=== PATIENT | female | born 1975 | race Caucasian/White ===

== ENCOUNTER → 2016-12-28 | Outpatient (CLI) | payer BC ==
--- NOTE | 2016-12-28 08:55 | US ---
EXAMINATION TYPE: US duplex aorta DATE OF EXAM: 12/28/2016 COMPARISON: NONE CLINICAL HISTORY: 42-year-old female Z82.49 family history AORTIC ANEURYSM. TECHNIQUE: Multiple sonographic images of the abdominal aorta were obtained. FINDINGS: PRINCIPAL STRATEGIST NOTES: Gross morbid obesity, technically difficult study. Abdominal Aorta: Proximal: 2.2cm Mid: 1.9cm Distal: 1.9cm Bifurcation (right and left common iliac arteries): 1.1cm 1.1cm IMPRESSION: 1. Technically difficult exam due to large patient body habitus. 2. Within this limitation, no evidence for significant ectasia or abdominal aortic aneurysm.
== END | disposition home or self-care (01) ==
LOC: RADUSWWP 08:14
PROVIDERS: ATTEND Family Medicine
DX: Z13.6 Encounter for screening for cardiovascular disorders (principal); Z82.49 Family history of ischemic heart disease and other diseases of the circulatory system; R93.9 Diagnostic imaging inconclusive due to excess body fat of patient
CPT/HCPCS: 93979

== ENCOUNTER → 2017-03-28 | Outpatient (CLI) | payer BC ==
--- NOTE | 2017-03-28 12:39 | MM ---
Reason for exam: screening (asymptomatic). Last mammogram was performed 1 year ago. History: Patient is nulliparous. Family history of breast cancer in 2 grandmothers. Took hormonal contraceptives for 2 years beginning at age 19. Physical Findings: A clinical breast exam by your physician is recommended on an annual basis and results should be correlated with mammographic findings. MG Screening Mammo w CAD Bilateral CC and MLO view(s) were taken. Prior study comparison: March 19, 2016, bilateral MG screening mammo w CAD. March 18, 2015, bilateral MG screening mammo w CAD. The breast tissue is heterogeneously dense. This may lower the sensitivity of mammography. No suspicious abnormality. No significant changes when compared with prior studies. ASSESSMENT: Negative, BI-RAD 1 RECOMMENDATION: Routine screening mammogram of both breasts in 1 year.
== END | disposition home or self-care (01) ==
LOC: RADMAMWWP 06:47
PROVIDERS: ATTEND Family Medicine
DX: Z12.31 Encounter for screening mammogram for malignant neoplasm of breast (principal)

== ENCOUNTER → 2017-07-02 | Outpatient (CLI) | payer BC ==
[2017-07-02 09:03] LABS: Basophils # (A) 0.1 k/uL (0-0.2); Basophils % (A) 1 %; Eosinophils # (A) 0.2 k/uL (0-0.7); Eosinophils % (A) 3 %; HCT 42.4 % (34.0-46.0); HGB 14.3 gm/dL (11.4-16.0); Lymphocytes # (A) 2.4 k/uL (1.0-4.8); Lymphocytes % (A) 28 %; MCHC 33.7 g/dL (31.0-37.0); MCV 88.9 fL (80.0-100.0); Monocytes # (A) 0.6 k/uL (0-1.0); Monocytes % (A) 7 %; Neutrophils % (A) 59 %; Platelet Count 381 k/uL (150-450); RBC 4.77 m/uL (3.80-5.40); RDW 12.8 % (11.5-15.5); WBC 8.4 k/uL (3.8-10.6)
[2017-07-02 09:22] LABS: ALT 30 U/L (9-52); AST 16 U/L (14-36); Albumin 4.2 g/dL (3.5-5.0); Alkaline Phosphatase 48 U/L (38-126); Anion Gap 12 mmol/L; Blood Urea Nitrogen 12 mg/dL (7-17); Calcium 9.5 mg/dL (8.4-10.2); Carbon Dioxide 27 mmol/L (22-30); Chloride 102 mmol/L (98-107); Cholesterol 128 mg/dL (<200); Glucose 139 mg/dL (74-99); HDL Cholesterol 54 mg/dL (40-60); LDL Cholesterol,Calculated 43 mg/dL (0-99); Potassium 4.1 mmol/L (3.5-5.1); Sodium 141 mmol/L (137-145); Total Bilirubin 0.4 mg/dL (0.2-1.3); Total Protein 6.7 g/dL (6.3-8.2); Triglycerides 153 mg/dL (<150)
[2017-07-02 18:52] LABS: Hemoglobin A1C 6.8 % (4.0-6.0)
== END | disposition home or self-care (01) ==
LOC: LABWHC1 07:43
PROVIDERS: ATTEND Family Medicine
DX: E11.65 Type 2 diabetes mellitus with hyperglycemia (principal)
CPT/HCPCS: 36415; 80053; 80061; 82043; 82306; 82570; 83036; 83520; 84439; 84443; 85025

== ENCOUNTER 2017-09-13 07:16 | Day surgery (SDC) | payer BC ==
[2017-09-11 15:07] VITALS: BMI 49.7
[~2017-09-13 07:16] MED LIST: LACTATED RINGERS 1,000 ML IV SCH
[2017-09-13 07:48] VITALS: RESP 16; TEMP 98.3
[2017-09-13 07:53] LABS: Glucose,Whole Blood 130 mg/dL (75-99)
[2017-09-13] MEDS ORDERED: LACTATED RINGERS 1,000 ML IV ONE (09:20)
--- NOTE | 2017-09-13 09:20 | P.PCN ---
Date of Procedure: 09/13/17 Procedure(s) Performed: Brief history: Patient is a pleasant 42-year-old white female, scheduled for an elective upper endoscopy as well as colonoscopy as a part of evaluation of epigastric pain, abdominal bloating and heartburn for the last several months duration. She is also scheduled for a colonoscopy as a part of screening for colorectal neoplasia. Her father was diagnosed with colon cancer at age 60. Procedure performed: Esophagogastroduodenoscopy with biopsy Colonoscopy Preoperative diagnosis: Epigastric pain, abdominal bloating and heartburn Screening for colon cancer/family history of colon cancer Anesthesia: MAC Procedure: After informed consent was obtained from the patient was brought into the endoscopy unit and IV sedation was administered by anesthesia under continuous monitoring. Initially upper endoscopy was done. The Olympus GF 160 video endoscope was inserted inserted into the mouth and esophagus intubated without any difficulty and was gradually advanced into the stomach and duodenum and carefully examined. The bulb and second part of the duodenum appeared normal. The scope was then withdrawn into the stomach adequately insufflated with air and upon careful examination the antrum had patchy areas of erythema consistent with gastritis and biopsies were done from this area. The body, cardia and fundus appeared normal. The scope was then withdrawn into the esophagus. The GE junction was located at 40 cm to the incisors. It appeared regular with no erythema erosions or ulcerations. Rest of the esophagus appeared normal. Patient tolerated the procedure well. At this time the patient continued to remain sedation. Initial digital rectal examination was normal. Olympus CF 160 video colonoscope was then inserted into the rectum and gradually advanced to the cecum without any difficulty. Careful examination was performed as the scope was gradually being withdrawn. The prep wafair. The cecum, ascending colon, transverse colon, descending colon , sigmoid colon and rectum appeared normal. Retroflexion was performed in the rectum and no lesions were noted. Patient tolerated the procedure well. Impression: 1. Upper endoscopy revealed mild antral gastritis but no evidence of esophagitis or peptic ulcer disease 2. Colonoscopy was within normal limits with no evidence of colitis or colorectal neoplasia. Recommendations: Findings of this examination were discussed with the patient as well as her family. She was advised to follow with the biopsy results. she can have a repeat screening colonoscopy in 5 years.
[2017-09-13 09:38] VITALS: BP 123/70; PULSE 78
== END 2017-09-13 10:11 | disposition home or self-care (01) ==
LOC: ORWHC2ENDO 07:16
PROVIDERS: ATTEND Internal Medicine Gastroenterology
DX: Z12.11 Encounter for screening for malignant neoplasm of colon (principal); K29.50 Unspecified chronic gastritis without bleeding; K21.0 Gastro-esophageal reflux disease with esophagitis; Z80.0 Family history of malignant neoplasm of digestive organs; E78.5 Hyperlipidemia, unspecified; J45.909 Unspecified asthma, uncomplicated; Z79.1 Long term (current) use of non-steroidal anti-inflammatories (NSAID); Z79.51 Long term (current) use of inhaled steroids; Z79.899 Other long term (current) drug therapy; Z79.84 Long term (current) use of oral hypoglycemic drugs; Z88.8 Allergy status to other drugs, medicaments and biological substances
CPT/HCPCS: 81025; 88305; 43239; G0105

== ENCOUNTER → 2018-03-31 | Outpatient (CLI) | payer BC ==
--- NOTE | 2018-04-01 11:29 | MM ---
Reason for exam: screening (asymptomatic). Last mammogram was performed 1 year ago. History: Patient is nulliparous. Family history of breast cancer in 2 grandmothers. Took hormonal contraceptives for 2 years beginning at age 19. Physical Findings: A clinical breast exam by your physician is recommended on an annual basis and results should be correlated with mammographic findings. MG Screening Mammo w CAD Bilateral CC and MLO view(s) were taken. Prior study comparison: March 28, 2017, bilateral MG screening mammo w CAD. March 19, 2016, bilateral MG screening mammo w CAD. There are scattered fibroglandular densities. There are benign appearing round calcifications bilaterally. No suspicious abnormality. No significant changes when compared with prior studies. ASSESSMENT: Benign, BI-RAD 2 RECOMMENDATION: Routine screening mammogram of both breasts in 1 year.
== END ==
LOC: RADMAMWWP 07:04
PROVIDERS: ATTEND Family Medicine
DX: Z12.31 Encounter for screening mammogram for malignant neoplasm of breast (principal)
CPT/HCPCS: 77067

== ENCOUNTER → 2018-04-02 | Outpatient (CLI) | payer BC ==
--- NOTE | 2018-04-02 13:39 | CT ---
EXAMINATION TYPE: CT sinus wo con DATE OF EXAM: 04/02/2018 COMPARISON: CT brain May 21, 2011. CT facial bones September 07, 2009. HISTORY: Chronic sinusitis per order. Patient complains of sinus pressure, headaches, and blurry visi on. CT DLP: 641.6 mGycm. Automated Exposure Control for Dose Reduction was Utilized. TECHNIQUE: CT scan of the sinuses is performed without contrast, axial images are obtained, coronal r eformatted images are also reviewed. FINDINGS: There is 2.0 x 1.3 cm mucous retention cyst or polyp in inferior right maxillary sinus. The re is no significant opacification or air-fluid levels in the remainder of paranasal sinuses. The os tiomeatal complex is patent bilaterally on the coronal images seen best coronal image 20. Visualized portion of mastoid air cells show no abnormal opacification. The globes are intact bilate rally. IMPRESSION: Marked improvement in acute sinus disease from 2010 study. No acute paranasal sinus dise ase currently.
== END ==
LOC: RADCTMAIN 13:07
PROVIDERS: ATTEND Family Medicine
DX: J32.9 Chronic sinusitis, unspecified (principal)
CPT/HCPCS: 70486

== ENCOUNTER → 2018-08-08 | Outpatient (CLI) | payer BC ==
[2018-08-08 07:37] LABS: Albumin 4.2 g/dL (3.5-5.0); Anion Gap 10 mmol/L; Blood Urea Nitrogen 13 mg/dL (7-17); Calcium 9.8 mg/dL (8.4-10.2); Carbon Dioxide 25 mmol/L (22-30); Chloride 102 mmol/L (98-107); Glucose 283 mg/dL (74-99); Sodium 137 mmol/L (137-145); Total Bilirubin 0.6 mg/dL (0.2-1.3); Total Protein 7.1 g/dL (6.3-8.2)
[2018-08-08 07:41] LABS: Potassium 5.1 mmol/L (3.5-5.1)
[2018-08-08 07:42] LABS: ALT 51 U/L (9-52); AST 39 U/L (14-36); Alkaline Phosphatase 72 U/L (38-126)
[2018-08-08 08:25] LABS: Cholesterol 237 mg/dL (<200); HDL Cholesterol 52 mg/dL (40-60); LDL Cholesterol,Calculated 126 mg/dL (0-99); Triglycerides 293 mg/dL (<150)
[2018-08-08 08:37] LABS: Basophils # (A) 0.1 k/uL (0-0.2); Basophils % (A) 1 %; Eosinophils # (A) 0.2 k/uL (0-0.7); Eosinophils % (A) 2 %; HCT 42.5 % (34.0-46.0); HGB 14.3 gm/dL (11.4-16.0); Lymphocytes # (A) 1.9 k/uL (1.0-4.8); Lymphocytes % (A) 26 %; MCH 30.6 pg (25.0-35.0); MCHC 33.7 g/dL (31.0-37.0); MCV 90.6 fL (80.0-100.0); Mean Platelet Volume 6.9; Monocytes # (A) 0.5 k/uL (0-1.0); Monocytes % (A) 7 %; Neutrophils # (A) 4.4 k/uL (1.3-7.7); Neutrophils % (A) 62 %; Platelet Count 369 k/uL (150-450); RBC 4.69 m/uL (3.80-5.40); WBC 7.1 k/uL (3.8-10.6)
--- NOTE | 2018-08-08 08:47 | CT ---
EXAMINATION TYPE: CT chest w con DATE OF EXAM: 08/08/2018 COMPARISON: Chest x-ray dated 07/18/2018 HISTORY: Solitary pulmonary nodule CT DLP: 835.1 mGycm. Automated Exposure Control for Dose Reduction was Utilized. TECHNIQUE: CT scan of the thorax is performed following with IV Contrast, patient injected with 100 mL of Isovue 300. FINDINGS: LUNGS: As seen on the prior chest radiograph of 07/18/2018 there is a rounded smoothly marginated right upper lobe pulmonary nodule measuring 1.3 cm marked on series 5 image 20 and series 6 image 20. On s oft tissue algorithm this appears to have punctate foci of macroscopic fat suggesting a benign etiolo gy of a hamartoma. No other pulmonary nodules or masses are seen. There is minimal right basilar atel ectasis and subpleural deposition of fat on the right. No focal consolidation or pleural effusion. Th e tracheobronchial tree is patent. MEDIASTINUM: There are no greater than 1 cm hilar or mediastinal lymph nodes. Ascending thoracic aor ta is within normal limits of size measuring 3.5 cm. No pericardial effusion is seen. OTHER: There is decreased attenuation of the hepatic parenchyma diffusely compatible with hepatic jamar atosis. Gallbladder surgically absent. No seen near the [facility] [facility] splenic hilum. Liver is elongated exte nding into the left upper quadrant. Mild multilevel degenerative disc disease is seen throughout the thoracic spine. IMPRESSION: The solitary 1.3 cm right upper lobe pulmonary nodule appears to have punctate foci of ma croscopic fat. Therefore this most likely relates to a benign hamartoma. Short-term follow-up in 6 mo nths is recommended to ensure no interval growth.
[2018-08-08 17:20] LABS: Vitamin D 25 Hydroxy 34.1 ng/mL (30.0-100.0)
[2018-08-08 17:54] LABS: Immunoglobulin E 3.57 IU/mL (0.00-114.00)
[2018-08-08 18:04] LABS: Hemoglobin A1C 9.3 % (4.0-6.0)
== END ==
LOC: RADCTMAIN 06:29
PROVIDERS: ATTEND Internal Medicine Critical Care Medicine
DX: R91.1 Solitary pulmonary nodule (principal)
CPT/HCPCS: 80061; 80053; 84443; 85025; 82785; 82306; 83036; 71260; 36415; Q9967

== ENCOUNTER → 2019-04-02 | Outpatient (CLI) | payer BC ==
--- NOTE | 2019-04-03 13:12 | MM ---
Reason for exam: screening (asymptomatic). Last mammogram was performed 1 year ago. History: Patient is nulliparous. Family history of breast cancer in 2 grandmothers. Took hormonal contraceptives for 2 years beginning at age 19. Physical Findings: A clinical breast exam by your physician is recommended on an annual basis and results should be correlated with mammographic findings. MG Screening Mammo w CAD Bilateral CC and MLO view(s) were taken. Prior study comparison: March 31, 2018, bilateral MG screening mammo w CAD. March 28, 2017, bilateral MG screening mammo w CAD. There are scattered fibroglandular densities. Benign appearing bilateral calcifications. No suspicious abnormality. No significant changes when compared with prior studies. ASSESSMENT: Benign, BI-RAD 2 RECOMMENDATION: Routine screening mammogram of both breasts in 1 year.
== END | disposition home or self-care (01) ==
LOC: RADMAMWWP 07:03
PROVIDERS: ATTEND Family Medicine
DX: Z12.31 Encounter for screening mammogram for malignant neoplasm of breast (principal)
CPT/HCPCS: 77067

== ENCOUNTER 2020-02-18 10:05 | Inpatient (IN) | payer BC ==
[2020-02-18] MEDS ORDERED: ASPIRIN 81 MG PO STA (10:23)
--- NOTE | 2020-02-18 10:47 | ED ---
Chest Pain HPI - General Chief Complaint: Chest Pain Stated Complaint: Abn EKG, Chest pain Time Seen by Provider: 02/18/20 10:22 Source: patient, RN notes reviewed Mode of arrival: ambulatory Limitations: no limitations - History of Present Illness Initial Comments: This a 44-year-old female presents emergency Department chief complaint of chest discomfort. Patient states she has been sick since Saturday was placed on Biaxin steroids by PCP. Patient states that she's been having worsening chest pain in which she's never exhibited in the past. Patient states that she does have hyperlipidemia and diabetes. Patient has been placed on blood pressure medication in the past but had side effects so was discontinued. Patient states that she still has cough and congestion. Patient's pain is in her chest and occasionally her back when she coughs. She also been having headache. - Related Data Home Medications Medication Instructions Recorded Confirmed Furosemide [Lasix] 10 mg PO DAILY PRN 10/05/15 02/18/20 metFORMIN HCL 1,000 mg PO BID 10/05/15 02/18/20 Atorvastatin [Lipitor] 10 mg PO HS 09/11/17 02/18/20 Ergocalciferol (Vitamin D2) 50,000 unit PO WESA 09/11/17 02/18/20 [Vitamin D2] Levothyroxine Sodium [Synthroid] 100 mcg PO DAILY 09/11/17 02/18/20 ALPRAZolam [Xanax] 0.25 mg PO TID PRN 02/18/20 02/18/20 Albuterol Nebulized [Ventolin 2.5 mg INHALATION RT-Q4H PRN 02/18/20 02/18/20 Nebulized] Amoxic-Pot Clav 875-125Mg 1 tab PO Q12HR 02/18/20 02/18/20 [Augmentin 875-125] Budesonide-Formot 160-4.5 Mcg 2 puff INHALATION RT-BID 02/18/20 02/18/20 [Symbicort 160-4.5 Mcg Inhaler] Colchicine [Colcrys] 0.6 mg PO DAILY PRN 02/18/20 02/18/20 Dulaglutide [Trulicity] 1.5 mg SQ WE 02/18/20 02/18/20 predniSONE See Taper PO DAILY 02/18/20 02/18/20 Allergies Allergy/AdvReac Type Severity Reaction Status Date / Time wheat Allergy Unknown Nausea & Verified 02/18/20 10:56 Vomiting drospirenone Allergy Rash/Hives Verified 02/18/20 10:56 [From Danita (28)] ethinyl estradiol Allergy Rash/Hives Verified 02/18/20 10:56 [From Danita (28)] Milk Containing Products Allergy Nausea & Verified 02/18/20 10:56 [Dairy] Vomiting Review of Systems ROS Statement: Those systems with pertinent positive or pertinent negative responses have been documented in the HPI. ROS Other: All systems not noted in ROS Statement are negative. EKG Findings - EKG Comments: EKG Findings:: EKG performed at 10:30 normal sinus rhythm rate of 82 IA 126 QRS 88 QT/QTC 370/432 Past Medical History Past Medical History: Asthma, Diabetes Mellitus, GERD/Reflux, Hyperlipidemia Additional Past Medical History / Comment(s): migraines, gastritis, gout, ,enlarged liver. , States frequent diarrhea, vomits daily & stomach pain. History of Any Multi-Drug Resistant Organisms: None Reported Past Surgical History: Cholecystectomy Additional Past Surgical History / Comment(s): deviated septum/sinus surgery Additional Past Anesthesia/Blood Transfusion Reaction / Comment(s): hard to wake up after anesthesia. felt sore for days after general anesthesia. Pts sister has difficulty waking up also. Past Psychological History: Anxiety Smoking Status: Never smoker Past Alcohol Use History: Occasional Past Drug Use History: Marijuana - Past Family History Father Family Medical History: Cancer Additional Family Medical History / Comment(s): colon General Exam Limitations: no limitations General appearance: alert, in no apparent distress Head exam: Present: atraumatic, normocephalic, normal inspection Eye exam: Present: normal appearance, PERRL, EOMI. Absent: scleral icterus, conjunctival injection, periorbital swelling ENT exam: Present: normal exam, normal oropharynx, mucous membranes moist Neck exam: Present: normal inspection. Absent: tenderness, meningismus, lymphadenopathy Respiratory exam: Present: normal lung sounds bilaterally, chest wall tenderness. Absent: respiratory distress, wheezes, rales, rhonchi, stridor Cardiovascular Exam: Present: regular rate, normal rhythm, normal heart sounds. Absent: systolic murmur, diastolic murmur, rubs, gallop, clicks GI/Abdominal exam: Present: soft, normal bowel sounds. Absent: distended, tenderness, guarding, rebound, rigid Neurological exam: Present: alert, oriented X3, CN II-XII intact, reflexes normal. Absent: motor sensory deficit Course Vital Signs 02/18/20 10:13 Temperature 98.1 F Pulse Rate 100 Respiratory 18 Rate Blood Pressure 181/98 O2 Sat by Pulse 97 Oximetry Chest Pain MDM - MDM Patient CT was reviewed there is no evidence of PE was notable denies getting aneurysm. Patient 20 is elevated at 0.3. Patient was started on heparin with admission to cardiology for NSTEMI Critical Care Time Critical Care Time: Yes Total Critical Care Time: 30 Critical Care Time: A total 35 minutes of critical using evaluate the patient, reviewed the history, ordering labs, EKG and chest x-ray and CTA. Patient found to have elevated troponin patient was started on heparin CT was obtained to rule out PE thoracic aneurysm PE. Patient's case discussed with Dr. Hall. Patient be admitted for cardiology evaluation. Disposition Clinical Impression: NSTEMI (non-ST elevated myocardial infarction) Disposition: ADMITTED IP TO THIS HOSP Condition: Fair Referrals: Eleno Aiken MD [Primary Care Provider] - 1-2 days
[2020-02-18 11:29] LABS: ALT 54 U/L (4-34); AST 61 U/L (14-36); African American GFR (CKD) >90 (>60 ml/min/1.73 sqM); Albumin 4.5 g/dL (3.5-5.0); Alkaline Phosphatase 65 U/L (38-126); Anion Gap 14 mmol/L; Blood Urea Nitrogen 14 mg/dL (7-17); Calcium 9.7 mg/dL (8.4-10.2); Carbon Dioxide 22 mmol/L (22-30); Chloride 99 mmol/L (98-107); Glucose 227 mg/dL (74-99); Magnesium 1.5 mg/dL (1.6-2.3); Non-African American GFR(CKD) >90 (>60 ml/min/1.73 sqM); Sodium 135 mmol/L (137-145); Total Bilirubin 0.7 mg/dL (0.2-1.3); Total Protein 7.2 g/dL (6.3-8.2)
[2020-02-18 11:33] LABS: Basophils # (A) 0.1 k/uL (0-0.2); Basophils % (A) 1 %; Eosinophils # (A) 0.2 k/uL (0-0.7); Eosinophils % (A) 1 %; HCT 45.6 % (34.0-46.0); HGB 15.5 gm/dL (11.4-16.0); Lymphocytes # (A) 2.2 k/uL (1.0-4.8); Lymphocytes % (A) 17 %; MCH 30.1 pg (25.0-35.0); MCHC 34.1 g/dL (31.0-37.0); MCV 88.1 fL (80.0-100.0); Mean Platelet Volume 7.1; Monocytes # (A) 0.9 k/uL (0-1.0); Monocytes % (A) 7 %; Neutrophils # (A) 9.4 k/uL (1.3-7.7); Neutrophils % (A) 73 %; Platelet Count 369 k/uL (150-450); RBC 5.17 m/uL (3.80-5.40); RDW 12.4 % (11.5-15.5); WBC 12.8 k/uL (3.8-10.6)
--- NOTE | 2020-02-18 11:54 | XR ---
EXAMINATION TYPE: XR chest 2V DATE OF EXAM: 02/18/2020 COMPARISON: 07/17/2018 HISTORY: 44-year-old female with chest pain TECHNIQUE: PA and lateral views FINDINGS: The cardiomediastinal silhouette, aorta, and pulmonary vasculature are within normal limits. Redemons trated 1.4 cm right and right midlung nodule. Otherwise, lungs and pleural spaces are clear. IMPRESSION: A right midlung nodule measuring 1.4 cm was present on the patient's 07/17/2018 radiograph. Stability for over a year and a half suggests a benign etiology. Consider ongoing 6-12 month radiographic follo w up. No acute cardiopulmonary process.
[2020-02-18 12:01] LABS: Partial Thromboplastin Time 22.2 sec (22.0-30.0); Prothrombin Time 9.9 sec (9.0-12.0)
--- NOTE | 2020-02-18 13:14 | CT ---
EXAMINATION TYPE: CT angio chest DATE OF EXAM: 02/18/2020 COMPARISON: 08/08/2018 HISTORY: chest pain CONTRAST: CT chest with contrast and 3D reconstruction with MIP imaging is performed with IV Contrast, patient injected with 100 mL of Isovue 300. Contrast-enhanced CT of the chest was performed through the course of the pulmonary arteries with niall g and mediastinal window settings submitted. 3D reconstruction with MIP imaging was also performed. PULMONARY ARTERIES: The pulmonary arteries and their major tributaries are patent. I do not see ruth ann dence for sizable filling defect to suggest pulmonary embolic process. LUNGS: The lungs are clear and free of infiltrate. No evidence for atelectasis. Stable nodule right u pper lobe smoothly marginated felt to reflect benign process previously and possibly hamartoma. No pl eural effusion. MEDIASTINUM: Thoracic aorta is of normal caliber,however, evaluation is limited given timing of the contrast bolus. If there is concern for thoracic aortic pathology consider VERÓNICA. Correlate clinicall y . The heart is not enlarged. No evidence for mediastinal mass. No mediastinal lymph nodes greater than 1cm. HILAR STRUCTURES: No evidence for mass. No hilar lymph nodes greater than 1 cm. UPPER ABDOMEN: No significant abnormality is seen. IMPRESSION: 1. No evidence for Pulmonary embolism at this time.
[2020-02-18] MEDS ORDERED: HEPARIN SODIUM,PORCINE 5,000 UNIT/ML 1 ML VIAL IV ONE (13:21)
[2020-02-18] MEDS ORDERED: NITROGLYCERIN SL TABS 0.4 MG TAB SUBLINGUAL PRN ×2 (13:21→14:58)
[2020-02-18] MEDS ORDERED: HEPARIN SODIUM,PORCINE 5,000 UNIT/ML 1 ML VIAL IV PRN (13:21)
[2020-02-18] MEDS ORDERED: ACETAMINOPHEN TAB 325 MG TAB PO STA (13:26)
[2020-02-18] MEDS ORDERED: COLCHICINE 0.6 MG EACH PO PRN (13:52)
[2020-02-18] MEDS ORDERED: ALPRAZolam 0.25 MG TAB PO PRN ×2 (13:52→14:58)
[2020-02-18] MEDS ORDERED: ALBUTEROL NEBULIZED 2.5 MG/3 ML INHALATION PRN (13:52)
[2020-02-18] MEDS: HEPARIN SOD,PORK IN 0.45% NACL 25,000 UNIT in 0.45% NACL 1 250ML.BAG IV SCH (14:18)
[2020-02-18] MEDS ORDERED: ALPRAZolam 0.5 MG TAB PO PRN (14:58)
[2020-02-18] MEDS: metFORMIN 500 MG TAB PO SCH (15:48)
[2020-02-18] MEDS ORDERED: HYDROmorphone 0.5 MG/0.5 ML SYRINGE IVP PRN (15:49)
--- NOTE | 2020-02-18 15:54 | P.CRDCN ---
History of Present Illness Consult date: 02/18/20 History of present illness: CHIEF COMPLAINT: Chest pain HISTORY OF PRESENT ILLNESS: 44-year-old female presented to emergency room with chief complaint of chest pain. Patient does not follow up outpatient with a performance test architect. She has a history of diabetes mellitus, hyperlipidemia, and hypertension. Patient reports she began having chest pain yesterday. The pain was located in the middle of her chest and radiated down her left arm. She also reports feeling diaphoretic. She denied any shortness of breath. 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 Patient reports she has been noncompliant with her cholesterol medications but has recently began taking them again. She states her chest pain has improved and is currently rating it a 3 out of 10. She denies shortness of breath at this time. DIAGNOSTICS: EKG reveals sinus rhythm with Q waves present Chest xray reveals stable right lung nodule but negative for an acute process CTA negative for pulmonary embolism Laboratory data: WBC 12.8. Hemoglobin 15.5. Platelet count 369. Sodium 135. Potassium 4.0. BUN 14. Creatinine 0.63. Magnesium 1.5. Troponin 0.359. Lipase 388. Current home cardiac medications include lipitor 10mg daily and lasix 10mg daily PRN REVIEW OF SYSTEMS: CONSTITUTIONAL: Denies fever or chills. HEENT: Denies blurred vision, vision changes, or eye pain. Denies hemoptysis CARDIOVASCULAR: Reports chest pain. Denies orthopnea, PND or palpitations RESPIRATORY: No shortness of breath. GASTROINTESTINAL: Denies abdominal pain. Denies nausea or vomiting. HEMATOLOGIC: Denies bleeding disorders. GENITOURINARY: Denies any blood in urine. SKIN: Denies pruitis. Denies rash. PHYSICAL EXAM: VITAL SIGNS: Reviewed. GENERAL: Well-developed in no acute distress. HEENT: Head is normocephalic. Pupils are equal, round. Sclerae anicteric. Mucous membranes of the mouth are moist. Neck supple. No JVD or thyromegaly LUNGS: Respirations even and unlabored. Lungs essentially clear to auscultation bilaterally. HEART: Regular rate and rhythm. S1 and S2 heard. ABDOMEN: Soft. Nondistended. Nontender. EXTREMITIES: Normal range of motion. No clubbing or cyanosis. Peripheral pulses intact. No lower extremity edema NEUROLOGIC: Awake and alert. Oriented x 3. ASSESSMENT: Non ST elevated myocardial infarction Hypertension Hyperlipidemia Diabetes mellitus, type II Morbid obesity, BMI 49.7 PLAN: Continue IV heparin infusion Continue aspirin, lipitor, and metoprolol Obtain 2-D echo to assess cardiac structure and function Patient to undergo cardiac cath tomorrow with Dr. Mcpherson Nurse practitioner note has been reviewed by physician. Signing provider agrees with the documented findings, assessment, and plan of care. Past Medical History Past Medical History: Asthma, Diabetes Mellitus, GERD/Reflux, Hyperlipidemia, Liver Disease, Osteoarthritis (OA), Pneumonia, Thyroid Disorder Additional Past Medical History / Comment(s): NIDDM type II, neuropathy bilateral feet-mild, bilateral diabetic retinopathy, htn-occasionall found high but when placed on antihypertensives she goes too low, bronchitis, enlarged liver, migraines, gout R foot, UTIs, hypothyroid, R knee pain/OA, history of frequent vomiting-was daily but states since starting allergy injections vomiting has decreased to about once a week. History of Any Multi-Drug Resistant Organisms: None Reported Past Surgical History: Cholecystectomy Additional Past Surgical History / Comment(s): EGD. colonoscopy, deviated septum/sinus surgery Additional Past Anesthesia/Blood Transfusion Reaction / Comment(s): hard to wake up after anesthesia. felt sore for days after general anesthesia. Pts sister has difficulty waking up also. Past Psychological History: Anxiety Additional Psychological History / Comment(s): Pt resides with her spouse. She has a nebulizer. Pt is independent. Smoking Status: Never smoker Past Alcohol Use History: Occasional Past Drug Use History: Marijuana Additional Drug Use History / Comment(s): Occasional marijuana. - Past Family History Father Family Medical History: Cancer Additional Family Medical History / Comment(s): colon Mother Family Medical History: Congestive Heart Failure (CHF), Fibromyalgia Additional Family Medical History / Comment(s): Mental illnesses Medications and Allergies Home Medications Medication Instructions Recorded Confirmed Type Furosemide [Lasix] 10 mg PO DAILY PRN 10/05/15 02/18/20 History metFORMIN HCL 1,000 mg PO BID 10/05/15 02/18/20 History Atorvastatin [Lipitor] 10 mg PO HS 09/11/17 02/18/20 History Ergocalciferol (Vitamin D2) 50,000 unit PO WESA 09/11/17 02/18/20 History [Vitamin D2] Levothyroxine Sodium [Synthroid] 100 mcg PO DAILY 09/11/17 02/18/20 History ALPRAZolam [Xanax] 0.25 mg PO TID PRN 02/18/20 02/18/20 History Albuterol Nebulized [Ventolin 2.5 mg INHALATION RT-Q4H PRN 02/18/20 02/18/20 History Nebulized] Amoxic-Pot Clav 875-125Mg 1 tab PO Q12HR 02/18/20 02/18/20 History [Augmentin 875-125] Budesonide-Formot 160-4.5 Mcg 2 puff INHALATION RT-BID 02/18/20 02/18/20 History [Symbicort 160-4.5 Mcg Inhaler] Colchicine [Colcrys] 0.6 mg PO DAILY PRN 02/18/20 02/18/20 History Dulaglutide [Trulicity] 1.5 mg SQ WE 02/18/20 02/18/20 History predniSONE See Taper PO DAILY 02/18/20 02/18/20 History Allergies Allergy/AdvReac Type Severity Reaction Status Date / Time wheat Allergy Unknown Nausea & Verified 02/18/20 10:56 Vomiting drospirenone Allergy Rash/Hives Verified 02/18/20 10:56 [From Danita (28)] ethinyl estradiol Allergy Rash/Hives Verified 02/18/20 10:56 [From Danita (28)] Milk Containing Products Allergy Nausea & Verified 02/18/20 10:56 [Dairy] Vomiting Physical Exam Vitals: Vital Signs Temp Pulse Resp BP Pulse Ox 02/18/20 14:22 98.5 F 91 16 139/75 97 02/18/20 12:00 88 18 144/89 99 02/18/20 11:00 98.0 F 84 18 152/84 99 02/18/20 10:13 98.1 F 100 18 181/98 97 Intake and Output 02/17/20 02/18/20 02/18/20 22:59 06:59 14:59 Other: Weight 135.533 kg Results 02/18/20 10:39 02/18/20 10:39 Cardiac Enzymes 02/18/20 02/18/20 Range/Units 10:39 10:39 AST 61 H (14-36) U/L Troponin I 0.359 H* (0.000-0.034) ng/mL Coagulation 02/18/20 Range/Units 10:39 PT 9.9 (9.0-12.0) sec APTT 22.2 (22.0-30.0) sec CBC 02/18/20 Range/Units 10:39 WBC 12.8 H (3.8-10.6) k/uL RBC 5.17 (3.80-5.40) m/uL Hgb 15.5 (11.4-16.0) gm/dL Hct 45.6 (34.0-46.0) % Plt Count 369 (150-450) k/uL Comprehensive Metabolic Panel 02/18/20 Range/Units 10:39 Sodium 135 L (137-145) mmol/L Potassium 4.0 (3.5-5.1) mmol/L Chloride 99 (98-107) mmol/L Carbon Dioxide 22 (22-30) mmol/L BUN 14 (7-17) mg/dL Creatinine 0.63 (0.52-1.04) mg/dL Glucose 227 H (74-99) mg/dL Calcium 9.7 (8.4-10.2) mg/dL AST 61 H (14-36) U/L ALT 54 H (4-34) U/L Alkaline Phosphatase 65 (38-126) U/L Total Protein 7.2 (6.3-8.2) g/dL Albumin 4.5 (3.5-5.0) g/dL Current Medications Generic Name Dose Route Start Last Admin Trade Name Freq PRN Reason Stop Dose Admin Albuterol Sulfate 2.5 mg 02/18/20 13:52 Ventolin Nebulized INHALATION RT-Q4H PRN Shortness Of Breath Alprazolam 0.25 mg 02/18/20 13:52 Xanax PO TID PRN Anxiety Amoxicillin/Clavulanate Potassium 1 each 02/18/20 21:00 Augmentin 875-125 PO Q12HR MIGUEL ÁNGEL Aspirin 325 mg 02/19/20 09:00 Aspirin PO DAILY [facility] Atorvastatin Calcium 80 mg 02/18/20 21:00 Lipitor PO HS MIGUEL ÁNGEL Budesonide/Formoterol Fumarate 2 puff 02/18/20 20:00 Symbicort 160-4.5 Mcg Inhaler INHALATION RT-BID MIGUEL ÁNGEL Colchicine 0.6 mg 02/18/20 13:52 Colcrys PO DAILY PRN GOUT Heparin Sodium (Porcine) 0 unit 02/18/20 13:21 Heparin IV Q6HR PRN Low PTT Protocol Heparin Sodium/Sodium Chloride 250 mls @ 10.029 mls/hr 02/18/20 13:30 02/18/20 14:18 25,000 unit/ Sodium Chloride IV 7.38 units/kg/hr .Q24H MIGUEL ÁNGEL 10 mls/hr Administration Protocol 7.4 UNITS/KG/HR Insulin Aspart 0 unit 02/18/20 17:30 Novolog SQ ACHS [facility] Protocol Levothyroxine Sodium 100 mcg 02/19/20 06:30 Synthroid PO DAILY@0630 [facility] Metformin HCl 1,000 mg 02/18/20 17:30 Glucophage PO AC-BID [facility] Metoprolol Tartrate 12.5 mg 02/18/20 14:06 Lopressor PO BID [facility] Nitroglycerin 0.4 mg 02/18/20 13:21 Nitrostat SUBLINGUAL Q5M PRN Chest Pain Intake and Output 02/17/20 02/18/20 02/18/20 22:59 06:59 14:59 Other: Weight 135.533 kg Patient Weight 02/19/20 06:59 Weight 135.533 kg 02/18/20 10:39 02/18/20 10:39
--- NOTE | 2020-02-18 16:00 | ECHOF ---
Referral Reason:NSTEMI MEASUREMENTS -------- HEIGHT: 165.1 cm WEIGHT: 135.2 kg BP: 181/88 RVIDd: 3.2 cm (< 3.3) IVSd: 1.3 cm (0.6 - 1.1) LVIDd: 4.3 cm (3.9 - 5.3) LVPWd: 1.3 cm (0.6 - 1.1) IVSs: 1.9 cm LVIDs: 2.8 cm LVPWs: 1.8 cm LA Diam: 3.4 cm (2.7 - 3.8) LAESV Index (A-L): 15.80 ml/m Ao Diam: 3.5 cm (2.0 - 3.7) AV Cusp: 2.2 cm (1.5 - 2.6) MV EXCURSION: 15.618 mm (> 18.000) MV EF SLOPE: 80 mm/s (70 - 150) EPSS: 0.5 cm MV E Evan: 0.70 m/s MV DecT: 233 ms MV A Evan: 0.65 m/s MV E/A Ratio: 1.09 FINDINGS -------- Sinus rhythm. This was a technically good study. The left ventricular size is normal. There is mild concentric left ventricular hypertrophy. Overa ll left ventricular systolic function is normal with, an EF between 60 - 65 %. The right ventricle is normal in size. Normal LA size by volume 22+/-6 ml/m2. The right atrium is normal in size. Interatrial and interventricular septum intact. The aortic valve is trileaflet and appears structurally normal. The mitral valve is normal. The tricuspid valve appears structurally normal. Trace/mild (physiologic) pulmonic regurgitation. The aortic root size is normal. The descending aorta is not well visualized. There is a echodensity most consistent with a mirror artifact in the descending aorta without evidence of aortic dissection or aneurysm. Normal inferior vena cava with normal inspiratory collapse consistent with estimated right atrial pre ssure of 5 mmHg. There is no pericardial effusion. CONCLUSIONS -------- 1. The left ventricular size is normal. 2. There is mild concentric left ventricular hypertrophy. 3. Overall left ventricular systolic function is normal with, an EF between 60 - 65 %. 4. Trace/mild (physiologic) pulmonic regurgitation. 5. There is no pericardial effusion. SIGNAL OPERATOR TECHNICAL: Indira Gresham RDCS
--- NOTE | 2020-02-18 16:12 | P.HPIM ---
History of Present Illness H&P Date: 02/18/20 Chief Complaint: chest pressure History of presenting complaint: This is a pleasant 44-year-old patient who follows with Dr. Aiken. Chronic stable medical conditions include asthma, diabetes, GERD, hyperlipidemia, enlarged liver being worked up, peripheral neuropathy, mild diabetic retinopathy, migraines, hypothyroid anxiety. Patient is being treated for bronchitis. One week antibiotics and steroid. Finished the last pill this morning. Yesterday she was working from home starting having pressure across the check going to her neck. Appetite and rundown. Slight perspiration. Came into work today. 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 EKG was don e. He found some changes and was sent to the ER. Initial troponin was 0.359. IV heparin was started. Review of systems: GEN.: Tired EYES: None HEENT: None NECK: None RESPIRATORY: [Mild residual respiratory symptoms CARDIOVASCULAR: As above GASTROINTESTINAL: None GENITOURINARY: None MUSCULOSKELETAL: Aches and pains LYMPHATICS: None HEMATOLOGICAL: None PSYCHIATRY: Slight anxiety NEUROLOGICAL: None Past medical history to include: Asthma, diabetes, GERD, hyperlipidemia, enlarged liver, osteoarthritis, hypothyroid, diabetic peripheral neuropathy, diabetic retinopathy, history of frequent vomiting, anxiety Social history: Does not smoke. Alcohol occasionally. . Medical debility. Occasionally uses marijuana for headaches. Physical examination: VITAL SIGNS: 98.1, 100, 18, and 52 bradycardia 4, 97% on room air GENERAL: BMI 49.7, sitting on bed, awake. EYES: Pupils equal. Conjunctiva normal. HEENT: External appearance of nose and ears normal, oral cavity grossly normal. NECK: JVD not raised; masses not palpable. HEART: First and second heart sounds are normal; no edema. LUNGS: Respiratory rate normal; clear to auscultation. ABDOMEN: Soft, nontender, liver spleen not palpable, no masses palpable. PSYCH: Alert and oriented x3; mood and affect normal. NEUROLOGICAL: Cranial nerves grossly intact; no facial asymmetry, power and sensation grossly intact. LYMPHATICS: No lymph nodes palpable in the axilla and neck INVESTIGATIONS, reviewed in the clinical context: White count 12.8 hemoglobin 15.5 pressure 4 creatinine 0.63 Troponin I 0.359, 0.451 EKG tracing personally reviewed by va-shows Q waves in inferior leads and septal ST depression and inferolateral leads Chest x-ray film personally reviewed by me-to the right midlung nodule which has been stable since June 2018. Previous testing: LDL 112 triglycerides 272 TSH 4.3 Assessment: -Acute non-Q wave AR, was patient's symptoms started yesterday. Patient's had some intermittent chest pain today. He started and aspirin and beta jelly and IV heparin -Patient recovering from acute bronchitis -Diabetes mellitus type 2 uncontrolled with hyperglycemia secondary to steroids -GERD -Hyperlipidemia -enlargedLiver, suspect NAFLD -Hypothyroid -Diabetic peripheral neuropathy and diabetic retinopathy -Chronic gout -Essential hypertension -Morbid obesity BMI 49.7 Plan: Home medications resumed. Patient put on IV heparin. Aspirin. Beta jelly. Spoke to Tanisha AZAR from cardiology-patient we will need a cardiac cath. Care was discussed with the patient question were answered. Accu-Cheks will be followed. We will do a liver ultrasound likely NAFLD. Past Medical History Past Medical History: Asthma, Diabetes Mellitus, GERD/Reflux, Hyperlipidemia, Liver Disease, Osteoarthritis (OA), Pneumonia, Thyroid Disorder Additional Past Medical History / Comment(s): NIDDM type II, neuropathy bilateral feet-mild, bilateral diabetic retinopathy, htn-occasionall found high but when placed on antihypertensives she goes too low, bronchitis, enlarged liver, migraines, gout R foot, UTIs, hypothyroid, R knee pain/OA, history of fr equent vomiting-was daily but states since starting allergy injections vomiting has decreased to about once a week. History of Any Multi-Drug Resistant Organisms: None Reported Past Surgical History: Cholecystectomy Additional Past Surgical History / Comment(s): EGD. colonoscopy, deviated septum/sinus surgery Additional Past Anesthesia/Blood Transfusion Reaction / Comment(s): hard to wake up after anesthesia. felt sore for days after general anesthesia. Pts sister has difficulty waking up also. Past Psychological History: Anxiety Additional Psychological History / Comment(s): Pt resides with her spouse. She has a nebulizer. Pt is independent. Smoking Status: Never smoker Past Alcohol Use History: Occasional Past Drug Use History: Marijuana Additional Drug Use History / Comment(s): Occasional marijuana. - Past Family History Father Family Medical History: Cancer Additional Family Medical History / Comment(s): colon Mother Family Medical History: Congestive Heart Failure (CHF), Fibromyalgia Additional Family Medical History / Comment(s): Mental illnesses Medications and Allergies Home Medications Medication Instructions Recorded Confirmed Type Furosemide [Lasix] 10 mg PO DAILY PRN 10/05/15 02/18/20 History metFORMIN HCL 1,000 mg PO BID 10/05/15 02/18/20 History Atorvastatin [Lipitor] 10 mg PO HS 09/11/17 02/18/20 History Ergocalciferol (Vitamin D2) 50,000 unit PO WESA 09/11/17 02/18/20 History [Vitamin D2] Levothyroxine Sodium [Synthroid] 100 mcg PO DAILY 09/11/17 02/18/20 History ALPRAZolam [Xanax] 0.25 mg PO TID PRN 02/18/20 02/18/20 History Albuterol Nebulized [Ventolin 2.5 mg INHALATION RT-Q4H PRN 02/18/20 02/18/20 History Nebulized] Amoxic-Pot Clav 875-125Mg 1 tab PO Q12HR 02/18/20 02/18/20 History [Augmentin 875-125] Budesonide-Formot 160-4.5 Mcg 2 puff INHALATION RT-BID 02/18/20 02/18/20 History [Symbicort 160-4.5 Mcg Inhaler] Colchicine [Colcrys] 0.6 mg PO DAILY PRN 02/18/20 02/18/20 History Dulaglutide [Trulicity] 1.5 mg SQ WE 02/18/20 02/18/20 History predniSONE See Taper PO DAILY 02/18/20 02/18/20 History Allergies Allergy/AdvReac Type Severity Reaction Status Date / Time wheat Allergy Unknown Nausea & Verified 02/18/20 10:56 Vomiting drospirenone Allergy Rash/Hives Verified 02/18/20 10:56 [From Danita (28)] ethinyl estradiol Allergy Rash/Hives Verified 02/18/20 10:56 [From Danita (28)] Milk Containing Products Allergy Nausea & Verified 02/18/20 10:56 [Dairy] Vomiting Physical Exam Vitals: Vital Signs Temp Pulse Resp BP Pulse Ox 02/18/20 14:22 98.5 F 91 16 139/75 97 02/18/20 12:00 88 18 144/89 99 02/18/20 11:00 98.0 F 84 18 152/84 99 02/18/20 10:13 98.1 F 100 18 181/98 97 Intake and Output 02/18/20 02/18/20 02/18/20 06:59 14:59 22:59 Other: # Voids 0 Weight 135.533 kg Results CBC & Chem 7: 02/18/20 10:39 02/18/20 10:39 Labs: Abnormal Lab Results - Last 24 Hours (Table) 02/18/20 02/18/20 02/18/20 Range/Units 10:39 10:39 10:39 WBC 12.8 H (3.8-10.6) k/uL Neutrophils # 9.4 H (1.3-7.7) k/uL Sodium 135 L (137-145) mmol/L Glucose 227 H (74-99) mg/dL Magnesium 1.5 L (1.6-2.3) mg/dL AST 61 H (14-36) U/L ALT 54 H (4-34) U/L Troponin I 0.359 H* (0.000-0.034) ng/mL Lipase 388 H (23-300) U/L 02/18/20 Range/Units 14:09 WBC (3.8-10.6) k/uL Neutrophils # (1.3-7.7) k/uL Sodium (137-145) mmol/L Glucose (74-99) mg/dL Magnesium (1.6-2.3) mg/dL AST (14-36) U/L ALT (4-34) U/L Troponin I 0.451 H* (0.000-0.034) ng/mL Lipase (23-300) U/L Thrombosis Risk Factor Assmnt - Choose All That Apply Any of the Below Risk Factors Present?: Yes Each Factor Represents 1 point: Acute AR, Age 41-60 years, Obesity (BMI >25) Other Risk Factors: No Other congenital or acquired thrombophilia - If yes, enter type in comment: No Thrombosis Risk Factor Assessment Total Risk Factor Score: 3 Thrombosis Risk Factor Assessment Level: Moderate Risk
[2020-02-18 16:44] LABS: Glucose,Whole Blood 173 mg/dL (75-99)
[2020-02-18] MEDS: MAGNESIUM SULFATE-D5W PMX 1 GM in DEXTROSE/WATER 1 100ML.BAG IVPB SCH ×2 (16:47→21:55)
[2020-02-18] MEDS: METOPROLOL TARTRATE 12.5 MG TAB PO SCH ×2 (16:47→21:56)
[2020-02-18] MEDS: SODIUM CHLORIDE 0.9% 1,000 ML in EMPTY BAG 1 BAG IV ONE (16:48)
[2020-02-18] MEDS: INSULIN ASPART (NovoLOG) 100 UNIT/ML VIAL SQ SCH ×2 (18:52→21:56)
[2020-02-18] MEDS: SYMBICORT 160-4.5 MCG INHALER INHALATION SCH (20:41)
[2020-02-18 21:44] LABS: Glucose,Whole Blood 146 mg/dL (75-99)
[2020-02-18] MEDS: ATORVASTATIN 80 MG TAB PO SCH (21:54)
[2020-02-18] MEDS: AMOXIC-POT CLAV 875-125MG 1 EACH TAB PO SCH (21:55)
--- NOTE | 2020-02-18 22:20 | US ---
EXAMINATION TYPE: US abdomen limited DATE OF EXAM: 02/18/2020 COMPARISON: US 2014 CLINICAL HISTORY: enlarged liver. Enlarged liver. Cholecystectomy 2013. EXAM MEASUREMENTS: Liver Length: 17.3 cm Gallbladder Wall: Cholecystectomy. CBD: Not well visualized, measured at 0.51 cm Right Kidney: 12.3 x 7.0 x 5.7 cm Limited due to patient body habitus and overlying bowel gas. Pancreas: Limited visibility. Liver: Appears to have an increased echogenicity and increased attenuation. Measures upper limits of normal. Gallbladder: Cholecystectomy. Evidence for sonographic Gresham's sign: No CBD: Limited. Right Kidney: No hydronephrosis or masses seen. measures upper limits of normal versus slightly enla rged. IMPRESSION: Fatty infiltration of the liver. No dilated ducts. Limited exam. No evidence of right-livan ed renal mass or obstruction.
[2020-02-19] MEDS: AMOXIC-POT CLAV 875-125MG 1 EACH TAB PO SCH ×2 (05:38→20:54)
[2020-02-19] MEDS: LEVOTHYROXINE 100 MCG TAB PO SCH (05:39)
[2020-02-19] MEDS: METOPROLOL TARTRATE 12.5 MG TAB PO SCH (05:39)
[2020-02-19] MEDS ORDERED: ASPIRIN 325 MG TAB PO ONE (06:00)
[2020-02-19] MEDS ORDERED: ATORVASTATIN 80 MG TAB PO ONE (06:00)
[2020-02-19] MEDS: metFORMIN 500 MG TAB PO SCH ×2 (06:20→17:16)
[2020-02-19 07:04] LABS: Glucose,Whole Blood 164 mg/dL (75-99)
[2020-02-19] MEDS: INSULIN ASPART (NovoLOG) 100 UNIT/ML VIAL SQ SCH ×4 (07:05→20:54)
[2020-02-19 07:16] LABS: Mean Platelet Volume 7.4; Platelet Count 381 k/uL (150-450)
[2020-02-19 07:33] LABS: Cholesterol 247 mg/dL (<200); HDL Cholesterol 45 mg/dL (40-60)
[2020-02-19 07:44] LABS: Triglycerides 760 mg/dL (<150)
[2020-02-19] MEDS: SYMBICORT 160-4.5 MCG INHALER INHALATION SCH ×2 (07:59→18:51)
[2020-02-19] MEDS ORDERED: ASPIRIN 325 MG TAB PO SCH (09:00)
[2020-02-19] MEDS: SODIUM CHLORIDE 0.9% 1,000 ML in EMPTY BAG 1 BAG IV ONE (09:24)
[2020-02-19 09:31] VITALS: RESP 16
[2020-02-19] MEDS ORDERED: LIDOCAINE 1% INJ 10MG/ML (20 ML MDV) ONE (10:02)
[2020-02-19] MEDS ORDERED: VERAPAMIL 2.5 MG/ML 2 ML AMP ONE (10:02)
[2020-02-19] MEDS ORDERED: HEPARIN SODIUM 1,000 UN/ML (10ML VL) ONE (10:12)
[2020-02-19] MEDS: MIDAZOLAM 2 MG/2 ML VIAL IVP ONE ×3 (10:21→10:29)
[2020-02-19] MEDS ORDERED: IV FLUID CONTINUATION 1,000 ML IV ONE (10:22)
[2020-02-19] MEDS ORDERED: LIDOCAINE 1% INJ 10MG/ML (20 ML MDV) SQ ONE (10:29)
[2020-02-19] MEDS ORDERED: VERAPAMIL SYRINGE (5 MG/10 ML) INTRAARTER ONE (10:30)
[2020-02-19] MEDS ORDERED: fentaNYL (PF) 50 MCG/ML 2 ML AMP ONE (10:31)
[2020-02-19] MEDS: fentaNYL (PF) 50 MCG/ML 2 ML AMP IVP ONE ×2 (10:33→11:12)
[2020-02-19] MEDS ORDERED: HEPARIN SODIUM 1,000 UN/ML (10ML VL) IV ONE (10:36)
[2020-02-19] MEDS ORDERED: IOPAMIDOL-370 100ML BTL INJ ONE ×2 (10:56→11:29)
[2020-02-19] MEDS ORDERED: BIVALIRUDIN BOLUS 250 MG/50 ML IV ONE (11:00)
[2020-02-19] MEDS ORDERED: BIVALIRUDIN 250 MG in SODIUM CHLORIDE 0.9% 50 ML IV ONE ×2 (11:02→11:19)
[2020-02-19] MEDS: NITROGLYCERIN 1000MCG/10ML SYRINGE INTRACORON ONE ×2 (11:09→11:24)
[2020-02-19] MEDS ORDERED: CLOPIDOGREL 75 MG TAB ONE (11:22)
[2020-02-19] MEDS ORDERED: CLOPIDOGREL 75 MG TAB PO ONE (11:35)
--- NOTE | 2020-02-19 12:16 | CC ---
CARDIAC CATHETERIZATION REPORT DATE OF SERVICE: 02/19/2020 PROCEDURE: 1. Left heart catheterization and coronary angiography. 2. PTCA and stenting of mid LAD with drug-eluting stent. 3. PTCA of distal LAD with a 2.5 caliber NC balloon. PERFORMED BY: Dr. Aamir Mcpherson. Moderate conscious sedation time was 62 minutes. Patient was administered Versed. Oxygen saturation, hemodynamics and EKG were monitored closely. CLINICAL INFORMATION: Mrs. Jeremie Guerrero is a 44-year-old lady with obesity, hypertension, hyperlipidemia, type 2 diabetes mellitus, who came to the hospital with some symptoms of chest discomfort, had a troponin elevation suggestive of non-ST elevation ND. There were precordial T-wave inversion noted. Echo revealed preserved systolic function. She was advised cardiac catheterization given her presentation, EKG changes and troponin elevation. PROCEDURE NOTE: Under strict aseptic precautions and local anesthesia, a 6-Vietnamese introducer was placed in the right radial artery. Using a JL3.5 and a JR4 catheter, I performed coronary angiography and also used the same right Matthew catheter to check LV pressures but did not perform LV gram. Following this, I proceeded to perform intervention of the LAD lesion and following the intervention, the sheath was taken out and TR band applied as per protocol with saturation of the fingers of the right hand of 96%. The patient tolerated the procedure well. CARDIAC CATHETERIZATION FINDINGS: Left ventricular end-diastolic pressure was 8 mmHg without any gradient across the aortic valve. CORONARY ANGIOGRAPHY FINDINGS: RIGHT CORONARY ARTERY: Technically a dominant vessel. No significant disease distally bifurcates into a larger PLV, smaller PDA. PDA has mild diffuse disease but no significant stenosis is noted in the RCA. Distal branches of RCA have mild diffuse disease. The PDA has about a 40% narrowing. LEFT MAIN CORONARY ARTERY: This is a long patent disease-free vessel that bifurcates into LAD and circumflex. No significant disease in the left main. LEFT ANTERIOR DESCENDING CORONARY ARTERY: Good caliber vessel gives off 2 good-sized diagonal branches, a small septal branch and at the origin of the septal branch there is an eccentric 80% narrowing and a tortuosity after which the caliber improves and again in the distal 1/3 of the LAD, there is diffuse disease of anywhere from 60%-90%. The entire distal LAD is diffusely diseased and measures about 2 mm or so. However, the mid lesion at the origin of the septal branch is eccentric 80% and appears to be the culprit lesion with haziness. The 2 diagonal branches are free of significant disease. LEFT POSTERIOR CIRCUMFLEX CORONARY ARTERY: Nondominant vessel, gives off a single large obtuse marginal that divides into 2 branches, minor irregularities, no significant disease. LEFT VENTRICULOGRAM: Left ventriculogram was not performed. FINAL IMPRESSION: This patient has a right dominant system. Normal filling pressures. No gradient across the aortic valve. RCA has no significant disease. PDA has about a 40% diffuse disease. Left main and circumflex are free of significant disease. Mid LAD has 80% eccentric area with haziness. Distal LAD has diffuse disease with multiple areas of narrowing noted. RECOMMENDATIONS: I recommended PCI of LAD and proceeded to perform this in the same setting. PCI PROCEDURE DETAILS: I gave the patient Angiomax bolus and infusion as per protocol and 6 mg of Plavix were given. Initially I tried a JL4. Subsequently a JL3.5 and eventually I used XB LAD 3.5. An XB LAD 3.5 catheter was used with a fairly decent guide support. A run- through wire was used to cross the lesion. A 2.25 caliber NC Trek balloon of 12 mm length was used to pre-dilate the distal lesions as well as the mid LAD lesion. I then used another 2.5 balloon to dilate the distal lesion, which were very hard, heavily calcified and difficult to open. I then advanced a 23 mm long 3.25 caliber Xience stent and deployed this in the mid LAD lesion at the origin of septal branches. Excellent angiographic result was achieved. Patient had chest pain and also precordial T-wave prominence was noted. Excellent angiographic result was achieved. The distal 1/4 of LAD is diffusely diseased and there was only modest improvement, but overall flow had improved a lot. Mid LAD lesion which was 80% which I believe is a culprit lesion as an excellent result. Results were discussed with the patient and family and I expect she will be discharged tomorrow if she remains stable. I explained to the patient that she will have angina because of the distal LAD disease, but right now optimal medical therapy is the best approach because the vessel is diffusely diseased and the probability of a stent remaining open in that area is low and we will therefore pursue medical therapy for the distal LAD lesion, but the mid LAD lesion which was I believe the culprit lesion has now an excellent result. Risk factor modification with weight reduction, diet distribution, exercise and LDL cholesterol of under 70 was explained. Patient hopefully will be discharged tomorrow if she remains stable. MMODL / IJN: [id number] /
[2020-02-19 12:54] LABS: Glucose,Whole Blood 203 mg/dL (75-99)
[2020-02-19] MEDS: LOSARTAN 50 MG TAB PO SCH (13:16)
--- NOTE | 2020-02-19 14:16 | PN ---
PROGRESS NOTE Mrs. Guerrero underwent stenting of mid LAD and also PTCA of distal LAD. She is doing better, postprocedure. Right radial site is clean and dry with a good pulse. Plan is to continue current medication, dual antiplatelet therapy and hopefully discharge her in the next 24-48 hours if she remains stable. MMODL / IJN: [id number] /
[2020-02-19] MEDS ORDERED: ACETAMINOPHEN TAB 325 MG TAB PO PRN (16:04)
[2020-02-19 16:57] LABS: Glucose,Whole Blood 145 mg/dL (75-99)
[2020-02-19 20:26] LABS: Glucose,Whole Blood 176 mg/dL (75-99)
[2020-02-19] MEDS: HEPARIN SOD,PORK IN 0.45% NACL 25,000 UNIT in 0.45% NACL 1 250ML.BAG IV SCH (20:35)
[2020-02-19] MEDS: ATORVASTATIN 80 MG TAB PO SCH (20:54)
[2020-02-19] MEDS: SODIUM CHLORIDE 0.9% 1,000 ML IV SCH (20:54)
[2020-02-19] MEDS ORDERED: METOPROLOL TARTRATE 12.5 MG TAB PO SCH (21:00)
--- NOTE | 2020-02-19 22:07 | P.PN ---
Progress Note - Text Progress Note Date: 02/19/20 Chief Complaint: chest pressure History of presenting complaint: This is a pleasant 44-year-old patient who follows with Dr. Aikne. Chronic stable medical conditions include asthma, diabetes, GERD, hyperlipidemia, enlarged liver being worked up, peripheral neuropathy, mild diabetic retinopathy, migraines, hypothyroid anxiety. Patient is being treated for bronchitis. One week antibiotics and steroid. Finished the last pill this morning. Yesterday she was working from home starting having pressure across the check going to her neck. Appetite and rundown. Slight perspiration. Came into work today. 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 EKG was done. He found some changes and was sent to the ER. Initial troponin was 0.359. IV heparin was started. Admitted with acute non-Q-wave LA. Started IV heparin. Today-underwent cardiac catheterization. Found to have LAD lesion. Stented. is at bedside. Currently no chest pain short of breath. Review of systems: Was done for constitutional, cardiovascular, GI, pulmonary. relevant finding as above Active Medications Acetaminophen (Tylenol Tab) 650 mg PO Q4HR PRN PRN Reason: Fever and/ or Pain Last Admin: 02/19/20 16:07 Dose: 650 mg Documented by: Albuterol Sulfate (Ventolin Nebulized) 2.5 mg INHALATION RT-Q4H PRN PRN Reason: Shortness Of Breath Alprazolam (Xanax) 0.25 mg PO Q6HR PRN PRN Reason: Mild Anxiety Alprazolam (Xanax) 0.5 mg PO Q6HR PRN PRN Reason: Moderate Anxiety Amoxicillin/Clavulanate Potassium (Augmentin 875-125) 1 each PO Q12HR [facility] Last Admin: 02/19/20 20:54 Dose: 1 each Documented by: Aspirin (Aspirin) 81 mg PO DAILY [facility] Atorvastatin Calcium (Lipitor) 80 mg PO HS [facility] Last Admin: 02/19/20 20:54 Dose: 80 mg Documented by: Budesonide/Formoterol Fumarate (Symbicort 160-4.5 Mcg Inhaler) 2 puff INHALATION RT-BID [facility] Last Admin: 02/19/20 18:51 Dose: Not Given Documented by: Clopidogrel Bisulfate (Plavix) 75 mg PO DAILY MIGUEL ÁNGEL Colchicine (Colcrys) 0.6 mg PO DAILY PRN PRN Reason: GOUT Heparin Sodium (Porcine) (Heparin) 0 unit IV Q6HR PRN; Protocol PRN Reason: Low PTT Hydromorphone HCl (Dilaudid) 0.5 mg IVP Q3HR PRN PRN Reason: Pain Heparin Sodium/Sodium Chloride (25,000 unit/ Sodium Chloride) 250 mls @ 10.029 mls/hr IV .Q24H [facility]; Protocol Last Admin: 02/19/20 20:35 Dose: Not Given Documented by: Sodium Chloride (Saline 0.9%) 1,000 mls @ 75 mls/hr IV .[id number] [facility] Stop: 02/20/20 12:00 Last Admin: 02/19/20 20:54 Dose: 75 mls/hr Documented by: Insulin Aspart (Novolog) 0 unit SQ ACHS [facility]; Protocol Last Admin: 02/19/20 20:54 Dose: Not Given Documented by: Levothyroxine Sodium (Synthroid) 100 mcg PO DAILY@0630 [facility] Last Admin: 02/19/20 05:39 Dose: 100 mcg Documented by: Losartan Potassium (Cozaar) 50 mg PO DAILY [facility] Last Admin: 02/19/20 13:16 Dose: 50 mg Documented by: Metformin HCl (Glucophage) 1,000 mg PO AC-BID [facility] Metoprolol Tartrate (Lopressor) 12.5 mg PO HS [facility] Last Admin: 02/19/20 20:54 Dose: 12.5 mg Documented by: Metoprolol Tartrate (Lopressor) 25 mg PO DAILY [facility] Nitroglycerin (Nitrostat) 0.4 mg SUBLINGUAL Q5M PRN PRN Reason: Chest Pain Physical examination: VITAL SIGNS: 98, 76, 16, 125/80, 96% on room air GENERAL: Laying in bed, comfortable. EYES: Pupils equal. Conjunctiva normal. HEENT: External appearance of nose and ears normal, oral cavity grossly normal. NECK: JVD not raised; masses not palpable. HEART: First and second heart sounds are normal; no edema. LUNGS: Respiratory rate normal; clear to auscultation. ABDOMEN: Soft, nontender, liver spleen not palpable, no masses palpable. PSYCH: Alert and oriented x3; mood and affect normal. INVESTIGATIONS, reviewed in the clinical context: Accu-Cheks noted Admission testing Liver ultrasound showing fatty infiltration White count 12.8 hemoglobin 15.5 pressure 4 creatinine 0.63 Troponin I 0.359, 0.451 EKG tracing personally reviewed by me-shows Q waves in inferior leads and septal ST depression and inferolateral leads Chest x-ray film personally reviewed by me-to the right midlung nodule which has been stable since June 2018. Previous testing: LDL 112 triglycerides 272 TSH 4.3 Assessment: -Acute non-Q wave LA, was patient's symptoms started yesterday. Patient's had some intermittent chest pain today. He started and aspirin and beta jelly and IV heparin -Coronary artery disease with stent to LAD -Patient recovering from acute bronchitis -Diabetes mellitus type 2 uncontrolled with hyperglycemia secondary to steroids -GERD -Hyperlipidemia - NAFLD -Hypothyroid -Diabetic peripheral neuropathy and diabetic retinopathy -Chronic gout -Essential hypertension -Morbid obesity BMI 49.7 -IV heparin monitoring Plan: -IV heparin. Medications also include aspirin, Lipitor, Plavix, colchicine, Lopressor Cozaar normal saline. Discussed with the patient has been.
[2020-02-20] MEDS: SODIUM CHLORIDE 0.9% 1,000 ML IV SCH (03:42)
[2020-02-20 03:51] VITALS: TEMP 97.7
[2020-02-20] MEDS: LEVOTHYROXINE 100 MCG TAB PO SCH (06:35)
[2020-02-20 06:45] LABS: Glucose,Whole Blood 162 mg/dL (75-99)
[2020-02-20] MEDS: INSULIN ASPART (NovoLOG) 100 UNIT/ML VIAL SQ SCH (06:48)
[2020-02-20 06:54] LABS: Mean Platelet Volume 6.8; Platelet Count 288 k/uL (150-450)
[2020-02-20] MEDS: AMOXIC-POT CLAV 875-125MG 1 EACH TAB PO SCH (08:31)
[2020-02-20] MEDS: LOSARTAN 50 MG TAB PO SCH (08:32)
[2020-02-20 08:35] VITALS: BP 120/87; PULSE 85
[2020-02-20] MEDS ORDERED: ASPIRIN 81 MG PO SCH (09:00)
[2020-02-20] MEDS ORDERED: CLOPIDOGREL 75 MG TAB PO SCH (09:00)
[2020-02-20] MEDS ORDERED: METOPROLOL TARTRATE 25 MG TAB PO SCH (09:00)
[2020-02-20] MEDS: SYMBICORT 160-4.5 MCG INHALER INHALATION SCH (09:12)
--- NOTE | 2020-02-20 12:52 | CONS ---
CONSULTATION This is a 44-year-old lady who is admitted to hospital with non ST-segment elevation WA and underwent cardiac catheterization and angioplasty of mid LAD. She is doing well and is free of symptoms and eager to go home. EXAM: Comfortable at rest. Vital signs are stable. Chest is clear to auscultation and percussion. Heart exam reveals first and second heart sounds. No gallop. Exam of extremities did not reveal any edema. Her radial access site appears normal. She is currently on aspirin, Lipitor, Plavix and Cozaar. ASSESSMENT: Non ST-segment elevation myocardial infarction status post catheterization and angioplasty of left anterior descending. PLAN: Patient is doing well. She will continue her current medications. She has normal LV systolic function. Follow up with Dr. Mcpherson in the office. MMODL / IJN: [id number] /
--- NOTE | 2020-02-20 20:34 | P.DS ---
Providers Date of admission: 02/19/20 14:49 Expected date of discharge: 02/20/20 Attending physician: Kwame Hall Consults: 02/18/20 13:21 Consult Physician Urgent Consulting Provider: Adrian Barbosa Consult Reason/Comments: NSTEMI Do you want consulting provider notified?: Yes [facility] Course: Chief Complaint: chest pressure History of presenting complaint: This is a pleasant 44-year-old patient who follows with Dr. Aiken. Chronic stable medical conditions include asthma, diabetes, GERD, hyperlipidemia, enlarged liver being worked up, peripheral neuropathy, mild diabetic retinopathy, migraines, hypothyroid anxiety. Patient is being treated for bronchitis. One week antibiotics and steroid. Finished the last pill this morning. Yesterday she was working from home starting having pressure across the check going to her neck. Appetite and rundown. Slight perspiration. Came into work today. 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 EKG was done. He found some changes and was sent to the ER. Initial troponin was 0.359. IV heparin was started. Admitted with acute non-Q-wave PA. Started IV heparin.cardiac catheterization. - LAD lesion.-Stented. Today-feeling well. Up and about. No chest pain or short of breath. Care was discussed with the patient. Questions answered. Consultation: Cardiology associates Physical examination: VITAL SIGNS: 97.7, 85, 16, 120/87, 97% on room air GENERAL: Sitting up in a chair, comfortable. EYES: Pupils equal. Conjunctiva normal. HEENT: External appearance of nose and ears normal, oral cavity grossly normal. NECK: JVD not raised; masses not palpable. HEART: First and second heart sounds are normal; no edema. LUNGS: Respiratory rate normal; clear to auscultation. ABDOMEN: Soft, nontender, liver spleen not palpable, no masses palpable. PSYCH: Alert and oriented x3; mood and affect normal. INVESTIGATIONS, reviewed in the clinical context: Accu-Cheks noted Admission testing Liver ultrasound showing fatty infiltration White count 12.8 hemoglobin 15.5 pressure 4 creatinine 0.63 Troponin I 0.359, 0.451 EKG tracing personally reviewed by me-shows Q waves in inferior leads and septal ST depression and inferolateral leads Chest x-ray film personally reviewed by me-to the right midlung nodule which has been stable since June 2018. Previous testing: LDL 112 triglycerides 272 TSH 4.3 Assessment: -Acute non-Q wave PA, -Coronary artery disease with stent to LAD -Patient recovering from acute bronchitis -Diabetes mellitus type 2 uncontrolled with hyperglycemia secondary to steroids -GERD -Hyperlipidemia - NAFLD -Hypothyroid -Diabetic peripheral neuropathy and diabetic retinopathy -Chronic gout -Essential hypertension -Morbid obesity BMI 49.7 -IV heparin monitoring Disposition: Home Patient Condition at Discharge: Stable Plan - Discharge Summary Discharge Rx Participant: No New Discharge Prescriptions: New Aspirin 81 mg PO DAILY chew Losartan [Cozaar] 50 mg PO DAILY #30 tab Atorvastatin [Lipitor] 80 mg PO HS #30 tab Nitroglycerin Sl Tabs [Nitrostat] 0.4 mg SUBLINGUAL Q5M PRN #25 tab PRN Reason: Chest Pain Clopidogrel [Plavix] 75 mg PO DAILY #30 tab Metoprolol Tartrate [Lopressor] 25 mg PO BID #60 tab Continue metFORMIN HCL 1,000 mg PO BID Levothyroxine Sodium [Synthroid] 100 mcg PO DAILY Ergocalciferol (Vitamin D2) [Vitamin D2] 50,000 unit PO WESA Budesonide-Formot 160-4.5 Mcg [Symbicort 160-4.5 Mcg Inhaler] 2 puff INHALATION RT-BID Albuterol Nebulized [Ventolin Nebulized] 2.5 mg INHALATION RT-Q4H PRN PRN Reason: Shortness Of Breath ALPRAZolam [Xanax] 0.25 mg PO TID PRN PRN Reason: Anxiety Dulaglutide [Trulicity] 1.5 mg SQ WE Colchicine [Colcrys] 0.6 mg PO DAILY PRN PRN Reason: GOUT Discontinued Furosemide [Lasix] 10 mg PO DAILY PRN PRN Reason: Edema Atorvastatin [Lipitor] 10 mg PO HS predniSONE See Taper PO DAILY Amoxic-Pot Clav 875-125Mg [Augmentin 875-125] 1 tab PO Q12HR Discharge Medication List metFORMIN HCL 1,000 mg PO BID 10/05/15 [History] Ergocalciferol (Vitamin D2) [Vitamin D2] 50,000 unit PO WESA 09/11/17 [History] Levothyroxine Sodium [Synthroid] 100 mcg PO DAILY 09/11/17 [History] ALPRAZolam [Xanax] 0.25 mg PO TID PRN 02/18/20 [History] Albuterol Nebulized [Ventolin Nebulized] 2.5 mg INHALATION RT-Q4H PRN 02/18/20 [History] Budesonide-Formot 160-4.5 Mcg [Symbicort 160-4.5 Mcg Inhaler] 2 puff INHALATION RT-BID 02/18/20 [History] Colchicine [Colcrys] 0.6 mg PO DAILY PRN 02/18/20 [History] Dulaglutide [Trulicity] 1.5 mg SQ WE 02/18/20 [History] Aspirin 81 mg PO DAILY chew 02/20/20 [Rx] Atorvastatin [Lipitor] 80 mg PO HS #30 tab 02/20/20 [Rx] Clopidogrel [Plavix] 75 mg PO DAILY #30 tab 02/20/20 [Rx] Losartan [Cozaar] 50 mg PO DAILY #30 tab 02/20/20 [Rx] Metoprolol Tartrate [Lopressor] 25 mg PO BID #60 tab 02/20/20 [Rx] Nitroglycerin Sl Tabs [Nitrostat] 0.4 mg SUBLINGUAL Q5M PRN #25 tab 02/20/20 [Rx] Follow up Appointment(s)/Referral(s): Mary Mcpherson MD [STAFF PHYSICIAN] - 02/23/20 9:15 am Eleno Aiken MD [Primary Care Provider] - 1-2 days Patient Instructions/Handouts: *[facility] - After Heart Catheterization - French Instructor Instructions Discharge Disposition: HOME SELF-CARE
[2020-02-22] MEDS ORDERED: metFORMIN 500 MG TAB PO SCH (07:30)
== END 2020-02-20 12:44 | disposition home or self-care (01) | DRG 247 ==
LOC: EC 10:05 → 3SCARD 13:24 → OBSVTOIN 02-19 14:49
PROVIDERS: ADMIT Hospitalist; ATTEND Hospitalist
PROC: B2111ZZ Fluoroscopy of Multiple Coronary Arteries using Low Osmolar Contrast (ICD-10-PCS; 2020-02-19)
PROC: 027034Z Dilation of Coronary Artery, One Artery with Drug-eluting Intraluminal Device, Percutaneous Approach (ICD-10-PCS; principal; 2020-02-19 07:30)
PROC: 4A023N7 Measurement of Cardiac Sampling and Pressure, Left Heart, Percutaneous Approach (ICD-10-PCS; 2020-02-19 07:30)
DX: I21.4 Non-ST elevation (NSTEMI) myocardial infarction (principal); Z68.42 Body mass index [BMI] 45.0-49.9, adult; E11.319 Type 2 diabetes mellitus with unspecified diabetic retinopathy without macular edema; E11.42 Type 2 diabetes mellitus with diabetic polyneuropathy; K76.0 Fatty (change of) liver, not elsewhere classified; E66.01 Morbid (severe) obesity due to excess calories; E11.65 Type 2 diabetes mellitus with hyperglycemia; E78.5 Hyperlipidemia, unspecified; K21.9 Gastro-esophageal reflux disease without esophagitis; J45.909 Unspecified asthma, uncomplicated; G43.909 Migraine, unspecified, not intractable, without status migrainosus; F41.9 Anxiety disorder, unspecified; E03.9 Hypothyroidism, unspecified; M19.90 Unspecified osteoarthritis, unspecified site; R00.1 Bradycardia, unspecified; M1A.9XX0 Chronic gout, unspecified, without tophus (tophi); I10 Essential (primary) hypertension; I25.10 Atherosclerotic heart disease of native coronary artery without angina pectoris; J20.9 Acute bronchitis, unspecified; R91.1 Solitary pulmonary nodule; T38.0X5A Adverse effect of glucocorticoids and synthetic analogues, initial encounter; Z79.84 Long term (current) use of oral hypoglycemic drugs; Z79.899 Other long term (current) drug therapy; Z79.890 Hormone replacement therapy; Z79.51 Long term (current) use of inhaled steroids; Z87.19 Personal history of other diseases of the digestive system; Z91.14 Patient's other noncompliance with medication regimen; Z90.49 Acquired absence of other specified parts of digestive tract; Z98.890 Other specified postprocedural states; Z87.01 Personal history of pneumonia (recurrent); Z91.011 Allergy to milk products; Z88.8 Allergy status to other drugs, medicaments and biological substances; Z91.018 Allergy to other foods; Z82.49 Family history of ischemic heart disease and other diseases of the circulatory system; Z82.69 Family history of other diseases of the musculoskeletal system and connective tissue; Z80.9 Family history of malignant neoplasm, unspecified
CPT/HCPCS: 36415; 71046; 71275; 76705; 80053; 80061; 83690; 83735; 84484; 85025; 85049; 85610; 85730; 93005; 93306; 93458; 94640; 94760; 96374; 99291

== ENCOUNTER → 2020-06-21 | Outpatient (CLI) | payer BC ==
--- NOTE | 2020-06-23 10:08 | MM ---
Reason for exam: screening (asymptomatic). Last mammogram was performed 1 year and 3 months ago. History: Patient is nulliparous. Family history of breast cancer in 2 grandmothers. Took hormonal contraceptives for 2 years beginning at age 19. Physical Findings: A clinical breast exam by your physician is recommended on an annual basis and results should be correlated with mammographic findings. MG Screening Mammo w CAD Bilateral CC and MLO view(s) were taken. Prior study comparison: April 02, 2019, bilateral MG screening mammo w CAD. March 31, 2018, bilateral MG screening mammo w CAD. There are scattered fibroglandular densities. No significant changes when compared with prior studies. ASSESSMENT: Benign, BI-RAD 2 RECOMMENDATION: Routine screening mammogram of both breasts in 1 year.
== END | disposition home or self-care (01) ==
LOC: RADMAMWWP 11:20
PROVIDERS: ATTEND Family Medicine
DX: Z12.31 Encounter for screening mammogram for malignant neoplasm of breast (principal)
CPT/HCPCS: 77067

== ENCOUNTER 2020-07-04 11:51 | Inpatient (IN) | payer BC ==
[2020-07-04] MEDS ORDERED: ASPIRIN 81 MG PO STA (12:15)
[2020-07-04] MEDS ORDERED: NITROGLYCERIN SL TABS 0.4 MG TAB SUBLINGUAL STA ×3 (12:15)
--- NOTE | 2020-07-04 12:18 | ED ---
General Adult HPI - General Chief complaint: Chest Pain Stated complaint: Chest Pain Time Seen by Provider: 07/04/20 12:09 Source: patient, RN notes reviewed Mode of arrival: wheelchair Limitations: no limitations - History of Present Illness Initial comments: Patient is a pleasant 45-year-old female presenting to the emergency Department with complaints of chest discomfort. Onset of symptoms was history. Discomfort feels a pressure. There is some radiation towards the neck. There is some associated dyspnea and sweating, mild. Patient does have some nausea however this is chronic and unchanged. Patient does have gastroparesis and does routin jonna vomited. Patient did take 2 nitro at her work prior to arrival with mild improvement of symptoms. Patient states she did have similar symptoms back in February so she with a heart attack. Discomfort is currently rated 6 or 7/10. No leg swelling or pain. - Related Data Home Medications Medication Instructions Recorded Confirmed metFORMIN HCL 1,000 mg PO BID 10/05/15 07/04/20 Ergocalciferol (Vitamin D2) 50,000 unit PO MO 09/11/17 07/04/20 [Vitamin D2] Levothyroxine Sodium [Synthroid] 100 mcg PO DAILY 09/11/17 07/04/20 Albuterol Nebulized [Ventolin 2.5 mg INHALATION RT-Q4H PRN 02/18/20 07/04/20 Nebulized] Budesonide-Formot 160-4.5 Mcg 2 puff INHALATION RT-BID 02/18/20 07/04/20 [Symbicort 160-4.5 Mcg Inhaler] Dulaglutide [Trulicity] 1.5 mg SQ MO 02/18/20 07/04/20 Albuterol Sulfate [Ventolin HFA] 1 - 2 puff INHALATION RT-Q6H PRN 07/04/20 07/04/20 Cyclobenzaprine [Flexeril] 5 mg PO BID PRN 07/04/20 07/04/20 Losartan [Cozaar] 25 mg PO HS 07/04/20 07/04/20 Metoprolol Succinate [Toprol XL] 25 mg PO DAILY 07/04/20 07/04/20 Naproxen Sodium 550 mg PO BID PRN 07/04/20 07/04/20 Pantoprazole [Protonix] 40 mg PO DAILY 07/04/20 07/04/20 Ranolazine [Ranolazine ER] 500 mg PO BID 07/04/20 07/04/20 hydroCHLOROthiazide [Hydrodiuril] 25 mg PO DAILY 07/04/20 07/04/20 Previous Rx's Medication Instructions Recorded Atorvastatin [Lipitor] 80 mg PO HS #30 tab 02/20/20 Clopidogrel [Plavix] 75 mg PO DAILY #30 tab 02/20/20 Nitroglycerin Sl Tabs [Nitrostat] 0.4 mg SUBLINGUAL Q5M PRN #25 tab 02/20/20 Allergies Allergy/AdvReac Type Severity Reaction Status Date / Time wheat Allergy Unknown Nausea & Verified 07/04/20 12:56 Vomiting drospirenone Allergy Rash/Hives Verified 07/04/20 12:56 [From Danita (28)] ethinyl estradiol Allergy Rash/Hives Verified 07/04/20 12:56 [From Danita (28)] Milk Containing Products Allergy Nausea & Verified 07/04/20 12:56 [Dairy] Vomiting Review of Systems ROS Statement: Those systems with pertinent positive or pertinent negative responses have been documented in the HPI. ROS Other: All systems not noted in ROS Statement are negative. Constitutional: Denies: fever Eyes: Denies: eye pain ENT: Denies: ear pain Respiratory: Denies: cough Cardiovascular: Reports: chest pain Endocrine: Denies: fatigue Gastrointestinal: Reports: as per HPI, nausea Genitourinary: Denies: dysuria Musculoskeletal: Denies: back pain Skin: Denies: rash Neurological: Denies: weakness Past Medical History Past Medical History: Asthma, Diabetes Mellitus, GERD/Reflux, Hyperlipidemia, Liver Disease, Myocardial Infarction ([place]), Osteoarthritis (OA), Pneumonia, Thyroid Disorder Additional Past Medical History / Comment(s): NIDDM type II, neuropathy bilateral feet-mild, bilateral diabetic retinopathy, htn-occasionall found high but when placed on antihypertensives she goes too low, bronchitis, enlarged liver, migraines, gout R foot, UTIs, hypothyroid, R knee pain/OA, history of frequent vomiting-was daily but states since starting allergy injections vomiting has decreased to about once a week. History of Any Multi-Drug Resistant Organisms: None Reported Past Surgical History: Cholecystectomy, Heart Catheterization With Stent Additional Past Surgical History / Comment(s): EGD. colonoscopy, deviated septum/sinus surgery Additional Past Anesthesia/Blood Transfusion Reaction / Comment(s): hard to wake up after anesthesia. felt sore for days after general anesthesia. Pts sister has difficulty waking up also. Past Psychological History: Anxiety Smoking Status: Never smoker Past Alcohol Use History: Occasional Past Drug Use History: Marijuana - Past Family History Father Family Medical History: Cancer Additional Family Medical History / Comment(s): colon Mother Family Medical History: Congestive Heart Failure (CHF), Fibromyalgia Additional Family Medical History / Comment(s): Mental illnesses General Exam Limitations: no limitations General appearance: alert, in no apparent distress Head exam: Present: normocephalic Eye exam: Present: normal appearance Neck exam: Present: normal inspection Respiratory exam: Present: normal lung sounds bilaterally. Absent: chest wall tenderness Cardiovascular Exam: Present: regular rate, normal rhythm, normal heart sounds Expanded Peripheral pulses: 2+: Radial (R), Radial (L), Dorsalis Pedis (R), Dorsalis Pedis (L) GI/Abdominal exam: Present: soft. Absent: tenderness Extremities exam: Present: normal inspection. Absent: pedal edema, calf tenderness Neurological exam: Present: alert Psychiatric exam: Present: normal affect, normal mood Skin exam: Present: normal color Course Vital Signs 07/04/20 07/04/20 11:59 12:37 Temperature 98.7 F Pulse Rate 82 86 Respiratory 18 18 Rate Blood Pressure 130/83 125/82 O2 Sat by Pulse 99 99 Oximetry EKG Findings - EKG Comments: EKG Findings:: Normal sinus rhythm at 71. ME 128. QRS 84. QT 384. QTC 417. Normal axis. Normal QRS. No acute ST change. Medical Decision Making - Medical Decision Making Patient reevaluated and improved with nitroglycerin. Patient updated on results and plan. Covering physician for Dr. Hall, who admits for Dr. Aiken has been paged - Lab Data Result diagrams: 07/04/20 12:17 07/04/20 12:17 Lab Results 07/04/20 07/04/20 07/04/20 Range/Units 12:17 12:17 12:17 WBC 8.7 (3.8-10.6) k/uL RBC 4.65 (3.80-5.40) m/uL Hgb 14.2 (11.4-16.0) gm/dL Hct 40.5 (34.0-46.0) % MCV 87.1 (80.0-100.0) fL MCH 30.6 (25.0-35.0) pg MCHC 35.2 (31.0-37.0) g/dL RDW 12.0 (11.5-15.5) % Plt Count 322 (150-450) k/uL MPV 6.5 Neutrophils % 64 % Lymphocytes % 25 % Monocytes % 6 % Eosinophils % 3 % Basophils % 1 % Neutrophils # 5.5 (1.3-7.7) k/uL Lymphocytes # 2.1 (1.0-4.8) k/uL Monocytes # 0.6 (0-1.0) k/uL Eosinophils # 0.3 (0-0.7) k/uL Basophils # 0.1 (0-0.2) k/uL PT 10.2 (9.0-12.0) sec INR 0.9 (<1.2) APTT 22.8 (22.0-30.0) sec D-Dimer 0.18 (<0.60) mg/L FEU Sodium 138 (137-145) mmol/L Potassium 4.1 (3.5-5.1) mmol/L Chloride 103 (98-107) mmol/L Carbon Dioxide 25 (22-30) mmol/L Anion Gap 10 mmol/L BUN 13 (7-17) mg/dL Creatinine 0.62 (0.52-1.04) mg/dL Est GFR (CKD-EPI)AfAm >90 (>60 ml/min/1.73 sqM) Est GFR (CKD-EPI)NonAf >90 (>60 ml/min/1.73 sqM) Glucose 156 H (74-99) mg/dL Calcium 9.5 (8.4-10.2) mg/dL Magnesium 1.2 L (1.6-2.3) mg/dL Total Bilirubin 0.7 (0.2-1.3) mg/dL AST 20 (14-36) U/L ALT 17 (4-34) U/L Alkaline Phosphatase 64 (38-126) U/L Troponin I (0.000-0.034) ng/mL NT-Pro-B Natriuret Pep pg/mL Total Protein 7.4 (6.3-8.2) g/dL Albumin 4.5 (3.5-5.0) g/dL 07/04/20 07/04/20 Range/Units 12:17 12:17 WBC (3.8-10.6) k/uL RBC (3.80-5.40) m/uL Hgb (11.4-16.0) gm/dL Hct (34.0-46.0) % MCV (80.0-100.0) fL MCH (25.0-35.0) pg MCHC (31.0-37.0) g/dL RDW (11.5-15.5) % Plt Count (150-450) k/uL MPV Neutrophils % % Lymphocytes % % Monocytes % % Eosinophils % % Basophils % % Neutrophils # (1.3-7.7) k/uL Lymphocytes # (1.0-4.8) k/uL Monocytes # (0-1.0) k/uL Eosinophils # (0-0.7) k/uL Basophils # (0-0.2) k/uL PT (9.0-12.0) sec INR (<1.2) APTT (22.0-30.0) sec D-Dimer (<0.60) mg/L FEU Sodium (137-145) mmol/L Potassium (3.5-5.1) mmol/L Chloride (98-107) mmol/L Carbon Dioxide (22-30) mmol/L Anion Gap mmol/L BUN (7-17) mg/dL Creatinine (0.52-1.04) mg/dL Est GFR (CKD-EPI)AfAm (>60 ml/min/1.73 sqM) Est GFR (CKD-EPI)NonAf (>60 ml/min/1.73 sqM) Glucose (74-99) mg/dL Calcium (8.4-10.2) mg/dL Magnesium (1.6-2.3) mg/dL Total Bilirubin (0.2-1.3) mg/dL AST (14-36) U/L ALT (4-34) U/L Alkaline Phosphatase (38-126) U/L Troponin I <0.012 (0.000-0.034) ng/mL NT-Pro-B Natriuret Pep 105 pg/mL Total Protein (6.3-8.2) g/dL Albumin (3.5-5.0) g/dL - Radiology Data Radiology results: image reviewed (Chest x-ray shows no acute process. Lung nodule redemonstrated.) Disposition Clinical Impression: Chest pain Disposition: ADMITTED IP TO THIS HOSP Is patient prescribed a controlled substance at d/c from ED?: No Referrals: Eleno Aiken MD [Primary Care Provider] - 1-2 days Decision Time: 13:37
[2020-07-04 12:27] LABS: Basophils # (A) 0.1 k/uL (0-0.2); Basophils % (A) 1 %; Eosinophils # (A) 0.3 k/uL (0-0.7); Eosinophils % (A) 3 %; HCT 40.5 % (34.0-46.0); HGB 14.2 gm/dL (11.4-16.0); Lymphocytes # (A) 2.1 k/uL (1.0-4.8); Lymphocytes % (A) 25 %; MCH 30.6 pg (25.0-35.0); MCHC 35.2 g/dL (31.0-37.0); MCV 87.1 fL (80.0-100.0); Mean Platelet Volume 6.5; Monocytes # (A) 0.6 k/uL (0-1.0); Monocytes % (A) 6 %; Neutrophils # (A) 5.5 k/uL (1.3-7.7); Neutrophils % (A) 64 %; Platelet Count 322 k/uL (150-450); RBC 4.65 m/uL (3.80-5.40); WBC 8.7 k/uL (3.8-10.6)
[2020-07-04 12:37] LABS: ALT 17 U/L (4-34); AST 20 U/L (14-36); African American GFR (CKD) >90 (>60 ml/min/1.73 sqM); Albumin 4.5 g/dL (3.5-5.0); Alkaline Phosphatase 64 U/L (38-126); Anion Gap 10 mmol/L; Blood Urea Nitrogen 13 mg/dL (7-17); Calcium 9.5 mg/dL (8.4-10.2); Carbon Dioxide 25 mmol/L (22-30); Chloride 103 mmol/L (98-107); Glucose 156 mg/dL (74-99); Magnesium 1.2 mg/dL (1.6-2.3); Non-African American GFR(CKD) >90 (>60 ml/min/1.73 sqM); Potassium 4.1 mmol/L (3.5-5.1); Sodium 138 mmol/L (137-145); Total Bilirubin 0.7 mg/dL (0.2-1.3); Total Protein 7.4 g/dL (6.3-8.2)
--- NOTE | 2020-07-04 12:37 | XR ---
EXAMINATION TYPE: XR chest 2V DATE OF EXAM: 07/04/2020 COMPARISON: Chest x-ray and CTA chest February 18, 2020 HISTORY: Chest pain. TECHNIQUE: Frontal and lateral views of the chest are obtained. FINDINGS: Low lung volumes redemonstrated. There is no suspicious new focal air space opacity, pleura l effusion, or pneumothorax seen. The cardiac silhouette size is stable and upper limits of normal. Overlying Cholecystectomy clips. The osseous structures are intact. Redemonstration of right mid niall g nodule centrally. IMPRESSION: No acute cardiopulmonary process. No significant change from prior studies.
[2020-07-04 12:46] LABS: D-Dimer 0.18 mg/L FEU (<0.60); INR 0.9 (<1.2); Partial Thromboplastin Time 22.8 sec (22.0-30.0); Prothrombin Time 10.2 sec (9.0-12.0)
[2020-07-04] MEDS ORDERED: MAGNESIUM SULFATE-D5W PMX 1 GM in DEXTROSE/WATER 1 100ML.BAG IVPB ONE (13:25)
[2020-07-04] MEDS ORDERED: MAGNESIUM OXIDE 400 MG TAB PO STA (13:25)
[2020-07-04] MEDS ORDERED: NITROGLYCERIN SL TABS 0.4 MG TAB SUBLINGUAL PRN (13:29)
[2020-07-04 16:47] LABS: Glucose,Whole Blood 120 mg/dL (75-99)
[2020-07-04] MEDS: NITROGLYCERIN OINT 1 INCH/GM PACKET TOPICAL SCH ×2 (18:10→23:25)
--- NOTE | 2020-07-04 18:13 | P.HPIM ---
History of Present Illness This is a pleasant 45 years old female with multiple medical problems as below, Including asthma, diabetes mellitus, GERD, hyperlipidemia, osteoarthritis, hypothyroidism, diabetic neuropathy, diabetic retinopathy, enlarged liver, m igraines. She is patient of Dr. Aiken. She follows up with ALETHA Hinton for her gastroparesis. And Dr. Mcpherson her plastic extrusion operator who placed a stent for her on 02/2020. Presents with chest pain that started last night after she cleaned her house. She rates the pain at 7/10 and currently 4/10, located in the middle of the chest radiating to the back of her head felt like heaviness and sharp associated with shortness of breath but no coughing or phlegm. Also associated with vomiting for several months several times per day and she was diagnosed with gastroparesis. Her bowel movement is normal She denies smoking, occasional alcohol and sometimes uses marijuana. I offered test but she declined. Risks and benefits are explained Vitas looks stable. Labs including CBC, BMP, liver enzymes were unremarkable, first troponin is negative less than 0.0 to d-dimer is negative at 0.018 Chest x-ray: No acute process EKG: Showed normal sinus rhythm at [address]-T changes An emergency room she was started on aspirin Review of Systems CONSTITUTIONAL: No fever, no malaise, no fatigue. HEENT: No recent visual problems or hearing problems. Denied any sore throat. CARDIOVASCULAR: No orthopnea, PND, no palpitations, no syncope. PULMONARY: No shortness of breath, no cough, no hemoptysis. GASTROINTESTINAL: No diarrhea, no nausea, no vomiting, no abdominal pain. Normoactive bowel sounds. NEUROLOGICAL: No headaches, no weakness, no numbness. HEMATOLOGICAL: Denies any bleeding or petechiae. GENITOURINARY: Denies any burning micturition, frequency, or urgency. MUSCULOSKELETAL/RHEUMATOLOGICAL: Denies any joint pain, swelling, or any muscle pain. ENDOCRINE: Denies any polyuria or polydipsia. Past Medical History Past Medical History: Asthma, Diabetes Mellitus, GERD/Reflux, Hyperlipidemia, Li jose guadalupe Disease, Myocardial Infarction ([place]), Osteoarthritis (OA), Pneumonia, Thyroid Disorder Additional Past Medical History / Comment(s): NIDDM type II, neuropathy bilateral feet-mild, bilateral diabetic retinopathy, htn-occasionall found high but when placed on antihypertensives she goes too low, bronchitis, enlarged liver, migraines, gout R foot, UTIs, hypothyroid, R knee pain/OA, history of frequent vomiting-was daily but states since starting allergy injections vomitin g has decreased to about once a week. History of Any Multi-Drug Resistant Organisms: None Reported Past Surgical History: Cholecystectomy, Heart Catheterization With Stent Additional Past Surgical History / Comment(s): EGD. colonoscopy, deviated septum/sinus surgery Additional Past Anesthesia/Blood Transfusion Reaction / Comment(s): hard to wake up after anesthesia. felt sore for days after general anesthesia. Pts sister has difficulty waking up also. Past Psychological History: Anxiety Smoking Status: Never smoker Past Alcohol Use History: Occasional Past Drug Use History: Marijuana - Past Family History Father Family Medical History: Cancer Additional Family Medical History / Comment(s): colon Mother Family Medical History: Congestive Heart Failure (CHF), Fibromyalgia Additional Family Medical History / Comment(s): Mental illnesses Medications and Allergies Home Medications Medication Instructions Recorded Confirmed Type metFORMIN HCL 1,000 mg PO BID 10/05/15 07/04/20 History Ergocalciferol (Vitamin D2) 50,000 unit PO MO 09/11/17 07/04/20 History [Vitamin D2] Levothyroxine Sodium [Synthroid] 100 mcg PO DAILY 09/11/17 07/04/20 History Albuterol Nebulized [Ventolin 2.5 mg INHALATION RT-Q4H PRN 02/18/20 07/04/20 History Nebulized] Budesonide-Formot 160-4.5 Mcg 2 puff INHALATION RT-BID 02/18/20 07/04/20 History [Symbicort 160-4.5 Mcg Inhaler] Dulaglutide [Trulicity] 1.5 mg SQ MO 02/18/20 07/04/20 History Atorvastatin [Lipitor] 80 mg PO HS #30 tab 02/20/20 07/04/20 Rx Clopidogrel [Plavix] 75 mg PO DAILY #30 tab 02/20/20 07/04/20 Rx Nitroglycerin Sl Tabs [Nitrostat] 0.4 mg SUBLINGUAL Q5M PRN #25 tab 02/20/20 07/04/20 Rx Albuterol Sulfate [Ventolin HFA] 1 - 2 puff INHALATION RT-Q6H PRN 07/04/20 07/04/20 History Cyclobenzaprine [Flexeril] 5 mg PO BID PRN 07/04/20 07/04/20 History Losartan [Cozaar] 25 mg PO HS 07/04/20 07/04/20 History Metoprolol Succinate [Toprol XL] 25 mg PO DAILY 07/04/20 07/04/20 History Naproxen Sodium 550 mg PO BID PRN 07/04/20 07/04/20 History Pantoprazole [Protonix] 40 mg PO DAILY 07/04/20 07/04/20 History Ranolazine [Ranolazine ER] 500 mg PO BID 07/04/20 07/04/20 History hydroCHLOROthiazide [Hydrodiuril] 25 mg PO DAILY 07/04/20 07/04/20 History Allergies Allergy/AdvReac Type Severity Reaction Status Date / Time wheat Allergy Unknown Nausea & Verified 07/04/20 12:56 Vomiting drospirenone Allergy Rash/Hives Verified 07/04/20 12:56 [From Danita (28)] ethinyl estradiol Allergy Rash/Hives Verified 07/04/20 12:56 [From Danita (28)] Milk Containing Products Allergy Nausea & Verified 07/04/20 12:56 [Dairy] Vomiting Physical Exam Vitals: Vital Signs Temp Pulse Resp BP Pulse Ox 07/04/20 13:56 66 18 111/82 100 07/04/20 12:37 86 18 125/82 99 07/04/20 11:59 98.7 F 82 18 130/83 99 Intake and Output 07/03/20 07/04/20 07/04/20 22:59 06:59 14:59 Other: Weight 132.449 kg GENERAL: The patient is alert and oriented x3, not in any acute distress. Well developed, well nourished. HEENT: Pupils are round and equally reacting to light. EOMI. No scleral icterus. No conjunctival pallor. Normocephalic, atraumatic. No pharyngeal erythema. No thyromegaly. CARDIOVASCULAR: S1 and S2 present. No murmurs, rubs, or gallops. PULMONARY: Chest is clear to auscultation, no wheezing or crackles. ABDOMEN: Soft, nontender, nondistended, normoactive bowel sounds. No palpable organomegaly. MUSCULOSKELETAL: No joint swelling or deformity. EXTREMITIES: No cyanosis, clubbing, or pedal edema. NEUROLOGICAL: Gross neurological examination did not reveal any focal deficits. SKIN: No rashes. No petechiae Results CBC & Chem 7: 07/04/20 12:17 07/04/20 12:17 Labs: Abnormal Lab Results - Last 24 Hours (Table) 07/04/20 Range/Units 12:17 Glucose 156 H (74-99) mg/dL Magnesium 1.2 L (1.6-2.3) mg/dL Assessment and Plan Assessment: Chest pain, rule out cardiac causes, d-dimer is negative at 0.018 Type 2 diabetes mellitus Hypertension Hyperlipidemia Hypothyroidism Diabetic retinopathy Osteoarthritis History of GERD History of migraines History of coronary artery disease status post stent placement anxiety Plan: This is a pleasant 45 years old female who presents with chest pain. We'll instruct troponins, cardiology consult. Continue with aspirin Labs and medication were reviewed.. Continue same treatment. Continue with symptomatic treatment. Resume home medication. Monitor lytes and vitals. DVT and GI prophylaxis. Further recommendations depends on the clinical course of the patient DVT prophylaxis: Subcutaneous heparin GI Prophylaxis: Pepcid Prognosis is guarded
[2020-07-04 20:35] LABS: Glucose,Whole Blood 168 mg/dL (75-99)
[2020-07-04] MEDS ORDERED: ALPRAZolam 0.25 MG TAB PO PRN (23:12)
[2020-07-04] MEDS ORDERED: LOSARTAN 25 MG TAB PO SCH (23:15)
[2020-07-04] MEDS ORDERED: ATORVASTATIN 80 MG TAB PO SCH (23:15)
[2020-07-04] MEDS: metFORMIN 500 MG TAB PO SCH (23:24)
[2020-07-04] MEDS: RANOLAZINE 500 MG TAB.ER.12H PO SCH (23:24)
[2020-07-05 05:57] LABS: Glucose,Whole Blood 165 mg/dL (75-99)
[2020-07-05] MEDS: INSULIN ASPART (NovoLOG) 100 UNIT/ML VIAL SQ SCH ×2 (06:16→12:24)
[2020-07-05] MEDS: NITROGLYCERIN OINT 1 INCH/GM PACKET TOPICAL SCH (06:22)
[2020-07-05 08:04] VITALS: RESP 18; TEMP 97.4
[2020-07-05 08:07] LABS: Magnesium 1.4 mg/dL (1.6-2.3)
[2020-07-05] MEDS ORDERED: LEVOTHYROXINE 100 MCG TAB PO SCH (09:00)
[2020-07-05] MEDS ORDERED: ASPIRIN 325 MG TAB PO SCH (09:00)
[2020-07-05] MEDS ORDERED: DOBUTamine DRIP for NUC MED 500 MG in DEXTROSE/WATER 1 250ML.BAG IV PRN (10:00)
[2020-07-05] MEDS ORDERED: Magnesium Replacement Protocol 1 EACH MISC MISCELLANE PRN (10:35)
--- NOTE | 2020-07-05 10:37 | P.PN ---
Subjective This is a pleasant 45 years old female with multiple medical problems as below, Including asthma, diabetes mellitus, GERD, hyperlipidemia, osteoarthritis, hypothyroidism, diabetic neuropathy, diabetic retinopathy, enlarged liver, migraines. She is patient of Dr. Aiken. She follows up with ALETHA Hinton for her gastroparesis. And Dr. Mcpherson her direct care staffer who placed a stent for her on 02/2020. Presents with chest pain that started last night after she cleaned her house. She rates the pain at 7/10 and currently 4/10, located in the middle of the chest radiating to the back of her head felt like heaviness and sharp associated with shortness of breath but no coughing or phlegm. Also associated with vomiting for several months several times per day and she was diagnosed with gastroparesis. Her bowel movement is normal She denies smoking, occasional alcohol and sometimes uses marijuana. I offered test but she declined. Risks and benefits are explained Vitas looks stable. Labs including CBC, BMP, liver enzymes were unremarkable, first troponin is negative less than 0.0 to d-dimer is negative at 0.018 Chest x-ray: No acute process EKG: Showed normal sinus rhythm at [address]-T changes An emergency room she was started on aspirin 07/05/2020 Patient today with no chest pain, sitting in chair comfortable not in distress, blood pressure low normal at 106/74, rest of Vitas looks stable. Magnesium is low at 1.4 which is been replaced, sugar stable 165-120. Patient is made nothing by mouth this measurement pending cardiology evaluation, her metformin was held. Cartilage team on the case and currently she kept on aspirin 81 mg daily Review of Systems CONSTITUTIONAL: No fever, no malaise, no fatigue. HEENT: No recent visual problems or hearing problems. Denied any sore throat. CARDIOVASCULAR: No orthopnea, PND, no palpitations, no syncope. PULMONARY: No shortness of breath, no cough, no hemoptysis. GASTROINTESTINAL: No diarrhea, no nausea, no vomiting, no abdominal pain. Normoactive bowel sounds. NEUROLOGICAL: No headaches, no weakness, no numbness. Active Medications Generic Name Dose Route Start Last Admin Trade Name Freq PRN Reason Stop Dose Admin Alprazolam 0.25 mg 07/04/20 23:12 Alprazolam 0.25 Mg Tab PO Q8HR PRN Anxiety Aspirin 81 mg 07/06/20 09:00 Aspirin 81 Mg PO DAILY [facility] Atorvastatin Calcium 80 mg 07/04/20 23:15 07/04/20 23:24 Atorvastatin 80 Mg Tab PO 80 mg HS MIGUEL ÁNGEL Administration Insulin Aspart 0 unit 07/05/20 07:30 07/05/20 06:16 Insulin Aspart (Novolog) 100 Unit/Ml Vial SQ Not Given ACHS [facility] Protocol Levothyroxine Sodium 100 mcg 07/05/20 09:00 07/05/20 08:04 Levothyroxine 100 Mcg Tab PO 100 mcg DAILY@0630 MIGUEL ÁNGEL Administration Losartan Potassium 25 mg 07/04/20 23:15 07/04/20 23:24 Losartan 25 Mg Tab PO 25 mg HS MIGUEL ÁNGEL Administration Metformin HCl 1,000 mg 07/04/20 23:15 07/04/20 23:24 Metformin 500 Mg Tab PO 1,000 mg BID MIGUEL ÁNGEL Administration Miscellaneous Information 1 each 07/05/20 10:35 Magnesium Replacement Protocol 1 Each Misc MISCELLANE DAILY PRN Per Protocol Protocol Nitroglycerin 0.4 mg 07/04/20 13:29 Nitroglycerin Sl Tabs 0.4 Mg Tab SUBLINGUAL Q5M PRN Chest Pain Ranolazine 500 mg 07/04/20 23:15 07/04/20 23:24 Ranolazine 500 Mg Tab.Er.12h PO 500 mg BID MIGUEL ÁNGEL Administration Objective - Vital Signs Vital signs: Vital Signs Temp 97.4 F L 07/05/20 08:01 Pulse 74 07/05/20 08:12 Resp 18 07/05/20 08:12 BP 106/74 07/05/20 08:01 Pulse Ox 98 07/05/20 08:01 Intake & Output 07/04/20 07/05/20 07/05/20 18:59 06:59 18:59 Intake Total 720 480 Output Total 1 Balance 719 480 Weight 132.449 kg 129.4 kg Intake: Oral 720 480 Output: Urine 1 Other: Voiding Method Toilet # Voids 4 - Labs CBC & Chem 7: 07/04/20 12:17 07/04/20 12:17 Labs: Abnormal Lab Results - Last 24 Hours (Table) 07/04/20 07/04/20 07/04/20 Range/Units 12:17 16:46 20:32 Glucose 156 H (74-99) mg/dL POC Glucose (mg/dL) 120 H 168 H (75-99) mg/dL Magnesium 1.2 L (1.6-2.3) mg/dL Triglycerides (<150) mg/dL 07/05/20 07/05/20 Range/Units 05:54 06:58 Glucose (74-99) mg/dL POC Glucose (mg/dL) 165 H (75-99) mg/dL Magnesium 1.4 L (1.6-2.3) mg/dL Triglycerides 205 H (<150) mg/dL Assessment and Plan Assessment: Chest pain, rule out cardiac causes, d-dimer is negative at 0.018 Type 2 diabetes mellitus Hypertension Hyperlipidemia Hypothyroidism Diabetic retinopathy Osteoarthritis History of GERD History of migraines History of coronary artery disease status post stent placement anxiety Plan: This is a pleasant 45 years old female who presents with chest pain. Follow-up recommendation by cardiology consult. Continue with aspirin Labs and medication were reviewed.. Continue same treatment. Continue with symptomatic treatment. Resume home medication. Monitor lytes and vitals. DVT and GI prophylaxis. Further recommendations depends on the clinical course of the patient DVT prophylaxis: Subcutaneous heparin GI Prophylaxis: Pepcid Prognosis is guarded
[2020-07-05] MEDS ORDERED: ATROPINE SULFATE 0.1 MG/ML 10ML SYRINGE ONE (11:54)
[2020-07-05] MEDS ORDERED: METOPROLOL TARTRATE 5 MG/5 ML VIAL IVP ONE (11:54)
[2020-07-05 12:22] LABS: Glucose,Whole Blood 163 mg/dL (75-99)
[2020-07-05] MEDS ORDERED: CLOPIDOGREL 75 MG TAB PO SCH (12:30)
[2020-07-05 12:32] VITALS: BP 104/69; PULSE 89
[2020-07-05] MEDS: MAGNESIUM SULFATE-D5W PMX 1 GM in DEXTROSE/WATER 1 100ML.BAG IVPB SCH ×3 (12:40→15:33)
[2020-07-05] MEDS: RANOLAZINE 500 MG TAB.ER.12H PO SCH (12:40)
[2020-07-05] MEDS: metFORMIN 500 MG TAB PO SCH (12:40)
--- NOTE | 2020-07-05 13:19 | P.CRDCN ---
History of Present Illness Consult date: 07/05/20 History of present illness: CHIEF COMPLAINT: Chest pain HISTORY OF PRESENT ILLNESS: This is a 45-year-old female with a past medical history significant for asthma, diabetes mellitus, GERD, hyperlipidemia, and coronary artery disease with previous stent to the LAD. Patient follows in the office with Dr. Mcpherson. We have been asked to see the patient in consultation for chest pain. Patient states on Saturday she was doing housework when she began having some chest pain. She states the pain almost went away so she did not th ink much of it. She reports going to work on Saturday. 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 She reports she took some intercourse and which took away the sharp pain but she continued to have a sharp pressure. She was directed to come to the emergency room for further evaluation. She states the pain is not worse with deep breath. She states the pain is worse with movement and when laying on her side. She also has pain upon palpation. Patient underwent cardiac cath in February 2020 with PTCA of the distal LAD and stent to the mid LAD. Echocardiogram completed at that time revealed ejection fraction 60-65%. Patient states that she recently went for a second opinion by a Dr. Horne out of [place] and underwent a stress test which she will states was negative. She states the cardiology was therefore recommended cardiac rehab. DIAGNOSTICS: EKG reveals sinus mechanism with no signs of acute ischemia when compared to previous EKG Chest xray negative for acute process Laboratory data: WBC 8.7. Hemoglobin 14.2. Platelet count 322. D-dimer 0.18. Sodium 138. Potassium 4.1. BUN 13. Creatinine 0.62. Troponin negative 3 Current home cardiac medications include hydrocortisone is a 25 mg daily, Toprol-XL 25 mg daily, losartan 25 mg daily, Plavix 75 mg daily, and Lipitor 80 mg daily REVIEW OF SYSTEMS: At the time of my exam: CONSTITUTIONAL: Denies fever or chills. HEENT: Denies blurred vision, vision changes, or eye pain. Denies hemoptysis CARDIOVASCULAR: Reports chest pressure. Denies orthopnea, PND or palpitations RESPIRATORY: No shortness of breath. GASTROINTESTINAL: Denies abdominal pain. Denies nausea or vomiting. HEMATOLOGIC: Denies bleeding disorders. GENITOURINARY: Denies any blood in urine. SKIN: Denies pruitis. Denies rash. PHYSICAL EXAM: VITAL SIGNS: Reviewed. GENERAL: Well-developed in no acute distress. HEENT: Head is normocephalic. Pupils are equal, round. Sclerae anicteric. Mucous membranes of the mouth are moist. Neck supple. No JVD or thyromegaly LUNGS: Respirations even and unlabored. Lungs essentially clear to auscultation bilaterally. HEART: Regular rate and rhythm. S1 and S2 heard. Chest tenderness with palpation. ABDOMEN: Soft. Nondistended. Nontender. EXTREMITIES: Normal range of motion. No clubbing or cyanosis. Peripheral pulses intact. No lower extremity edema NEUROLOGIC: Awake and alert. Oriented x 3. ASSESSMENT: Chest pain, troponins negative 3 Coronary artery disease with previous stent to the mid LAD, February 2020 Asthma Hyperlipidemia GERD Diabetes mellitus PLAN: Resume home cardiac medications No need to repeat echocardiogram as this was performed in February 2020 Patient will undergo dobutamine stress echo today. If negative, she may be discharged home today and follow up outpatient with Dr. Mcpherson Nurse practitioner note has been reviewed by physician. Signing provider agrees with the documented findings, assessment, and plan of care. Past Medical History Past Medical History: Asthma, Diabetes Mellitus, GERD/Reflux, Hyperlipidemia, Liver Disease, Myocardial Infarction ([place]), Osteoarthritis (OA), Pneumonia, Thyroid Disorder Additional Past Medical History / Comment(s): NIDDM type II, neuropathy bilateral feet-mild, bilateral diabetic retinopathy, htn-occasionall found high but when placed on antihypertensives she goes too low, bronchitis, enlarged liver, migraines, gout R foot, UTIs, hypothyroid, R knee pain/OA, history of frequent vomiting-was daily but states since starting allergy injections vomiting has decreased to about once a week. Last Myocardial Infarction Date:: 02/19/2020 History of Any Multi-Drug Resistant Organisms: None Reported Past Surgical History: Cholecystectomy, Heart Catheterization With Stent Additional Past Surgical History / Comment(s): EGD. colonoscopy, deviated septum/sinus surgery Additional Past Anesthesia/Blood Transfusion Reaction / Comment(s): hard to wake up after anesthesia. felt sore for days after general anesthesia. Pts sister has difficulty waking up also. Date of Last Stent Placement:: 02/19/2020 Past Psychological History: Anxiety Smoking Status: Never smoker Past Alcohol Use History: Occasional Past Drug Use History: Marijuana - Past Family History Father Family Medical History: Cancer Additional Family Medical History / Comment(s): colon Mother Family Medical History: Congestive Heart Failure (CHF), Fibromyalgia Additional Family Medical History / Comment(s): Mental illnesses Medications and Allergies Home Medications Medication Instructions Recorded Confirmed Type metFORMIN HCL 1,000 mg PO BID 10/05/15 07/04/20 History Ergocalciferol (Vitamin D2) 50,000 unit PO MO 09/11/17 07/04/20 History [Vitamin D2] Levothyroxine Sodium [Synthroid] 100 mcg PO DAILY 09/11/17 07/04/20 History Albuterol Nebulized [Ventolin 2.5 mg INHALATION RT-Q4H PRN 02/18/20 07/04/20 History Nebulized] Budesonide-Formot 160-4.5 Mcg 2 puff INHALATION RT-BID 02/18/20 07/04/20 History [Symbicort 160-4.5 Mcg Inhaler] Dulaglutide [Trulicity] 1.5 mg SQ MO 02/18/20 07/04/20 History Atorvastatin [Lipitor] 80 mg PO HS #30 tab 02/20/20 07/04/20 Rx Clopidogrel [Plavix] 75 mg PO DAILY #30 tab 02/20/20 07/04/20 Rx Nitroglycerin Sl Tabs [Nitrostat] 0.4 mg SUBLINGUAL Q5M PRN #25 tab 02/20/20 07/04/20 Rx ALPRAZolam [Xanax] 0.25 mg PO Q8HR PRN 07/04/20 07/04/20 History Albuterol Sulfate [Ventolin HFA] 1 - 2 puff INHALATION RT-Q6H PRN 07/04/20 07/04/20 History Cyclobenzaprine [Flexeril] 5 mg PO BID PRN 07/04/20 07/04/20 History Losartan [Cozaar] 25 mg PO HS 07/04/20 07/04/20 History Metoprolol Succinate [Toprol XL] 25 mg PO DAILY 07/04/20 07/04/20 History Naproxen Sodium 550 mg PO BID PRN 07/04/20 07/04/20 History Pantoprazole [Protonix] 40 mg PO DAILY 07/04/20 07/04/20 History Ranolazine [Ranolazine ER] 500 mg PO BID 07/04/20 07/04/20 History hydroCHLOROthiazide [Hydrodiuril] 25 mg PO DAILY 07/04/20 07/04/20 History Allergies Allergy/AdvReac Type Severity Reaction Status Date / Time wheat Allergy Unknown Nausea & Verified 07/04/20 12:56 Vomiting drospirenone Allergy Rash/Hives Verified 07/04/20 12:56 [From Danita (28)] ethinyl estradiol Allergy Rash/Hives Verified 07/04/20 12:56 [From Danita (28)] Milk Containing Products Allergy Nausea & Verified 07/04/20 12:56 [Dairy] Vomiting Physical Exam Vitals: Vital Signs Temp Pulse Pulse Resp BP BP Pulse Ox 07/05/20 12:32 89 18 104/69 98 07/05/20 08:12 74 18 07/05/20 08:01 97.4 F L 74 18 106/74 98 07/05/20 03:47 98.0 F 71 16 88/60 98 07/05/20 01:49 73 16 07/04/20 23:09 97.4 F L 73 16 113/71 96 07/04/20 20:25 98.1 F 70 16 110/68 96 07/04/20 20:00 70 16 07/04/20 15:33 68 17 119/80 100 07/04/20 13:56 66 18 111/82 100 Intake and Output 07/04/20 07/05/20 07/05/20 22:59 06:59 14:59 Intake Total 1200 Output Total 1 Balance 1199 Intake: Oral 1200 Output: Urine 1 Other: Voiding Method Toilet Toilet # Voids 4 Weight 129.4 kg 129.4 kg Results 07/04/20 12:17 07/04/20 12:17 Cardiac Enzymes 07/04/20 07/04/20 Range/Units 15:10 18:27 Troponin I <0.012 <0.012 (0.000-0.034) ng/mL Lipids 07/05/20 Range/Units 06:58 Triglycerides 205 H (<150) mg/dL Cholesterol 138 (<200) mg/dL HDL Cholesterol 50 (40-60) mg/dL Current Medications Generic Name Dose Route Start Last Admin Trade Name Freq PRN Reason Stop Dose Admin Alprazolam 0.25 mg 07/04/20 23:12 Alprazolam 0.25 Mg Tab PO Q8HR PRN Anxiety Aspirin 81 mg 07/06/20 09:00 Aspirin 81 Mg PO DAILY [facility] Atorvastatin Calcium 80 mg 07/04/20 23:15 07/04/20 23:24 Atorvastatin 80 Mg Tab PO 80 mg HS MIGUEL ÁNGEL Administration Clopidogrel Bisulfate 75 mg 07/05/20 12:30 07/05/20 12:45 Clopidogrel 75 Mg Tab PO 75 mg DAILY MIGUEL ÁNGEL Administration Magnesium Sulfate/Dextrose 1 100 mls @ 100 mls/hr 07/05/20 13:00 07/05/20 12:40 gm/ IV Solution IVPB 07/05/20 15:59 100 mls/hr Q1H MIGUEL ÁNGEL Administration Insulin Aspart 0 unit 07/05/20 07:30 07/05/20 12:24 Insulin Aspart (Novolog) 100 Unit/Ml Vial SQ Not Given ACHS [facility] Protocol Levothyroxine Sodium 100 mcg 07/05/20 09:00 07/05/20 08:04 Levothyroxine 100 Mcg Tab PO 100 mcg DAILY@0630 MIGUEL ÁNGEL Administration Losartan Potassium 25 mg 07/04/20 23:15 07/04/20 23:24 Losartan 25 Mg Tab PO 25 mg HS MIGUEL ÁNGEL Administration Metformin HCl 1,000 mg 07/04/20 23:15 07/05/20 12:40 Metformin 500 Mg Tab PO 1,000 mg BID MIGUEL ÁNGEL Administration Miscellaneous Information 1 each 07/05/20 10:35 Magnesium Replacement Protocol 1 Each Misc MISCELLANE DAILY PRN Per Protocol Protocol Nitroglycerin 0.4 mg 07/04/20 13:29 Nitroglycerin Sl Tabs 0.4 Mg Tab SUBLINGUAL Q5M PRN Chest Pain Ranolazine 500 mg 07/04/20 23:15 07/05/20 12:40 Ranolazine 500 Mg Tab.Er.12h PO 500 mg BID MIGUEL ÁNGEL Administration Intake and Output 07/04/20 07/05/20 07/05/20 22:59 06:59 14:59 Intake Total 1200 Output Total 1 Balance 1199 Intake: Oral 1200 Output: Urine 1 Other: Voiding Method Toilet Toilet # Voids 4 Weight 129.4 kg 129.4 kg Patient Weight 07/06/20 06:59 Weight 129.4 kg 07/04/20 12:17 07/04/20 12:17
[2020-07-05 14:20] LABS: Hemoglobin A1C 7.1 % (4.0-6.0)
--- NOTE | 2020-07-05 14:35 | ECHOS ---
STRESS ECHOCARDIOGRAM DOBUTAMINE STRESS ECHO LUMASON: Vial INDICATIONS: Chest pain. MEDICATIONS: BASELINE HEART RATE: 64 BASELINE BLOOD PRESSURE: 104/63 MAXIMUM HEART RATE: 155 MAXIMUM BLOOD PRESSURE: 140/72 85% MPHR: 148 100% MPHR: 174 METS: MAXIMUM STAGE REACHED: TOTAL EXERCISE TIME: CLINICAL INFORMATION: Baseline rhythm is sinus mechanism, rate of 64, normal axis and intervals, normal electrocardiogram. Baseline blood pressure 104/63 mmHg. Patient received infusion of dobutamine per protocol in addition to 0.5 mg of IV atropine reaching peak rate 155 beats per minute which is equal to 91% maximum predicted heart rate. Peak blood pressure 140/72 mmHg. Electrocardiograph monitoring revealed no evidence of diagnostic ischemic ST deviation. Baseline echocardiogram revealed normal wall motion. At peak infusion, there was normal wall motion augmentation with no hypokinesis or dyskinesis. CONCLUSION: 1. Normal electrocardiographic response to dobutamine infusion. 2. Normal stress echocardiogram with no evidence of stress-induced ischemia. MMODL / IJN: [id number] /
[2020-07-06] MEDS ORDERED: ASPIRIN 81 MG PO SCH (09:00)
== END 2020-07-05 16:37 | disposition home or self-care (01) | DRG 313 ==
LOC: EC 11:51 → 3SCARD 13:29
PROVIDERS: ADMIT Hospitalist; ATTEND Hospitalist
DX: R07.9 Chest pain, unspecified (principal); E03.9 Hypothyroidism, unspecified; E11.319 Type 2 diabetes mellitus with unspecified diabetic retinopathy without macular edema; E11.43 Type 2 diabetes mellitus with diabetic autonomic (poly)neuropathy; E78.5 Hyperlipidemia, unspecified; F41.9 Anxiety disorder, unspecified; G43.909 Migraine, unspecified, not intractable, without status migrainosus; I10 Essential (primary) hypertension; I25.2 Old myocardial infarction; I25.10 Atherosclerotic heart disease of native coronary artery without angina pectoris; J45.909 Unspecified asthma, uncomplicated; K21.9 Gastro-esophageal reflux disease without esophagitis; K31.84 Gastroparesis; Z79.899 Other long term (current) drug therapy; M19.90 Unspecified osteoarthritis, unspecified site; Z79.02 Long term (current) use of antithrombotics/antiplatelets; Z79.51 Long term (current) use of inhaled steroids; Z79.82 Long term (current) use of aspirin; Z79.890 Hormone replacement therapy; Z82.49 Family history of ischemic heart disease and other diseases of the circulatory system; Z95.5 Presence of coronary angioplasty implant and graft; Z87.01 Personal history of pneumonia (recurrent); Z87.440 Personal history of urinary (tract) infections; K76.9 Liver disease, unspecified; M10.9 Gout, unspecified; M17.11 Unilateral primary osteoarthritis, right knee; Z90.49 Acquired absence of other specified parts of digestive tract; Z81.8 Family history of other mental and behavioral disorders; Z80.0 Family history of malignant neoplasm of digestive organs; Z82.69 Family history of other diseases of the musculoskeletal system and connective tissue; Z82.3 Family history of stroke; Z88.8 Allergy status to other drugs, medicaments and biological substances; Z91.011 Allergy to milk products
CPT/HCPCS: 36415; 71046; 80053; 80061; 83036; 83735; 83880; 84484; 85025; 85379; 85610; 85730; 93005; 93351; 96365; 99285

== ENCOUNTER → 2021-07-03 | Outpatient (CLI) | payer BC ==
--- NOTE | 2021-07-03 16:49 | CT ---
EXAMINATION TYPE: CT abdomen pelvis wo con DATE OF EXAM: 07/03/2021 COMPARISON: None HISTORY: right flank pain CT DLP: 2492.1 mGycm Automated exposure control for dose reduction was used. Images obtained from the diaphragm to the floor of the pelvis with no contrast. Lung bases are clear of consolidation. There is mild subsegmental atelectasis right lung base. There is no pleural effusion. Heart size is normal. There is no pericardial effusion. Liver spleen and stomach pancreas appear intact. The bile ducts are not dilated. There are clips from cholecystectomy. There is no adrenal mass. Kidneys have normal size. There is no hydronephrosis. Ureters are not dilat ed. There is no retroperitoneal adenopathy. Bladder distends smoothly. There is no inguinal hernia. T here is no free fluid in the pelvis. Uterus is anteverted. There is no evidence of a pelvic mass. Lumbar vertebrae are normal alignment. There is degenerative disc space narrowing at L3-4 and L5-S1 w ith spur formation. I see no bony destructive process. There is no mesenteric edema. There is no ascites or free air. There is no sign of a bowel obstructio n. Appendix is not seen. IMPRESSION: No evidence of renal stone or obstruction. Appendix not seen. No acute abnormality within the abdomen and pelvis.
== END | disposition home or self-care (01) ==
LOC: RADCTMAIN 16:07
PROVIDERS: ATTEND Family Medicine
DX: N23 Unspecified renal colic (principal)
CPT/HCPCS: 74176

== ENCOUNTER → 2022-04-12 | Outpatient (CLI) | payer OTHER ==
--- NOTE | 2022-04-13 07:43 | MM ---
Reason for Exam: Screening (asymptomatic). Last mammogram was performed 1 year(s) and 9 month(s) ago. Patient History: Menarche at age 10. Patient has no children. Hormonal Contraceptives, starting at age 19 for 2 years. Maternal grandmother had breast cancer under age 50. Maternal grandmother had breast cancer at or over age 50. Risk Values: Faviola 5 year model risk: 1.1%. NCI Lifetime model risk: 11.1%. Prior Study Comparison: 03/31/2018 Bilateral Screening Mammogram, [facility]. 04/02/2019 Bilateral Screening Mammogram, [facility]. 06/21/2020 Bilateral Screening Mammogram, [facility]. Tissue Density: There are scattered fibroglandular densities. Findings: Analyzed By CAD. There is no suspicious group of microcalcifications or new suspicious mass in either breast. Overall Assessment: Benign, BI-RAD 2 Management: Screening Mammogram of both breasts in 1 year. A clinical breast exam by your physician is recommended on an annual basis and results should be correlated with mammographic findings. Electronically signed and approved by: Fredy Oliver M.D. Radiologis
== END | disposition home or self-care (01) ==
LOC: RADMAMWWP 07:44
PROVIDERS: ATTEND Family Medicine
DX: Z12.31 Encounter for screening mammogram for malignant neoplasm of breast (principal)
CPT/HCPCS: 77063; 77067

== ENCOUNTER 2022-06-03 03:09 | Observation (INO) | payer OTHER ==
[2022-06-03 03:35] LABS: Glucose,Whole Blood 88 mg/dL (70-110)
--- NOTE | 2022-06-03 03:38 | ED ---
Chest Pain HPI - General Chief Complaint: Chest Pain Stated Complaint: Chest pain, SOB, low BS Time Seen by Provider: 06/03/22 03:14 Source: family Mode of arrival: wheelchair Limitations: no limitations - Related Data Home Medications Medication Instructions Recorded Confirmed metFORMIN HCL [Glucophage] 1,000 mg PO BID 10/05/15 06/03/22 Ergocalciferol (Vitamin D2) 50,000 unit PO [place] 09/11/17 06/03/22 [Vitamin D2] Budesonide-Formot 160-4.5 Mcg 2 puff INHALATION RT-BID PRN 02/18/20 06/03/22 [Symbicort 160-4.5 Mcg Inhaler] ALPRAZolam [Xanax] 0.25 mg PO Q6H PRN 07/04/20 06/03/22 Albuterol Sulfate [Ventolin HFA] 1 - 2 puff INHALATION RT-Q6H PRN 07/04/20 06/03/22 Cyclobenzaprine [Flexeril] 5 mg PO BID PRN 07/04/20 06/03/22 hydroCHLOROthiazide [Hydrodiuril] 25 mg PO DAILY 07/04/20 06/03/22 DULoxetine HCL [Cymbalta] 30 mg PO HS 06/03/22 06/03/22 Dicyclomine [Bentyl] 10 - 20 mg PO TID PRN 06/03/22 06/03/22 Insulin Glargine,Hum.rec.anlog 10 units SQ HS 06/03/22 06/03/22 [Lantus Solostar Pen] Levothyroxine Sodium [Unithroid] 125 mcg PO DAILY 06/03/22 06/03/22 Metoprolol Succinate [Metoprolol 25 mg PO DAILY 06/03/22 06/03/22 Succinate ER] Ondansetron Odt [Zofran ODT] 4 mg PO Q6H PRN 06/03/22 06/03/22 Pioglitazone [Actos] 15 mg PO DAILY 06/03/22 06/03/22 sitaGLIPtin [Januvia] 100 mg PO DAILY 06/03/22 06/03/22 Previous Rx's Medication Instructions Recorded Atorvastatin [Lipitor] 80 mg PO HS #30 tab 02/20/20 Nitroglycerin Sl Tabs [Nitrostat] 0.4 mg SUBLINGUAL Q5M PRN #25 tab 02/20/20 Magnesium Oxide [Mag-Ox] 400 mg PO DAILY 5 Days #5 tablet 07/05/20 Allergies Allergy/AdvReac Type Severity Reaction Status Date / Time wheat Allergy Unknown Nausea & Verified 06/03/22 12:33 Vomiting drospirenone Allergy Rash/Hives Verified 06/03/22 12:33 [From Danita (28)] ethinyl estradiol Allergy Rash/Hives Verified 06/03/22 12:33 [From Danita (28)] Milk Containing Products Allergy Nausea & Verified 06/03/22 12:33 [Dairy] Vomiting Review of Systems ROS Statement: Those systems with pertinent positive or pertinent negative responses have been documented in the HPI. ROS Other: All systems not noted in ROS Statement are negative. EKG Findings - EKG Comments: EKG Findings:: EKG is sinus 75 NH 142 QRS 93 QTC is 425 Past Medical History Past Medical History: Asthma, Diabetes Mellitus, GERD/Reflux, Hyperlipidemia, Liver Disease, Myocardial Infarction ([place]), Osteoarthritis ([place]), Pneumonia, Thyroid Disorder Additional Past Medical History / Comment(s): NIDDM type II, neuropathy bilateral feet-mild, bilateral diabetic retinopathy, htn-occasionall found high but when placed on antihypertensives she goes too low, bronchitis, enlarged liver, migraines, gout R foot, UTIs, hypothyroid, R knee pain/OA, history of frequent vomiting-was daily but states since starting allergy injections vomiting has decreased to about once a week. Last Myocardial Infarction Date:: 02/19/2020 History of Any Multi-Drug Resistant Organisms: None Reported Past Surgical History: Cholecystectomy, Heart Catheterization With Stent Additional Past Surgical History / Comment(s): EGD. colonoscopy, deviated septum/sinus surgery Additional Past Anesthesia/Blood Transfusion Reaction / Comment(s): hard to wake up after anesthesia. felt sore for days after general anesthesia. Pts sister has difficulty waking up also. Date of Last Stent Placement:: 02/19/2020 Past Psychological History: Anxiety Smoking Status: Never smoker Past Alcohol Use History: Occasional Past Drug Use History: Marijuana - Past Family History Father Family Medical History: Cancer Additional Family Medical History / Comment(s): colon Mother Family Medical History: Congestive Heart Failure (CHF), Fibromyalgia Additional Family Medical History / Comment(s): Mental illnesses General Exam Limitations: no limitations Course Vital Signs 06/03/22 06/03/22 06/03/22 03:16 03:38 04:42 Temperature 98.7 F Pulse Rate 86 72 75 Respiratory 20 24 20 Rate Blood Pressure 150/87 97/66 100/54 O2 Sat by Pulse 100 98 96 Oximetry 06/03/22 06/03/22 06/03/22 05:23 06:32 08:00 Temperature Pulse Rate 76 66 76 Respiratory 18 18 20 Rate Blood Pressure 108/61 121/75 123/73 O2 Sat by Pulse 96 97 98 Oximetry 06/03/22 06/03/22 09:47 10:46 Temperature Pulse Rate 64 75 Respiratory 20 16 Rate Blood Pressure 109/59 145/65 O2 Sat by Pulse 98 98 Oximetry - Reevaluation(s) Reevaluation #1: 06/03/22 medical record is reviewed Patient symptoms are improved here in the ER Patient informed of results and questions answered Disposition Clinical Impression: Atypical chest pain, NSTEMI (non-ST elevated myocardial infarction), Chest pain Disposition: ADMITTED IP TO THIS [facility] Condition: Stable Is patient prescribed a controlled substance at d/c from ED?: No Time of Disposition: 05:30
[2022-06-03 03:48] LABS: Basophils # (A) 0.2 k/uL (0-0.2); Basophils % (A) 1 %; Eosinophils # (A) 0.3 k/uL (0-0.7); Eosinophils % (A) 2 %; HCT 41.9 % (34.0-46.0); HGB 14.5 gm/dL (11.4-16.0); Lymphocytes # (A) 6.4 k/uL (1.0-4.8); Lymphocytes % (A) 43 %; MCHC 34.5 g/dL (31.0-37.0); MCV 86.9 fL (80.0-100.0); Mean Platelet Volume 7.6; Monocytes % (A) 7 %; Neutrophils # (A) 6.5 k/uL (1.3-7.7); Neutrophils % (A) 44 %; Platelet Count 474 k/uL (150-450); RBC 4.82 m/uL (3.80-5.40); RDW 12.8 % (11.5-15.5); WBC 14.7 k/uL (3.8-10.6)
[2022-06-03 03:58] LABS: INR 0.9 (<1.2)
[2022-06-03 03:59] LABS: Partial Thromboplastin Time 22.3 sec (22.0-30.0); Prothrombin Time 9.6 sec (9.0-12.0)
[2022-06-03 04:01] LABS: ALT 17 U/L (4-34); AST 18 U/L (14-36); African American GFR (CKD) >90 (>60 ml/min/1.73 sqM); Albumin 4.4 g/dL (3.5-5.0); Alkaline Phosphatase 106 U/L (38-126); Anion Gap 13 mmol/L; Blood Urea Nitrogen 17 mg/dL (7-17); Calcium 9.8 mg/dL (8.4-10.2); Carbon Dioxide 25 mmol/L (22-30); Chloride 102 mmol/L (98-107); Glucose 95 mg/dL (74-99); Magnesium 1.6 mg/dL (1.6-2.3); Non-African American GFR(CKD) >90 (>60 ml/min/1.73 sqM); Potassium 3.6 mmol/L (3.5-5.1); Sodium 140 mmol/L (137-145); Total Bilirubin 0.4 mg/dL (0.2-1.3)
--- NOTE | 2022-06-03 04:05 | XR ---
EXAMINATION TYPE: XR chest 2V DATE OF EXAM: 06/03/2022 COMPARISON: 07/04/2020 HISTORY: Chest pain TECHNIQUE: 2 views FINDINGS: Heart is normal. There is 1.5 cm nodular density in the right upper lobe. Diaphragm is norm al. Bony thorax is intact. IMPRESSION: Right upper lobe nodule is also present on the CT scan of 02/18/2020 and not changed in siz e. This could be a granuloma. Normal heart.
[2022-06-03] MEDS ORDERED: ASPIRIN 81 MG PO STA (05:24)
[2022-06-03] MEDS ORDERED: HEPARIN SODIUM 1,000 UN/ML (10ML VL) IV ONE (05:24)
[2022-06-03] MEDS ORDERED: MORPHINE SULFATE 4 MG/ML SYRINGE IV PRN (05:24)
[2022-06-03] MEDS ORDERED: NITROGLYCERIN SL TABS 0.4 MG TAB SUBLINGUAL PRN ×2 (05:24→17:44)
[2022-06-03] MEDS: HEPARIN SOD,PORK IN 0.45% NACL 25,000 UNIT in 0.45% NACL 1 250ML.BAG IV SCH (05:43)
[2022-06-03] MEDS ORDERED: ACETAMINOPHEN TAB 325 MG TAB PO STA (05:47)
[2022-06-03] MEDS: ATORVASTATIN 80 MG TAB PO SCH (07:57)
[2022-06-03 08:57] LABS: Mean Platelet Volume 7.8; Platelet Count 272 k/uL (150-450)
[2022-06-03 10:58] LABS: Appearance,Urine Clear (Clear); Bilirubin,Urine Negative (Negative); Blood,Urine Negative (Negative); Color,Urine Yellow; Glucose,Urine (UA) Negative (Negative); Ketones,Urine Negative (Negative); Leukocyte Esterase,Urine Negative (Negative); Nitrite,Urine Negative (Negative); Protein,Urine Trace (Negative); Specific Gravity,Urine 1.028 (1.001-1.035); Urobilinogen,Urine <2.0 mg/dL (<2.0)
--- NOTE | 2022-06-03 11:52 | P.CRDCN ---
History of Present Illness Consult date: 06/03/22 Requesting physician: Garcia Motta Jr Reason for Consult (text): "known" Chief complaint: blurred vision, lightheadedness, chest pressure History of present illness: This a pleasant 47-year-old female patient who follows with Dr. Moreno in the office. She has a history of hypertension, hyperlipidemia, obesity, type 2 diabetes mellitus, non-ST elevation NV in February 2020 at which time she underwent cardiac catheterization which revealed no significant disease in the RCA, PDA with about 40% diffuse disease, left main and circumflex free of significant disease and an 80% lesion in the mid LAD with distal LAD have diffuse disease with multiple areas of narrowing. At that time she underwent PCI of the LAD. Most recent stress test was done in June 2020 which showed no evidence of ischemia. Echocardiogram with Doppler study in February 2020 showed normal LV systolic function. She presented to the emergency department with complaints of chest pressure. Apparently yesterday she been having some issues with lightheadedness and nausea and her blood pressure was running around in the 90s systolic. She woke up about 3 AM as she was alerted that her blood sugar was low but was feeling quite lightheaded, diaphoretic, nauseous with blurred vision and also developed some chest pressure. Her symptoms reminded her what she experienced in February 2020 she decided to come to the emergency room. EKG on admission showed sinus mechanism with nonspecific ST-T wave abnormalities. Troponins have been negative 2. On examination she is resting comfortably in the emergency department. She has no current complaints of chest discomfort. Activity has been somewhat limited since she had an arthroscopic knee surgery in December but she denies any exertional symptoms. She's had no syncope. Other than yesterday and last night she's had no complaints of dizziness or lightheadedness. She's had no orthopnea or PND. She denies any lower extremity edema. Past Medical History Past Medical History: Asthma, Diabetes Mellitus, GERD/Reflux, Hyperlipidemia, Liver Disease, Myocardial Infarction (NV), Osteoarthritis (OA), Pneumonia, Thyroid Disorder Additional Past Medical History / Comment(s): NIDDM type II, neuropathy bilateral feet-mild, bilateral diabetic retinopathy, htn-occasionall found high but when placed on antihypertensives she goes too low, bronchitis, enlarged liver, migraines, gout R foot, UTIs, hypothyroid, R knee pain/OA, history of frequent vomiting-was daily but states since starting allergy injections vomiting has decreased to about once a week. Last Myocardial Infarction Date:: 02/19/2020 History of Any Multi-Drug Resistant Organisms: None Reported Past Surgical History: Cholecystectomy, Heart Catheterization With Stent Additional Past Surgical History / Comment(s): EGD. colonoscopy, deviated septum/sinus surgery Additional Past Anesthesia/Blood Transfusion Reaction / Comment(s): hard to wake up after anesthesia. felt sore for days after general anesthesia. Pts sister has difficulty waking up also. Date of Last Stent Placement:: 02/19/2020 Past Psychological History: Anxiety Smoking Status: Never smoker Past Alcohol Use History: Occasional Past Drug Use History: Marijuana - Past Family History Father Family Medical History: Cancer Additional Family Medical History / Comment(s): colon Mother Family Medical History: Congestive Heart Failure (CHF), Fibromyalgia Additional Family Medical History / Comment(s): Mental illnesses Medications and Allergies Home Medications Medication Instructions Recorded Confirmed Type metFORMIN HCL [Glucophage] 1,000 mg PO BID 10/05/15 07/04/20 History Ergocalciferol (Vitamin D2) 50,000 unit PO MO 09/11/17 07/04/20 History [Vitamin D2] Levothyroxine Sodium [Synthroid] 100 mcg PO DAILY 09/11/17 07/04/20 History Albuterol Nebulized [Ventolin 2.5 mg INHALATION RT-Q4H PRN 02/18/20 07/04/20 History Nebulized] Budesonide-Formot 160-4.5 Mcg 2 puff INHALATION RT-BID 02/18/20 07/04/20 History [Symbicort 160-4.5 Mcg Inhaler] Dulaglutide [Trulicity] 1.5 mg SQ MO 02/18/20 07/04/20 History Atorvastatin [Lipitor] 80 mg PO HS #30 tab 02/20/20 07/04/20 Rx Clopidogrel [Plavix] 75 mg PO DAILY #30 tab 02/20/20 07/04/20 Rx Nitroglycerin Sl Tabs [Nitrostat] 0.4 mg SUBLINGUAL Q5M PRN #25 tab 02/20/20 07/04/20 Rx ALPRAZolam [Xanax] 0.25 mg PO Q8HR PRN 07/04/20 07/04/20 History Albuterol Sulfate [Ventolin HFA] 1 - 2 puff INHALATION RT-Q6H PRN 07/04/20 07/04/20 History Cyclobenzaprine [Flexeril] 5 mg PO BID PRN 07/04/20 07/04/20 History Losartan [Cozaar] 25 mg PO HS 07/04/20 07/04/20 History Naproxen Sodium 550 mg PO BID PRN 07/04/20 07/04/20 History Pantoprazole [Protonix] 40 mg PO DAILY 07/04/20 07/04/20 History Ranolazine [Ranolazine ER] 500 mg PO BID 07/04/20 07/04/20 History hydroCHLOROthiazide [Hydrodiuril] 25 mg PO DAILY 07/04/20 07/04/20 History Magnesium Oxide [Mag-Ox] 400 mg PO DAILY 5 Days #5 tablet 07/05/20 Rx Allergies Allergy/AdvReac Type Severity Reaction Status Date / Time wheat Allergy Unknown Nausea & Verified 06/03/22 03:18 Vomiting drospirenone Allergy Rash/Hives Verified 06/03/22 03:18 [From Danita (28)] ethinyl estradiol Allergy Rash/Hives Verified 06/03/22 03:18 [From Danita (28)] Milk Containing Products Allergy Nausea & Verified 06/03/22 03:18 [Dairy] Vomiting Physical Exam Vitals: Vital Signs Temp Pulse Resp BP Pulse Ox 06/03/22 09:47 64 20 109/59 98 06/03/22 08:00 76 20 123/73 98 06/03/22 06:32 66 18 121/75 97 06/03/22 05:23 76 18 108/61 96 06/03/22 04:42 75 20 100/54 96 06/03/22 03:38 72 24 97/66 98 06/03/22 03:16 98.7 F 86 20 150/87 100 Intake and Output 06/02/22 06/03/22 06/03/22 22:59 06:59 14:59 Other: Weight 141.521 kg PHYSICAL EXAMINATION: This is a 47-year-old female in no apparent distress at the time of my examination. HEENT: Head is atraumatic, normocephalic. Pupils are equal, round. Sclerae anicteric. Conjunctivae are clear. Mucous membranes of the mouth are moist. Neck is supple. There is no elevated jugular venous pressure. No carotid bruit is heard. CHEST EXAMINATION: Clear to auscultation bilaterally. No wheezes rales or rhonchi. Respirations even and nonlabored. HEART EXAMINATION: Heart regular, positive S1 and S2. No S3. No S4. No clicks, rubs or murmurs. ABDOMEN: Soft, nontender. Bowel sounds are heard. No organomegaly noted. EXTREMITIES: 2+ peripheral pulses with no evidence of peripheral edema and no calf tenderness noted. NEUROLOGIC EXAMINATION: Patient is awake, alert and oriented x3. Results 06/03/22 08:45 06/03/22 03:39 Cardiac Enzymes 06/03/22 06/03/22 06/03/22 Range/Units 03:39 03:39 08:45 AST 18 (14-36) U/L Troponin I <0.012 <0.012 (0.000-0.034) ng/mL Coagulation 06/03/22 Range/Units 03:39 PT 9.6 (9.0-12.0) sec APTT 22.3 (22.0-30.0) sec CBC 06/03/22 06/03/22 Range/Units 03:39 08:45 WBC 14.7 H (3.8-10.6) k/uL RBC 4.82 (3.80-5.40) m/uL Hgb 14.5 (11.4-16.0) gm/dL Hct 41.9 (34.0-46.0) % Plt Count 474 H 272 (150-450) k/uL Comprehensive Metabolic Panel 06/03/22 Range/Units 03:39 Sodium 140 (137-145) mmol/L Potassium 3.6 (3.5-5.1) mmol/L Chloride 102 (98-107) mmol/L Carbon Dioxide 25 (22-30) mmol/L BUN 17 (7-17) mg/dL Creatinine 0.71 (0.52-1.04) mg/dL Glucose 95 (74-99) mg/dL Calcium 9.8 (8.4-10.2) mg/dL AST 18 (14-36) U/L ALT 17 (4-34) U/L Alkaline Phosphatase 106 (38-126) U/L Total Protein 7.0 (6.3-8.2) g/dL Albumin 4.4 (3.5-5.0) g/dL Current Medications Generic Name Dose Route Start Last Admin Trade Name Brian PRN Reason Stop Dose Admin Aspirin 325 mg 06/04/22 09:00 Aspirin 325 Mg Tab PO DAILY [facility] Atorvastatin Calcium 80 mg 06/03/22 09:00 06/03/22 07:57 Atorvastatin 80 Mg Tab PO 80 mg DAILY MIGUEL ÁNGEL Administration Heparin Sodium/Sodium Chloride 250 mls @ 10 mls/hr 06/03/22 05:30 06/03/22 05:43 25,000 unit/ Sodium Chloride IV 7.0661 units/kg/hr .Q24H MIGUEL ÁNGEL 10 mls/hr Administration Protocol 7.0661 UNITS/KG/HR Morphine Sulfate 4 mg 06/03/22 05:24 Morphine Sulfate 4 Mg/Ml Syringe IV Q4HR PRN Chest Pain Nitroglycerin 0.4 mg 06/03/22 05:24 Nitroglycerin Sl Tabs 0.4 Mg Tab SUBLINGUAL Q5M PRN Chest Pain Intake and Output 06/02/22 06/03/22 06/03/22 22:59 06:59 14:59 Other: Weight 141.521 kg 06/03/22 08:45 06/03/22 03:39 Assessment and Plan Assessment: #1 symptoms of chest pressure, troponins negative 2 #2 CAD with prior PCI of LAD in February 2020 #3 hypertension #4 hyperlipidemia #5 type 2 diabetes Plan: From cardiology perspective will obtain a 2-D echo with Doppler study to assess cardiac structure and function. We will obtain a Lexiscan MPI to be done tomorrow. Depending on the patient's clinical course and diagnostic findings further recommendations will be made. AIR PUMPER note has been reviewed, I agree with a documented findings and plan of care. Patient was seen and examined.
[2022-06-03] MEDS: HEPARIN SODIUM 1,000 UN/ML (10ML VL) IV PRN ×2 (14:43→22:24)
--- NOTE | 2022-06-03 15:47 | P.HPIM ---
History of Present Illness H&P Date: 06/03/22 Chief Complaint: Chest pain Jeremie is a pleasant 47-year-old female with a long-standing history hypertension hyperlipidemia obesity type 2 diabetes non-ST elevated ID February 2020, at which time she underwent cardiac catheterization which revealed no significant disease in the RCA he was about 40% diffuse disease left main and circumflex free of significant disease. 80% lesion mid LAD with distal LAD having diffuse disease. Most recent stress test done in June showed no evidence of ischemia last echo performed in feb, 2020 showed normal LV function Review of Systems Constitutional: Reports as per HPI Cardiovascular: Reports chest pain, Reports high blood pressure, Reports lightheadedness Respiratory: Reports as per HPI Gastrointestinal: Reports as per HPI Genitourinary: Reports as per HPI Menstruation: Reports as per HPI Musculoskeletal: Reports as per HPI Integumentary: Reports as per HPI Neurological: Reports as per HPI Psychiatric: Reports as per HPI Past Medical History Past Medical History: Asthma, Diabetes Mellitus, GERD/Reflux, Hyperlipidemia, Liver Disease, Myocardial Infarction (ID), Osteoarthritis (OA), Pneumonia, Thyroid Disorder Additional Past Medical History / Comment(s): NIDDM type II, neuropathy bilate ral feet-mild, bilateral diabetic retinopathy, htn-occasionall found high but when placed on antihypertensives she goes too low, bronchitis, enlarged liver, migraines, gout R foot, UTIs, hypothyroid, R knee pain/OA, history of frequent vomiting-was daily but states since starting allergy injections vomiting has decreased to about once a week. Last Myocardial Infarction Date:: 02/19/2020 History of Any Multi-Drug Resistant Organisms: None Reported Past Surgical History: Cholecystectomy, Heart Catheterization With Stent Additional Past Surgical History / Comment(s): EGD. colonoscopy, deviated se ptum/sinus surgery Additional Past Anesthesia/Blood Transfusion Reaction / Comment(s): hard to wake up after anesthesia. felt sore for days after general anesthesia. Pts sister has difficulty waking up also. Date of Last Stent Placement:: 02/19/2020 Past Psychological History: Anxiety Smoking Status: Never smoker Past Alcohol Use History: Occasional Past Drug Use History: Marijuana - Past Family History Father Family Medical History: Cancer Additional Family Medical History / Comment(s): colon Mother Family Medical History: Congestive Heart Failure (CHF), Fibromyalgia Additional Family Medical History / Comment(s): Mental illnesses Medications and Allergies Home Medications Medication Instructions Recorded Confirmed Type metFORMIN HCL [Glucophage] 1,000 mg PO BID 10/05/15 06/03/22 History Ergocalciferol (Vitamin D2) 50,000 unit PO MOWESA 09/11/17 06/03/22 History [Vitamin D2] Budesonide-Formot 160-4.5 Mcg 2 puff INHALATION RT-BID PRN 02/18/20 06/03/22 History [Symbicort 160-4.5 Mcg Inhaler] Atorvastatin [Lipitor] 80 mg PO HS #30 tab 02/20/20 06/03/22 Rx Nitroglycerin Sl Tabs [Nitrostat] 0.4 mg SUBLINGUAL Q5M PRN #25 tab 02/20/20 06/03/22 Rx ALPRAZolam [Xanax] 0.25 mg PO Q6H PRN 07/04/20 06/03/22 History Albuterol Sulfate [Ventolin HFA] 1 - 2 puff INHALATION RT-Q6H PRN 07/04/20 06/03/22 History Cyclobenzaprine [Flexeril] 5 mg PO BID PRN 07/04/20 06/03/22 History hydroCHLOROthiazide [Hydrodiuril] 25 mg PO DAILY 07/04/20 06/03/22 History Magnesium Oxide [Mag-Ox] 400 mg PO DAILY 5 Days #5 tablet 07/05/20 06/03/22 Rx DULoxetine HCL [Cymbalta] 30 mg PO HS 06/03/22 06/03/22 History Dicyclomine [Bentyl] 10 - 20 mg PO TID PRN 06/03/22 06/03/22 History Insulin Glargine,Hum.rec.anlog 10 units SQ HS 06/03/22 06/03/22 History [Lantus Solostar Pen] Levothyroxine Sodium [Unithroid] 125 mcg PO DAILY 06/03/22 06/03/22 History Metoprolol Succinate [Metoprolol 25 mg PO DAILY 06/03/22 06/03/22 History Succinate ER] Ondansetron Odt [Zofran Odt] 4 mg PO Q6H PRN 06/03/22 06/03/22 History Pioglitazone [Actos] 15 mg PO DAILY 06/03/22 06/03/22 History sitaGLIPtin [Januvia] 100 mg PO DAILY 06/03/22 06/03/22 History Allergies Allergy/AdvReac Type Severity Reaction Status Date / Time wheat Allergy Unknown Nausea & Verified 06/03/22 12:33 Vomiting drospirenone Allergy Rash/Hives Verified 06/03/22 12:33 [From Danita (28)] ethinyl estradiol Allergy Rash/Hives Verified 06/03/22 12:33 [From Danita (28)] Milk Containing Products Allergy Nausea & Verified 06/03/22 12:33 [Dairy] Vomiting Physical Exam Osteopathic Statement: *. No significant issues noted on an osteopathic structural exam other than those noted in the History and Physical/Consult. Vitals: Vital Signs Temp Pulse Pulse Resp BP BP Pulse Ox 06/03/22 14:08 97.9 F 67 16 102/71 98 06/03/22 11:10 97.6 F 74 16 114/74 96 06/03/22 10:46 75 16 145/65 98 06/03/22 09:47 64 20 109/59 98 06/03/22 08:00 76 20 123/73 98 06/03/22 06:32 66 18 121/75 97 06/03/22 05:23 76 18 108/61 96 06/03/22 04:42 75 20 100/54 96 06/03/22 03:38 72 24 97/66 98 06/03/22 03:16 98.7 F 86 20 150/87 100 Intake and Output 06/03/22 06/03/22 06/03/22 06:59 14:59 22:59 Intake Total 244.667 Balance 244.667 Intake: Intake, IV Titration 124.667 Amount Heparin Sod,Pork in 0.45% 124.667 NaCl 25,000 unit In 0.45 % NaCl 1 250ml.bag @ 7. 0661 UNITS/KG/HR 10 mls/ hr IV .Q24H [facility] Rx#: [id number] Oral 120 Other: Weight 141.521 kg General: Patient awake, alert and oriented times 3. Patient in no acute d istress. HEENT: PERRL. EOMI. No pharyngeal erythema or exudate. Neck: No adenopathy. Cardiac: Heart regular in rate and rhythm. No S3. No S4. No clicks, rubs. No murmur. Lungs: Clear to auscultation bilaterally. Abdomen: No mass. No organomegaly. Bowel sounds presnt and normoactive in all 4 quadrants. Morbidly obese Extremes: No edema no cyanosis no claudication normal pulses : Normal female genitalia Musculoskeletal: No joint erythema, edema or tenderness. Skin: No rash. Neurologic: No lateralizing deficits. CN II - XII grossly intact. Lymphatic: No adenopathy. Results CBC & Chem 7: 06/03/22 08:45 06/03/22 03:39 Labs: Abnormal Lab Results - Last 24 Hours (Table) 06/03/22 06/03/22 Range/Units 03:39 10:46 WBC 14.7 H (3.8-10.6) k/uL Plt Count 474 H (150-450) k/uL Lymphocytes # 6.4 H (1.0-4.8) k/uL Urine Protein Trace H (Negative) Thrombosis Risk Factor Assmnt - Choose All That Apply Each Factor Represents 1 point: Acute ID, Age 41-60 years, Obesity (BMI >25) Other Risk Factors: Yes Each Risk Factor Represents 3 Points: Family history of DVT/PE Thrombosis Risk Factor Assessment Total Risk Factor Score: 6 Thrombosis Risk Factor Assessment Level: High Risk Assessment and Plan (1) Atypical chest pain Current Visit: Yes Status: Acute Code(s): R07.89 - OTHER CHEST PAIN SNOMED Code(s): 977344993 (2) Chest pain Current Visit: Yes Status: Acute Code(s): R07.9 - CHEST PAIN, UNSPECIFIED SNOMED Code(s): 01351739 (3) NSTEMI (non-ST elevated myocardial infarction) Current Visit: Yes Status: Acute Code(s): I21.4 - NON-ST ELEVATION (NSTEMI) MYOCARDIAL INFARCTION SNOMED Code(s): 99596031 (4) Hypomagnesemia Current Visit: No Status: Acute Code(s): E83.42 - HYPOMAGNESEMIA SNOMED Code(s): 830695710 Plan: Patient admitted to the hospital Cardiology consult obtained 2-D echo Lexiscan MPI to be done tomorrow Time with Patient: Greater than 30
[2022-06-03] MEDS ORDERED: ALBUTEROL NEBULIZED 2.5 MG/3 ML INHALATION PRN (17:44)
[2022-06-03] MEDS ORDERED: CYCLOBENZAPRINE 5 MG TAB PO PRN (17:44)
[2022-06-03] MEDS ORDERED: DICYCLOMINE 10 MG CAP PO PRN (17:44)
[2022-06-03] MEDS ORDERED: ONDANSETRON ODT 4 MG TAB PO PRN (17:44)
[2022-06-03] MEDS ORDERED: ALPRAZolam 0.25 MG TAB PO PRN (17:44)
[2022-06-03] MEDS: SYMBICORT 160-4.5 MCG INHALER INHALATION PRN (19:12)
[2022-06-03] MEDS: metFORMIN 500 MG TAB PO SCH (20:41)
[2022-06-03] MEDS: ACETAMINOPHEN TAB 325 MG TAB PO PRN (20:41)
[2022-06-03] MEDS ORDERED: INSULIN DETEMIR (LEVEMIR) 100 UNIT/ML SYR SQ SCH (21:00)
[2022-06-03] MEDS ORDERED: DULoxetine HCL 30 MG CAPSULE.DR PO SCH (21:00)
[2022-06-03] MEDS ORDERED: ATORVASTATIN 80 MG TAB PO SCH (21:00)
[2022-06-04] MEDS: HEPARIN SOD,PORK IN 0.45% NACL 25,000 UNIT in 0.45% NACL 1 250ML.BAG IV SCH (00:14)
[2022-06-04] MEDS ORDERED: LEVOTHYROXINE 125 MCG TAB PO SCH (06:30)
[2022-06-04] MEDS ORDERED: AMINOPHYLLINE 500 MG/20 ML VIAL IV PRN (07:00)
[2022-06-04] MEDS ORDERED: CAFFEINE CITRATE 60 MG/3 ML VIAL IV PRN (07:00)
[2022-06-04] MEDS ORDERED: REGADENOSON 0.4 MG/5 ML SYRINGE IV PRN (07:00)
[2022-06-04] MEDS: SYMBICORT 160-4.5 MCG INHALER INHALATION PRN (07:18)
[2022-06-04] MEDS: metFORMIN 500 MG TAB PO SCH (07:54)
[2022-06-04] MEDS ORDERED: REGADENOSON 0.4 MG/5 ML SYRINGE IV ONE (08:00)
[2022-06-04] MEDS: ATORVASTATIN 80 MG TAB PO SCH (08:12)
[2022-06-04] MEDS: ACETAMINOPHEN TAB 325 MG TAB PO PRN (08:20)
[2022-06-04 08:33] VITALS: BP 111/74; PULSE 64; RESP 18; TEMP 97.7
[2022-06-04] MEDS ORDERED: MAGNESIUM OXIDE 400 MG TAB PO SCH (09:00)
[2022-06-04] MEDS ORDERED: LINAGLIPTIN 5 MG TABLET PO SCH (09:00)
[2022-06-04] MEDS ORDERED: PIOGLITAZONE 15 MG TAB PO SCH (09:00)
[2022-06-04] MEDS ORDERED: hydroCHLOROthiazide 25 MG TAB PO SCH (09:00)
[2022-06-04] MEDS ORDERED: METOPROLOL SUCCINATE (ER) 25 MG TAB.ER.24H PO SCH (09:00)
[2022-06-04] MEDS ORDERED: ERGOCALCIFEROL 1,250 MCG (50,000 IU) CAPSULE PO SCH (09:00)
[2022-06-04] MEDS ORDERED: ASPIRIN 325 MG TAB PO SCH (09:00)
[2022-06-04 09:04] LABS: Platelet Count 244 X 10*3/uL (140-440)
[2022-06-04 09:23] LABS: LDL Cholesterol,Calculated 44.6 mg/dL (0.0-131.0)
--- NOTE | 2022-06-04 11:53 | P.DS ---
Providers Date of admission: 06/03/22 05:24 Expected date of discharge: 06/04/22 Attending physician: Garcia Motta Consults: 06/03/22 05:24 Consult Physician Urgent Consulting Provider: Adrian Barbosa Consult Reason/Comments: known Do you want consulting provider notified?: Yes Primary care physician: [facility] Course: (1) Atypical chest pain Current Visit: Yes Status: Acute Code(s): R07.89 - OTHER CHEST PAIN SNOMED Code(s): 953485826 (2) Chest pain Current Visit: Yes Status: Acute Code(s): R07.9 - CHEST PAIN, UNSPECIFIED SNOMED Code(s): 40777194 (3) NSTEMI (non-ST elevated myocardial infarction) Current Visit: Yes Status: Acute Code(s): I21.4 - NON-ST ELEVATION (NSTEMI) MYOCARDIAL INFARCTION SNOMED Code(s): 55606305 (4) Hypomagnesemia Current Visit: No Status: Acute Code(s): E83.42 - HYPOMAGNESEMIA SNOMED Code(s): 188080274 Hospital course: Jeremie is a pleasant 47-year-old female with a long-standing history hypertension hyperlipidemia obesity type 2 diabetes non-ST elevated [place] February 2020, at which time she underwent cardiac catheterization which revealed no significant disease in the RCA he was about 40% diffuse disease left main and circumflex free of significant disease. 80% lesion mid LAD with distal LAD having diffuse disease. Most recent stress test done in June showed no evidence of ischemia last echo performed in feb, 2020 showed normal LV function Significant clinical improvement. Evaluated by cardiology, scheduled for Lexiscan stress test. Patient will be discharged home today, in a stable condition with guarded prognosis, pending Lexiscan stress test, final DC recommendations and clearance per cardiology. The impression and plan of care has been dictated as directed. : I performed a history and examination of this patient, discussed the same with the dictator. I agree with the dictator's note ,documented as a scribe. Any additional findings or plans will be noted. Patient Condition at Discharge: Stable Plan - Discharge Summary Discharge Rx Participant: No New Discharge Prescriptions: Continue metFORMIN HCL [Glucophage] 1,000 mg PO BID Ergocalciferol (Vitamin D2) [Vitamin D2] 50,000 unit PO MOWESA Budesonide-Formot 160-4.5 Mcg [Symbicort 160-4.5 Mcg Inhaler] 2 puff INHALATION RT-BID PRN PRN Reason: Shortness Of Breath Atorvastatin [Lipitor] 80 mg PO HS #30 tab Nitroglycerin Sl Tabs [Nitrostat] 0.4 mg SUBLINGUAL Q5M PRN #25 tab PRN Reason: Chest Pain Albuterol Sulfate [Ventolin HFA] 1 - 2 puff INHALATION RT-Q6H PRN PRN Reason: Shortness Of Breath Cyclobenzaprine [Flexeril] 5 mg PO BID PRN PRN Reason: Migraine Headache hydroCHLOROthiazide [Hydrodiuril] 25 mg PO DAILY ALPRAZolam [Xanax] 0.25 mg PO Q6H PRN PRN Reason: Anxiety Magnesium Oxide [Mag-Ox] 400 mg PO DAILY 5 Days #5 tablet Levothyroxine Sodium [Unithroid] 125 mcg PO DAILY DULoxetine HCL [Cymbalta] 30 mg PO HS Dicyclomine [Bentyl] 10 - 20 mg PO TID PRN PRN Reason: Gi Upset Pioglitazone [Actos] 15 mg PO DAILY Ondansetron Odt [Zofran ODT] 4 mg PO Q6H PRN PRN Reason: Nausea Metoprolol Succinate [Metoprolol Succinate ER] 25 mg PO DAILY sitaGLIPtin [Januvia] 100 mg PO DAILY Insulin Glargine,Hum.rec.anlog [Lantus Solostar Pen] 10 units SQ HS Discharge Medication List metFORMIN HCL [Glucophage] 1,000 mg PO BID 10/05/15 [History] Ergocalciferol (Vitamin D2) [Vitamin D2] 50,000 unit PO MOWESA 09/11/17 [History] Budesonide-Formot 160-4.5 Mcg [Symbicort 160-4.5 Mcg Inhaler] 2 puff INHALATION RT-BID PRN 02/18/20 [History] Atorvastatin [Lipitor] 80 mg PO HS #30 tab 02/20/20 [Rx] Nitroglycerin Sl Tabs [Nitrostat] 0.4 mg SUBLINGUAL Q5M PRN #25 tab 02/20/20 [Rx] ALPRAZolam [Xanax] 0.25 mg PO Q6H PRN 07/04/20 [History] Albuterol Sulfate [Ventolin HFA] 1 - 2 puff INHALATION RT-Q6H PRN 07/04/20 [History] Cyclobenzaprine [Flexeril] 5 mg PO BID PRN 07/04/20 [History] hydroCHLOROthiazide [Hydrodiuril] 25 mg PO DAILY 07/04/20 [History] Magnesium Oxide [Mag-Ox] 400 mg PO DAILY 5 Days #5 tablet 07/05/20 [Rx] DULoxetine HCL [Cymbalta] 30 mg PO HS 06/03/22 [History] Dicyclomine [Bentyl] 10 - 20 mg PO TID PRN 06/03/22 [History] Insulin Glargine,Hum.rec.anlog [Lantus Solostar Pen] 10 units SQ HS 06/03/22 [History] Levothyroxine Sodium [Unithroid] 125 mcg PO DAILY 06/03/22 [History] Metoprolol Succinate [Metoprolol Succinate ER] 25 mg PO DAILY 06/03/22 [History] Ondansetron Odt [Zofran ODT] 4 mg PO Q6H PRN 06/03/22 [History] Pioglitazone [Actos] 15 mg PO DAILY 06/03/22 [History] sitaGLIPtin [Januvia] 100 mg PO DAILY 06/03/22 [History] Follow up Appointment(s)/Referral(s): Adrian Barbosa MD [STAFF PHYSICIAN] - 2 Weeks Garcia Motta Jr, DO [Primary Care Provider] - 3 Days
--- NOTE | 2022-06-04 12:09 | CA ---
Lexiscan Nuclear Stress Test Report Name: Jeremei Guerrero Exam Date: 06/04/2022 10:03 Exam Location: [facility] Ht (in): 65 Wt (lb): 312 BSA: 2.39 Ordering Phys: Linda Barth NPC Referring Phys: PAOLA, Technologist: Jaime Jiménez Age: 47 Gender: F : 1975 Procedure CPT: Indications: Chest Pain ICD-10 Codes: Patient History: Chest pain and shortness of breath Medications: Meds past 24 hrs: Pretest Chest Pain: STRESS TEST Lexiscan Protocol Exercise Duration (min:sec): 01:[address] Depressions (mm): Angina Score: Benitez Score: Resting HR (bpm): 73 Peak HR (bpm): 112 Resting BP (mmHg): 138 / 93 Peak BP (mmHg): 156 / 107 MPHR: 172 Target HR: 146 % MPHR: 65 METS: 1.0 Total Dose: Peak Dose: Atropine: Double Product: 44662 BP Response: Stress Termination: INFUSION COMPLETE Stress Symptoms: STOMACH ACHE Stress Summary: ECG ANALYSIS Resting ECG: Stress ECG: CONCLUSIONS Non-diagnostic electrocardiogram stress testing Dr. Adrian Barbosa MD (Electronically Signed) Final Date: 04 June 2022 12:08
--- NOTE | 2022-06-04 12:11 | NM ---
EXAMINATION TYPE: NM stress lexiscan cardiolite DATE OF EXAM: 06/04/2022 COMPARISON: NONE HISTORY: History of asthma, hypertension, diabetes, hypercholesteremia, and prior heart attack with a ngioplasty treatment presents with chest pain and difficulty breathing. TECHNIQUE: After the intravenous administration of 10.2 mCi Tc 99m Sestamibi - Cardiolite resting SP ECT images acquired 90 minutes post injection. The patient received 0.4mg Lexiscan, 25.9 mCi Tc 99m Sestamibi - Stress images obtained [address] injection FINDINGS: Review of stress and rest SPECT images demonstrates no distinct perfusion abnormality. Gated analysi s shows normal wall motion with an estimated left ventricular ejection fraction of 65 %. IMPRESSION: No scintigraphic evidence for reversible ischemia.
== END 2022-06-04 14:30 | disposition home or self-care (01) ==
LOC: EC 03:09 → 6NMEDSUR 05:24
PROVIDERS: ADMIT Family Medicine; ATTEND Family Medicine
DX: R07.89 Other chest pain (principal); E83.42 Hypomagnesemia; I25.10 Atherosclerotic heart disease of native coronary artery without angina pectoris; I10 Essential (primary) hypertension; J45.909 Unspecified asthma, uncomplicated; E78.5 Hyperlipidemia, unspecified; E11.42 Type 2 diabetes mellitus with diabetic polyneuropathy; E11.319 Type 2 diabetes mellitus with unspecified diabetic retinopathy without macular edema; I25.2 Old myocardial infarction; R42 Dizziness and giddiness; H53.8 Other visual disturbances; K76.9 Liver disease, unspecified; K21.9 Gastro-esophageal reflux disease without esophagitis; M19.90 Unspecified osteoarthritis, unspecified site; E03.9 Hypothyroidism, unspecified; G43.909 Migraine, unspecified, not intractable, without status migrainosus; M17.11 Unilateral primary osteoarthritis, right knee; M10.9 Gout, unspecified; E66.9 Obesity, unspecified; Z68.43 Body mass index [BMI] 50.0-59.9, adult; F41.9 Anxiety disorder, unspecified; R91.1 Solitary pulmonary nodule; Z79.84 Long term (current) use of oral hypoglycemic drugs; Z79.890 Hormone replacement therapy; Z79.02 Long term (current) use of antithrombotics/antiplatelets; Z79.51 Long term (current) use of inhaled steroids; Z79.4 Long term (current) use of insulin; Z79.85 Long-term (current) use of injectable non-insulin antidiabetic drugs; Z79.899 Other long term (current) drug therapy; Z91.011 Allergy to milk products; Z88.8 Allergy status to other drugs, medicaments and biological substances; Z91.018 Allergy to other foods; Z87.440 Personal history of urinary (tract) infections; Z87.01 Personal history of pneumonia (recurrent); Z90.49 Acquired absence of other specified parts of digestive tract; Z95.5 Presence of coronary angioplasty implant and graft; Z80.0 Family history of malignant neoplasm of digestive organs; Z82.49 Family history of ischemic heart disease and other diseases of the circulatory system; Z81.8 Family history of other mental and behavioral disorders; Z82.69 Family history of other diseases of the musculoskeletal system and connective tissue
CPT/HCPCS: 96376 ×2; 96366 ×3; 96365; 99285; 36415; 94640 ×2; 93005; 93017; 93306; 80061; 80053; 83735; 84484; 85025; 85049 ×2; 85610; 85730 ×2; 81003; 87636; 71046; 78452; G0378 ×2; A9500; J1644 ×3; J2785

== ENCOUNTER → 2022-11-24 | Outpatient (CLI) | payer OTHER ==
--- NOTE | 2022-11-25 18:54 | MR ---
EXAMINATION TYPE: MR brain/orbits wo/w con DATE OF EXAM: 11/24/2022 10:18 AM COMPARISON: None. CLINICAL INDICATION:Female, 47 years old with history of H54.7 unspecified visual loss; Unspecified v isual loss, R/O MS\ TECHNIQUE: Multi planar, multi sequence imaging was performed through the orbits/face. Post contrast imaging was performed after the administration of 13 cc of Gadavist intravenously. FINDINGS, ORBITS: The globes appear symmetrical. Signal intensity of the globes and optic nerves ar e within normal limits. The intraorbital fat appears preserved. Both lacrimal glands are unremarkab le. The extraocular muscles appear symmetric. After administration of contrast, no abnormal enhanceme nt is seen. FINDINGS, BRAIN: The pena-white junctions, ventricular system, and cisterns do appear unremarkable. Diffusion-weighted imaging shows no evidence of restricted diffusion. Scattered small foci of high T 2/FLAIR signal within the periventricular white matter. Cavernous sinus is within normal limits. Aft er administration of contrast, no abnormal enhancement is seen within the brain. The bone marrow signal is within normal limits. Paranasal sinuses and mastoid air cells: Mild scattered paranasal sinus disease. Trace fluid in the r ight mastoid air cells. Visualized orbits: Orbital contents are intact. IMPRESSION: 1. No evidence of intraorbital mass or significant abnormality. 2. No evidence of intracranial mass nor acute/subacute CVA accident. 3. Minimal nonspecific white matter changes, these are non the typical distribution of multiple scle rosis. No evidence of active demyelination. 4. Trace right mastoid air cell effusion.
== END | disposition home or self-care (01) ==
LOC: RADMRIMAIN 08:48
PROVIDERS: ATTEND Ophthalmology
DX: G35 Multiple sclerosis (principal); H74.8X1 Other specified disorders of right middle ear and mastoid; R90.82 White matter disease, unspecified
CPT/HCPCS: 70543; 70553; A9585

== ENCOUNTER → 2023-01-15 | Outpatient (CLI) | payer OTHER ==
[2023-01-15 18:55] LABS: Total Protein,CSF 48 mg/dL (12-60)
[2023-01-15 19:10] LABS: Appearance,CSF Clear; CSF Tube Number 4; Nucleated Cells, CSF 1 u/L (0-5); Red Blood Cell,CSF 0 u/L (0-10)
[2023-01-16 12:02] LABS: IgG - CSF 1.7 mg/dL (0.0 - 3.4); IgG/Albumin Index (CSF) 0.45 (0.00 - 0.77); Immunoglobulin G 808 mg/dL (700 - 1600)
== END | disposition home or self-care (01) ==
LOC: LABWHC1 08:50
PROVIDERS: ATTEND Psychiatry & Neurology Neurology
DX: H46.9 Unspecified optic neuritis (principal); G35 Multiple sclerosis; R90.82 White matter disease, unspecified
CPT/HCPCS: 36415; 82040; 82042; 82784; 83873; 83916; 84157; 89050

== ENCOUNTER 2023-05-31 09:03 | Day surgery (SDC) | payer BC, OTHER ==
[~2023-05-31 09:03] MED LIST changes: +LIDOCAINE 1% (10MG/ML) FOR IV START INTRADERMA PRN
[2023-05-31 09:30] LABS: Glucose,Whole Blood 148 mg/dL (70-110)
[2023-05-31 09:43] VITALS: RESP 16; TEMP 97
[2023-05-31] MEDS ORDERED: LIDOCAINE 2% (PF) 20 MG/ML 5 ML VIAL ONE (09:43)
[2023-05-31] MEDS ORDERED: PROPOFOL 10 MG/ML 20 ML VIAL IV ONE (09:43)
--- NOTE | 2023-05-31 10:04 | P.PCN ---
Date of Procedure: 05/31/23 Procedure(s) Performed: Brief history: Patient is a pleasant 48-year-old white female scheduled for an elective upper endoscopy as well as colonoscopy as a part of evaluation of GERD/abdominal pain and screening for colon cancer/family history of colon cancer. Her father was diagnosed with colon cancer at age 60. She has been on Mounjaro for several months Procedure performed: Esophagogastroduodenoscopy with biopsy Colonoscopy Preoperative diagnosis: Abdominal pain/nausea vomiting Screening for colon cancer and family history of colon cancer Anesthesia: MAC Procedure: After informed consent was obtained from the patient was brought into the endoscopy unit and IV sedation was administered by anesthesia under continuous monitoring. Initially upper endoscopy was done. The Olympus GF 160 video endoscope was inserted inserted into the mouth and esophagus intubated without any difficulty and was gradually advanced into the stomach and duodenum and carefully examined. The bulb and second part of the duodenum appeared normal. The scope was then withdrawn into the stomach adequately insufflated with air and upon careful examination the antrum and body, cardia and fundus appeared normal. There was moderate amount of solid stool in the stomach consistent with gastroparesis. The scope was then withdrawn into the esophagus. The GE junction was located at 40 cm to the incisors. It appeared regular with no erythema erosions or ulcerations. Rest of the esophagus appeared normal. P atient tolerated the procedure well. At this time the patient continued to remain sedation. Initial digital rectal examination was normal. Olympus CF 160 video colonoscope was then inserted into the rectum and gradually advanced to the cecum without any difficulty. Careful examination was performed as the scope was gradually being withdrawn. The prep was fair.. The cecum, ascending colon, transverse colon, descending colon, sigmoid colon and rectum appeared normal. Retroflexion was performed in the rectum and no lesions were noted. Patient tolerated the procedure well. Impression: 1. Upper endoscopy revealed retained food in the stomach suggestive of gastroparesis and small hiatal hernia 2. Colonoscopy was within normal limits with no evidence of colitis or colorectal neoplasia Recommendations: Findings of this examination were discussed with the patient as well as her family. She was advised to continue with small frequent meals. Recommended repeat screening colonoscopy in 5 years because of the family history of colon cancer
[2023-05-31 10:34] VITALS: BP 116/78; PULSE 86
== END 2023-05-31 10:47 | disposition home or self-care (01) ==
LOC: ORWHC2ENDO 09:03
PROVIDERS: ATTEND Internal Medicine Gastroenterology
DX: Z12.11 Encounter for screening for malignant neoplasm of colon (principal); I25.10 Atherosclerotic heart disease of native coronary artery without angina pectoris; E78.5 Hyperlipidemia, unspecified; J45.909 Unspecified asthma, uncomplicated; F12.90 Cannabis use, unspecified, uncomplicated; E03.9 Hypothyroidism, unspecified; M10.9 Gout, unspecified; E11.40 Type 2 diabetes mellitus with diabetic neuropathy, unspecified; F41.9 Anxiety disorder, unspecified; G43.909 Migraine, unspecified, not intractable, without status migrainosus; K21.9 Gastro-esophageal reflux disease without esophagitis; K76.9 Liver disease, unspecified; Z79.84 Long term (current) use of oral hypoglycemic drugs; Z79.4 Long term (current) use of insulin; Z79.51 Long term (current) use of inhaled steroids; Z79.890 Hormone replacement therapy; Z79.82 Long term (current) use of aspirin; Z79.01 Long term (current) use of anticoagulants; Z80.0 Family history of malignant neoplasm of digestive organs
CPT/HCPCS: 45378; 43235; J2704; J2001

== ENCOUNTER → 2023-09-17 | Outpatient (CLI) | payer BC ==
--- NOTE | 2023-09-17 09:27 | XR ---
EXAMINATION TYPE: XR cervical spine comp DATE OF EXAM: 09/17/2023 CLINICAL HISTORY: pain COMPARISON: NONE TECHNIQUE: Frontal, lateral, oblique, swimmers, and open mouth view of the cervical spine are obtaine d. FINDINGS: The cervical spine is visualized in its entirety from C1 thru the top of T1 level. It is s atisfactory in alignment without evidence of acute fracture or dislocation. The pre-vertebral soft t issue appears within normal limits. Mild degenerative disc space narrowing at C6-7. Mild ventral spon dylosis. The C1-C2 articulation is unremarkable on the open mouth view. The oblique images are withi n normal limits. IMPRESSION: No acute fracture or dislocation is seen in the cervical spine.ICD 10 NO FRACTURE, INITI AL EVALUATION
== END | disposition home or self-care (01) ==
LOC: RADXRMAIN 09:01
PROVIDERS: ATTEND Family Medicine
DX: M54.12 Radiculopathy, cervical region (principal)
CPT/HCPCS: 72050

== ENCOUNTER → 2023-10-09 | Outpatient (CLI) | payer BC, OTHER ==
[2023-10-09 16:57] VITALS: BP 119/87; PULSE 68; RESP 16; TEMP 98; BMI 38.9
--- NOTE | 2023-10-09 17:00 | P.HPBAR ---
Bariatric H&P - History & Physicial H&P Date: 10/09/23 History & Physicial: Visit/CC: Pursuing [facility] Patient initial contact: Initial weight: 106.141 kg Initial weight in pounds: 234.00 Height: 5 ft 5 in Initial BMI: 38.9 Last weight: Current weight: 106.141 kg Current weight in pounds: 234.00 Current BMI: 38.9 Yoder body weight (based on NIH guidelines): 56.699 kg Excess body weight loss: 0.0% The patient is a 48 year-old F who presents for Bariatric Assessment. Needs skin removal surgery. Highest 410 pounds. Lowest 190 pounds. She is happy with weight loss. She is looking into panniculectomy. BMI is over 38+ She is off 6 to 7 drugs. She had a heart attack in the past. She is smallert than she was in high school. She works closely with her PCP. REcommend full bariatric. She is getting 75 grams daily to 100 grams daily. She has gastroparesis. She had nystatin powder since 1996 with steroid and was not healing. Use baby shampoo. She sees a neurologist. Weight loss of maintained. Past Medical History Past Medical History: Asthma, Diabetes Mellitus, GERD/Reflux, Hyperlipidemia, Liver Disease, Myocardial Infarction ([place]), Osteoarthritis (OA), Pneumonia, Thyroid Disorder Additional Past Medical History / Comment(s): NIDDM type II, neuropathy bilateral feet-mild, bilateral diabetic retinopathy, htn-occasionall found high but when placed on antihypertensives she goes too low, bronchitis, enlarged live r, migraines, gout R foot, UTIs, hypothyroid, , history of frequent vomiting- sinus issues recent dx II. gastroparesis 2019 Last Myocardial Infarction Date:: 02/19/2020 History of Any Multi-Drug Resistant Organisms: None Reported Past Surgical History: Cholecystectomy, Heart Catheterization With Stent Additional Past Surgical History / Comment(s): EGD. colonoscopy, deviated septum/sinus surgery Additional Past Anesthesia/Blood Transfusion Reaction / Comm: hard to wake up after anesthesia. felt sore for days after general anesthesia. Pts sister has difficulty waking up also. Date of Last Stent Placement:: 02/19/2020 Smoking Status: Never smoker - Past Family History Father Family Medical History: Cancer Additional Family Medical History / Comment(s): colon Mother Family Medical History: Congestive Heart Failure (CHF), Fibromyalgia Additional Family Medical History / Comment(s): Mental illnesses Surgical - Exam Vital Signs Temp Pulse Resp BP 98 F 68 16 119/87 10/09/23 16:37 10/09/23 16:37 10/09/23 16:37 10/09/23 16:37 Bariatric Checklist Checklist: Plan: Checklist: EGD: 1. Hiatal hernia: 2. H. Pylori: HgbA1c: Vitamin D: Smoking: Never smoker Primary care physician referral: Psychiatry clearance: Cardiology clearance: Sleep study: Diet journal: VTE risk score: VTE risk level: Rehab needs at discharge:
== END ==
LOC: BARWHC3 15:18
PROVIDERS: ATTEND Surgery Plastic and Reconstructive Surgery
DX: E66.01 Morbid (severe) obesity due to excess calories (principal); K31.84 Gastroparesis; Z86.74 Personal history of sudden cardiac arrest; Z91.018 Allergy to other foods; Z88.8 Allergy status to other drugs, medicaments and biological substances; Z91.011 Allergy to milk products; Z68.38 Body mass index [BMI] 38.0-38.9, adult
CPT/HCPCS: 99202

== ENCOUNTER → 2023-10-22 | Outpatient (CLI) | payer BC, OTHER ==
[2023-10-22 08:53] LABS: INR 0.9 (<1.2); Prothrombin Time 9.8 sec (10.0-12.5)
[2023-10-22 11:41] LABS: HCT 44.2 % (37.2-46.3); HGB 14.4 g/dL (12.0-15.0); MCH 29.3 pg (27.0-32.0); MCHC 32.6 g/dL (32.0-37.0); Mean Platelet Volume 9.9 FL (9.5-12.2); NRBC Per 100 WBC 0 X 10*3/uL (0.00-0.01); Platelet Count 366 X 10*3/uL (140-440); RBC 4.91 X 10*6/uL (4.10-5.20); RDW 12.6 % (11.5-14.5); WBC 4.52 X 10*3/uL (4.50-10.00)
[2023-10-22 15:46] LABS: Prealbumin 23.6 mg/dL (18.0-42.0)
[2023-10-22 16:11] LABS: % Iron Saturation 18.79 (12.00-45.00); ALT 16 U/L (8-44); AST 17 U/L (13-35); Albumin 4.7 g/dL (3.8-4.9); Albumin/Globulin Ratio 2.24 Ratio (1.60-3.17); Alkaline Phosphatase 103 U/L (41-126); BUN/Creat Ratio 15.25 Ratio (12.00-20.00); Blood Urea Nitrogen 12.2 mg/dL (9.0-27.0); Calcium 9.5 mg/dL (8.7-10.3); Carbon Dioxide 22.2 mmol/L (21.6-31.8); Chloride 110 mmol/L (96-109); Chol/HDL Ratio 2.66 Ratio; Globulin 2.1 g/dL (1.6-3.3); Glucose 202 mg/dL (70-110); Iron 65 UG/DL (50-170); LDL Cholesterol,Calculated 83.1 mg/dL (0.0-131.0); Magnesium 1.8 mg/dL (1.5-2.4); Potassium 3.8 mmol/L (3.5-5.5); Sodium 145 mmol/L (135-145); Total Bilirubin <0.2 mg/dL (0.3-1.2); Total Iron Binding Capacity 346 UG/DL (228-460); Total Protein 6.8 g/dL (6.2-8.2); VLDL Calculation 19.76 mg/dL (5.00-40.00)
[2023-10-22 16:12] LABS: Ferritin 71.2 ng/mL (10.0-291.0)
[2023-10-22 18:46] LABS: Urine Alcohol Negative (Negative); Urine Barbiturate Positive (Negative); Urine Cocaine Negative (Negative); Urine Methadone Negative (Negative); Urine Opiates Negative (Negative); Urine Phencyclidine Negative (Negative)
[2023-10-23 10:22] LABS: Zinc, Serum 91 ug/dL (60-130)
[2023-10-24 07:03] LABS: Anabasine Urine <2.0 ng/mL (<2.0)
== END | disposition home or self-care (01) ==
LOC: LABWHC1 07:58
PROVIDERS: ATTEND Surgery Plastic and Reconstructive Surgery
DX: E66.01 Morbid (severe) obesity due to excess calories (principal); E89.1 Postprocedural hypoinsulinemia; D50.8 Other iron deficiency anemias; K91.2 Postsurgical malabsorption, not elsewhere classified; E44.0 Moderate protein-calorie malnutrition; E44.1 Mild protein-calorie malnutrition; E45 Retarded development following protein-calorie malnutrition; E55.9 Vitamin D deficiency, unspecified; K74.1 Hepatic sclerosis; N19 Unspecified kidney failure; T56.894A Toxic effect of other metals, undetermined, initial encounter; K50.90 Crohn's disease, unspecified, without complications
CPT/HCPCS: 36415; 80053; 80061; 80306; 80323; 82306; 82525; 82607; 82728; 82746; 83036; 83540; 83550; 83735; 83970; 84100; 84134; 84255; 84425; 84443; 84590; 84630; 85027; 85610; 85730; 93005

== ENCOUNTER → 2023-11-06 | Outpatient (CLI) | payer BC, OTHER ==
[2023-11-06 16:26] VITALS: BP 105/74; PULSE 77; RESP 16; TEMP 97.5; BMI 38.6
--- NOTE | 2023-11-06 16:49 | P.BASOAP ---
Subjective Progress Note Date: 11/06/23 DATE OF SERVICE: 11/06/23 CHIEF COMPLAINT: Panniculitis HISTORY OF PRESENT ILLNESS: Jeremie Guerrero is a 48-year-old female with long standing history of panniculitis for over 3 years. She has been using multiple prescriptions without improvement of her symptoms. She has troubles with grooming and hygiene as a result of her pannus. Her pannus interferes with her activities of daily living including dressing, bathing, and hygiene. She presents for panniculectomy. At her height of 5 feet 5 inches, her ideal body weight is 149 pounds. She presents to 232 pounds with body mass index 38.6. She is 83 pounds overweight. PAST MEDICAL HISTORY: 1. Morbid obesity due to excess calories, BMI 38.6 2. Diabetes type 2, [id number] 3. Hyperlipidemia 4. Angina 5. Generalized anxiety disorder 6. Asthma 7. Depressive disorder 8. Hypertensive heart disease 9. Idiopathic intracranial hypertension 10. Hypothyroidism 11. Osteoarthritis left knee 12. History of myocardial infarction 13. Pseudotumor cerebri 14. Diabetic gastroparesis 15. Chronic urinary tract infection 16. Gout 17. Fatty liver disease 18. Migraines 19. Bilateral diabetic retinopathy 20. Bronchitis 21. Diabetic neuropathy bilateral feet 22. Gastroesophageal reflux disease PAST SURGICAL HISTORY: 1. Sinus surgery 2. Left knee meniscus repair 3. EGD 4. Colonoscopy 5. Cholecystectomy 6. Cardiac catheterization with stent placement MEDICATIONS: Home Medications Medication Instructions Recorded Confirmed Type metFORMIN HCL [Glucophage] 1,000 mg PO BID 10/05/15 11/19/23 History Ergocalciferol (Vitamin D2) 50,000 unit PO MOWESA 09/11/17 11/19/23 History [Vitamin D2] Atorvastatin [Lipitor] 80 mg PO HS #30 tab 02/20/20 11/19/23 Rx Nitroglycerin Sl Tabs [Nitrostat] 0.4 mg SUBLINGUAL Q5M PRN #25 tab 02/20/20 11/19/23 Rx ALPRAZolam [Xanax] 0.25 mg PO Q6H PRN 07/04/20 11/19/23 History Albuterol Sulfate [Ventolin HFA] 1 - 2 puff INHALATION RT-Q6H PRN 07/04/20 11/19/23 History DULoxetine HCL [Cymbalta] 60 mg PO HS 06/03/22 11/19/23 History Metoprolol Succinate [Metoprolol 25 mg PO QAM 06/03/22 11/19/23 History Succinate ER] Ondansetron Odt [Zofran ODT] 4 mg PO Q6H PRN 06/03/22 11/19/23 History Aspirin 81 mg PO DAILY 05/28/23 11/19/23 History Tirzepatide [Mounjaro] 7.5 mg SQ MO 05/28/23 11/19/23 History Unk Magnesium 1,000 mg PO BID 05/28/23 11/19/23 History acetaZOLAMIDE [Acetazolamide] 750 mg PO BID 05/28/23 11/19/23 History Levothyroxine Sodium [Synthroid] 125 mcg PO QAM 11/19/23 11/19/23 History ALLERGIES: Allergies Allergy/AdvReac Type Severity Reaction Status Date / Time wheat Allergy Unknown Nausea & Verified 11/25/23 11:09 Vomiting drospirenone Allergy Rash/Hives Verified 11/25/23 11:09 [From Danita (28)] ethinyl estradiol Allergy Rash/Hives Verified 11/25/23 11:09 [From Danita (28)] Milk Containing Products Allergy Nausea & Verified 11/25/23 11:09 (Dairy) Vomiting [Dairy] SOCIAL HISTORY: No current tobacco abuse FAMILY HISTORY: Denies any ulcerative colitis or Crohn's disease. REVIEW OF SYSTEMS: CONSTITUTIONAL: No fevers or chills GASTROINTESTINAL: Gastroesophageal reflux disease improved. No dumping syndrome. RESPIRATORY: Resolved obstructive sleep apnea. No pneumonia. MUSCULOSKELETAL: She has intermittent joint pain, including lower back pain from pannus. HEENT: Denies any troubles with vision or hearing. ENDOCRINE: Prediabetic state resolved. No reports of thyroid disorders. CARDIOVASCULAR: Denies any of recent palpitation or heart attack. Hypertension resolved. PSYCH: History of depression resolved. No anxiety. HEMATOLOGIC: Denies any personal history of venothrombotic event. SKIN: Has panniculitis. No recent skin cancer. PHYSICAL EXAM: VITAL SIGNS: 5 feet 5 inches, 232 pounds. Body mass index 38.6 Vital Signs Temp 97.5 F L 11/06/23 16:08 Pulse 77 11/06/23 16:08 Resp 16 11/06/23 16:08 BP 105/74 11/06/23 16:08 Pulse Ox FiO2 ABDOMEN: Soft, nontender. Non-distended. GENERAL: Well-developed, pleasant female in no acute distress. HEENT: No scleral icterus. Extraocular movements grossly intact. Moist buccal mucosa. NECK: Supple. No lymphadenopathy. No JV distention. CHEST: Unlabored respirations, equal bilateral excursions. CARDIOVASCULAR: Regular rate and rhythm. MUSCULOSKELETAL: No clubbing, cyanosis, or edema. NEURO: Moves all extremities. Cranial nerves 2 through 12 grossly intact. PSYCH: Appropriate affect. Alert and oriented to person, place and time. SKIN: Well perfused. Good skin turgor. Pannus over 10 pounds with skin inflammation along the apron over the pubis, 8 cm with redness and panniculitis ASSESSMENT: 1. Morbid obesity due to excess calories, BMI 38.6 2. Diabetes type 2, [id number] 3. Hyperlipidemia 4. Angina 5. Generalized anxiety disorder 6. Asthma 7. Depressive disorder 8. Hypertensive heart disease 9. Idiopathic intracranial hypertension 10. Hypothyroidism 11. Osteoarthritis left knee 12. History of myocardial infarction 13. Pseudotumor cerebri 14. Diabetic gastroparesis 15. Chronic urinary tract infection 16. Gout 17. Fatty liver disease 18. Migraines 19. Bilateral diabetic retinopathy 20. Bronchitis 21. Diabetic neuropathy bilateral feet 22. Gastroesophageal reflux disease 23. Panniculitis PLAN: 1. Recommend panniculectomy for chronic panniculitis. Panniculectomy should correct her functional deficits. Risks including numbness of the skin, cosmetic deformity also reviewed. Need for further surgery also reviewed. 2. Recommend 2 week protein diet for optimal recovery 3. Risks of bleeding, needs for drains, flap failure, infection, need for further surgery were described. She is high risk for petros-operative c omplications with anticipated 10+ pound skin resection. 4. Inpatient hospitalization also described 5. DVT prophylaxis. 6 Extended recovery more than 6-8 weeks described including placement of arin ins more than 2 weeks reviewed. 7. she is elevated risk for complications due to multiple comorbidities including diabetes type 2 with neuropathy and retinopathy. Tight glycemic control described. Objective - Vital Signs Vital signs: Vital Signs Temp 97.5 F L 11/06/23 16:08 Pulse 77 11/06/23 16:08 Resp 16 11/06/23 16:08 BP 105/74 11/06/23 16:08 Pulse Ox FiO2 Intake & Output 11/05/23 11/06/23 11/06/23 18:59 06:59 18:59 Weight 105.233 kg Assessment/Plan Plan: Date: 11/06/23 Initial Weight: 106.141 kg Initial BMI: 38.9 Current Weight: 105.233 kg Current BMI: 38.6 Type of Surgery: Total Volume in Band: Previous Volume: Volume Removed: Volume Added: Band Size:
== END ==
LOC: BARWHC3 15:36
PROVIDERS: ATTEND Surgery Plastic and Reconstructive Surgery
DX: E66.01 Morbid (severe) obesity due to excess calories (principal); E78.5 Hyperlipidemia, unspecified; F41.1 Generalized anxiety disorder; I20.9 Angina pectoris, unspecified; I11.9 Hypertensive heart disease without heart failure; F32.A Depression, unspecified; E03.9 Hypothyroidism, unspecified; G93.2 Benign intracranial hypertension; M17.12 Unilateral primary osteoarthritis, left knee; I25.2 Old myocardial infarction; N39.0 Urinary tract infection, site not specified; E11.43 Type 2 diabetes mellitus with diabetic autonomic (poly)neuropathy; K31.84 Gastroparesis; M10.9 Gout, unspecified; G43.909 Migraine, unspecified, not intractable, without status migrainosus; E11.319 Type 2 diabetes mellitus with unspecified diabetic retinopathy without macular edema; J40 Bronchitis, not specified as acute or chronic; E11.40 Type 2 diabetes mellitus with diabetic neuropathy, unspecified; K21.9 Gastro-esophageal reflux disease without esophagitis; M79.3 Panniculitis, unspecified; Z68.38 Body mass index [BMI] 38.0-38.9, adult; Z79.84 Long term (current) use of oral hypoglycemic drugs; Z79.899 Other long term (current) drug therapy; Z79.890 Hormone replacement therapy; Z91.018 Allergy to other foods; Z91.011 Allergy to milk products; Z88.8 Allergy status to other drugs, medicaments and biological substances
CPT/HCPCS: 99211

== ENCOUNTER 2023-11-25 11:02 | Observation (INO) | payer BC, OTHER ==
[2023-11-19 15:08] VITALS: BMI 38.9
[~2023-11-25 11:02] MED LIST changes: +HYDROmorphone 0.5 MG/0.5 ML SYRINGE IVP PRN; -LACTATED RINGERS 1,000 ML IV SCH; +ONDANSETRON 4 MG/2 ML VIAL IVP PRN
[2023-11-25] MEDS: IV FLUID CONTINUATION 1,000 ML IV ONE ×2 (11:15→15:22)
[2023-11-25 11:25] LABS: Glucose,Whole Blood 105 mg/dL (70-110)
[2023-11-25] MEDS: DEXAMETHASONE SOD PHOSPHATE 4 MG/ML 1 ML VIAL IV ONE (11:36)
[2023-11-25] MEDS: HEPARIN SODIUM,PORCINE 5,000 UNIT/ML 1 ML VIAL SQ PRN (11:36)
[2023-11-25] MEDS: ONDANSETRON 4 MG/2 ML VIAL IVP ONE (11:36)
[2023-11-25] MEDS: ACETAMINOPHEN TAB 500 MG TAB PO PRN (11:37)
[2023-11-25] MEDS: LACTATED RINGERS 1,000 ML IV SCH (11:37)
[2023-11-25] MEDS: MIDAZOLAM 2 MG/2 ML VIAL IVP ONE (11:50)
[2023-11-25] MEDS ORDERED: HEPARIN SODIUM,PORCINE 5,000 UNIT/ML 1 ML VIAL SQ STA (11:54)
--- NOTE | 2023-11-25 11:54 | P.GSHP ---
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 She reports painful skin ulcerations and breakdown along her pannus despite medical treatments and prescriptions. She has been using prescription strength Nystatin powder without improvement. She has tried deoderants including [id number] treatment without improvement. She has pulling sensation along her lower back from her pannus. She has troubles with grooming and hygiene as a result of her pannus. Her pannus interferes with her activities of daily living including dressing, bathing, and hygiene. She presents for panniculectomy. PAST MEDICAL HISTORY: Reviewed PAST SURGICAL HISTORY: Reviewed MEDICATIONS: Reviewed ALLERGIES: Reviewed SOCIAL HISTORY: No current tobacco abuse FAMILY HISTORY: Denies any ulcerative colitis or Crohn's disease. REVIEW OF SYSTEMS: CONSTITUTIONAL: No fevers or chills GASTROINTESTINAL: Gastroesophageal reflux disease improved. No dumping syndrome. RESPIRATORY: Resolved obstructive sleep apnea. No pneumonia. MUSCULOSKELETAL: She has intermittent joint pain, including lower back pain from pannus. HEENT: Denies any troubles with vision or hearing. ENDOCRINE: Prediabetic state resolved. No reports of thyroid disorders. CARDIOVASCULAR: Denies any of recent palpitation or heart attack. Hypertension resolved. PSYCH: History of depression resolved. No anxiety. HEMATOLOGIC: Denies any personal history of venothrombotic event. SKIN: Has panniculitis. No recent skin cancer. PHYSICAL EXAM: VITAL SIGNS: 5 feet 5 inches, 106.141 kg. Body mass index 30.9 ABDOMEN: Soft, nontender. Non-distended. GENERAL: Well-developed, pleasant female in no acute distress. HEENT: No scleral icterus. Extraocular movements grossly intact. Moist buccal mucosa. NECK: Supple. No lymphadenopathy. No JV distention. CHEST: Unlabored respirations, equal bilateral excursions. CARDIOVASCULAR: Regular rate and rhythm. MUSCULOSKELETAL: No clubbing, cyanosis, or edema. NEURO: Moves all extremities. Cranial nerves 2 through 12 grossly intact. PSYCH: Appropriate affect. Alert and oriented to person, place and time. SKIN: Well perfused. Good skin turgor. Pannus over 10 pounds with skin inflammation along the apron over the pubis, 8 cm with redness and panniculitis ASSESSMENT: 1. Morbid obesity due to excess calories. 2. Body mass index 30.9 3. Panniculitis PLAN: 1. Recommend panniculectomy for chronic panniculitis with concomittant severe lower back pain and uncontrolled symptoms despite systemic and local treatment including limitation of activities of daily living. Anticipated resection over 10+ pounds described. Panniculectomy should correct her functional deficits. 2. Recommend 2 week protein diet for optimal recovery 3. Risks of bleeding, needs for drains, flap failure, infection, need for further surgery were described. She is high risk for petros-operative complications with anticipated 10+ pound skin resection. 4. Inpatient hospitalization also described 5. DVT prophylaxis. 6 Extended recovery more than 6-8 weeks described including placement of drains more than 2 weeks reviewed. 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 Last Myocardial Infarction Date:: 02/19/2020 History of Any Multi-Drug Resistant Organisms: None Reported Past Surgical History: Cholecystectomy, Heart Catheterization With Stent, Orthopedic Surgery Additional Past Surgical History / Comment(s): EGD, colonoscopy, deviated septu m/sinus surgery, left knee meniscus repair. Past Anesthesia/Blood Transfusion Reactions: No Reported Reaction Additional Past Anesthesia/Blood Transfusion Reaction / Comment(s): Hard to wake up after anesthesia, felt sore for days after general anesthesia. Sister has difficulty waking up also. Date of Last Stent Placement:: 02/19/2020 Smoking Status: Never smoker - Past Family History Father Family Medical History: Cancer Additional Family Medical History / Comment(s): Colon cancer. Mother Family Medical History: Congestive Heart Failure (CHF), Fibromyalgia Additional Family Medical History / Comment(s): Mental illnesses. Medications and Allergies Home Medications Medication Instructions Recorded Confirmed Type metFORMIN HCL [Glucophage] 1,000 mg PO BID 10/05/15 11/19/23 History Ergocalciferol (Vitamin D2) 50,000 unit PO MOWESA 09/11/17 11/19/23 History [Vitamin D2] Atorvastatin [Lipitor] 80 mg PO HS #30 tab 02/20/20 11/19/23 Rx Nitroglycerin Sl Tabs [Nitrostat] 0.4 mg SUBLINGUAL Q5M PRN #25 tab 02/20/20 11/19/23 Rx ALPRAZolam [Xanax] 0.25 mg PO Q6H PRN 07/04/20 11/19/23 History Albuterol Sulfate [Ventolin HFA] 1 - 2 puff INHALATION RT-Q6H PRN 07/04/20 11/19/23 History DULoxetine HCL [Cymbalta] 60 mg PO HS 06/03/22 11/19/23 History Metoprolol Succinate [Metoprolol 25 mg PO QAM 06/03/22 11/19/23 History Succinate ER] Ondansetron Odt [Zofran ODT] 4 mg PO Q6H PRN 06/03/22 11/19/23 History Aspirin 81 mg PO DAILY 05/28/23 11/19/23 History Tirzepatide [Mounjaro] 7.5 mg SQ MO 05/28/23 11/19/23 History Unk Magnesium 1,000 mg PO BID 05/28/23 11/19/23 History acetaZOLAMIDE [Acetazolamide] 750 mg PO BID 05/28/23 11/19/23 History Levothyroxine Sodium [Synthroid] 125 mcg PO QAM 11/19/23 11/19/23 History Allergies Allergy/AdvReac Type Severity Reaction Status Date / Time wheat Allergy Unknown Nausea & Verified 11/25/23 11:09 Vomiting drospirenone Allergy Rash/Hives Verified 11/25/23 11:09 [From Danita (28)] ethinyl estradiol Allergy Rash/Hives Verified 11/25/23 11:09 [From Danita (28)] Milk Containing Products Allergy Nausea & Verified 11/25/23 11:09 (Dairy) Vomiting [Dairy]
[2023-11-25] MEDS ORDERED: ACETAMINOPHEN TAB 500 MG TAB PO STA (11:55)
--- NOTE | 2023-11-25 12:06 | P.ANPRN ---
Procedure Note - Anesthesia - Nerve Block Performed Bilateral Erector Spinae Single Time Out Performed: Yes Date of Procedure: 11/25/23 Procedure Start Time: 11:50 Procedure Stop Time: 11:55 Location of Patient: PreOp Indication: Acute Post-Operative Pain, Analgesia, Requested by Surgeon Sedation Type: Sedate with meaningful contact maintained Preparation: Sterile Prep Position: Prone Needle Types: Pajunk Needle Gauge: 21 Ultrasound used to visualize needle placement: Yes Ultrasound used to observe medication spread: Yes Injectate: 0.5% Ropivacaine (see comment for volume) (Ropiv 20ml+decadron 4mg---each side. T11 level.) Blood Aspirated: No Pain Paresthesia on Injection Noted: No Resistance on Injection: Normal Image Stored and Saved: Yes Events: Uneventful and Well Tolerated
[2023-11-25] MEDS ORDERED: ePHEDrine 50 MG/ML 1 ML VIAL ONE (12:33)
[2023-11-25] MEDS ORDERED: DEXAMETHASONE SOD PHOSPHATE 4 MG/ML 1 ML VIAL ONE (12:33)
[2023-11-25] MEDS ORDERED: NEOSTIGMINE 1 MG/ML 10 ML VIAL ONE (12:33)
[2023-11-25] MEDS ORDERED: HYDROmorphone (PF) 1 MG/ML ONE (12:33)
[2023-11-25] MEDS ORDERED: GLYCOPYRROLATE 0.2 MG/ML 2 ML VIAL ONE (12:33)
[2023-11-25] MEDS ORDERED: LIDOCAINE 1% INJ 10MG/ML (20 ML MDV) ONE (12:33)
[2023-11-25] MEDS ORDERED: KETOROLAC 30 MG/ML 1 ML VIAL ONE (12:33)
[2023-11-25] MEDS ORDERED: fentaNYL (PF) 50 MCG/ML 2 ML AMP ONE (12:33)
[2023-11-25] MEDS ORDERED: PROPOFOL 10 MG/ML 20 ML VIAL IV ONE (12:33)
[2023-11-25] MEDS ORDERED: ROCURONIUM 10 MG/ML (5 ML VIAL) IV ONE (12:33)
[2023-11-25] MEDS ORDERED: ROPIVACAINE 5 MG/ML 30 ML VIAL ONE (12:33)
[2023-11-25] MEDS ORDERED: MIDAZOLAM 2 MG/2 ML VIAL ONE (12:33)
[2023-11-25] MEDS: LACTATED RINGERS 1,000 ML IV ONE (15:54)
[2023-11-25] MEDS ORDERED: NALOXONE 0.4 MG/ML 1 ML VIAL IV PRN (16:09)
[2023-11-25] MEDS ORDERED: ALPRAZolam 0.25 MG TAB PO PRN (16:09)
[2023-11-25] MEDS ORDERED: ALBUTEROL HFA INHALER INHALATION PRN (16:09)
[2023-11-25] MEDS ORDERED: NITROGLYCERIN SL TABS 0.4 MG TAB SUBLINGUAL PRN (16:09)
[2023-11-25] MEDS ORDERED: HYDROmorphone 1 MG/ML 1 ML SYRINGE IVP PRN (16:11)
[2023-11-25] MEDS ORDERED: DEXTROSE 50% SYRINGE 50 ML IVP PRN ×2 (16:13)
[2023-11-25] MEDS ORDERED: NON FORMULARY DRUG (Tirzepatide [Mounjaro] 7.5 MG/0.5 ML Pen.Injctr) SQ SCH (16:15)
[2023-11-25 16:24] LABS: Glucose,Whole Blood 193 mg/dL (70-110)
[2023-11-25] MEDS: droPERidol 5 MG/2 ML VIAL IVP ONE (16:38)
--- NOTE | 2023-11-25 16:56 | P.OP ---
Date of Procedure: 11/25/23 Description of Procedure: SURGEON: CHAPIN ESCALANTE MD PREOPERATIVE DIAGNOSES: 1. Panniculitis 2. Adiposis pediculosis 3. Morbid obesity due to excess calories, BMI 39.3 4. Diabetes type 2, ziy-dhilujr-yyawgrodf with neuropathy, bilateral feet 5. Diabetic retinopathy 6. Gout 7. Gastroparesis 8. Idiopathic intracranial hypertension 9. History of cardiac catheterization with stent placement 10. Hypercholesterolemia 11. Hypothyroidism 12. Depressive disorder 13. Hypertensive heart disease 14. Generalized anxiety disorder 15. Chronic obstructive pulmonary disease due to asthma 16. History of myocardial infarction 17. Fatty liver disease POSTOPERATIVE DIAGNOSES: 1. Panniculitis 2. Adiposis pediculosis 3. Morbid obesity due to excess calories, BMI 39.3 4. Diabetes type 2, jwy-duapuhb-vufvncdji with neuropathy, bilateral feet 5. Diabetic retinopathy 6. Gout 7. Gastroparesis 8. Idiopathic intracranial hypertension 9. History of cardiac catheterization with stent placement 10. Hypercholesterolemia 11. Hypothyroidism 12. Depressive disorder 13. Hypertensive heart disease 14. Generalized anxiety disorder 15. Chronic obstructive pulmonary disease due to asthma 16. History of myocardial infarction 17. Fatty liver disease OPERATION: 1. Panniculectomy, supra-umbilical, 36.1 pounds. ANESTHESIA: General, regional block ESTIMATED BLOOD LOSS: 500 mL SPECIMENS REMOVED: Pannus 12.3 pounds. COMPLICATIONS: None. CONDITION: Stable. DRAINS: Two #19 Sukhjinder drains below abdominal flap extending through the pubis. OPERATIVE FINDINGS: 1. Panniculectomy, 12.3 pounds. 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 She reports painful skin ulcerations and breakdown along her pannus despite medical treatments and prescriptions. She has been using prescription strength Nystatin powder without improvement. She has tried deoderants including efgi-iit-fckfbtx treatment without improvement. She has pulling sensation along her lower back from her pannus. She has troubles with grooming and hygiene as a result of her pannus. Her pannus interferes with her activities of daily living including dressing, bathing, and hygiene. She presents for panniculectomy. Benefits and risks of the procedure including bleeding, infection, risk of flap failure, chronic pain, cosmetic deformity, need for further surgery were described at length. Informed consent was obtained. DESCRIPTION: In the preanesthesia care unit the patient was marked with an indelible marker. He had also been given Lovenox subcutaneously. The patient was brought into the operating room and laid in supine position. After general induction, a Lam catheter was placed. The abdomen was then prepped and draped in standard sterile fashion using ChloraPrep. The skin was prepped as far laterally to the back, inferiorly to the upper thighs and superiorly to above the bilateral chest. A timeout protocol was confirmed with the surgical team regarding patient's name, procedure to be performed, including preoperative medications. He had received Ancef 3 grams IV antibiotics. Once the time-out protocol was confirmed with the surgical team, the patient was re-marked with indelible marker whereby the midline of the xiphoid to the pubis was marked. The anterior/superior iliac spine along the bilateral hips was also marked. Approximately 8 cm above the base of the pubis, a transverse incision was made for the inferior portion of the flap. Using a #10 blade, the incision was taken from the midline laterally to above the anterior/superior iliac spine, initially on the left side of the patient and then on the right side of the patient. Electro-Bovie cautery was used to control for hemostasis. The dissection was taken down to the level of the fascia. Landmarks used were to the bilateral costal margins for the superior margin. Care was taken to avoid any creation of dog ears during the dissection. Hemostasis was checked with electro-Bovie cautery. Attention was now brought to closure of the flap. Using stainless steel skin cydney, the midline was once again marked of the upper flap as well as the pubis. The patient was placed in a flexed position of approximately 30 degrees at the hips. The pannus was extended inferiorly to the feet. The upper flap was created once the excess skin was excised. Again care was taken to avoid any dog ears along the lateral aspect of the incisions. Once excised, the first pannus was weighed at 12.3 pounds. The upper and lower flaps were reapproximated at the midline and then laterally to the skin with skin cydney. Once reapproximated, the skin was closed in layer s using 0 Vicryl for the superficial fascial system followed by running 3-0 Monocryl for the deep dermis. Prior to skin closure, two round #19 Sukhjinder drains were placed underneath the flap and brought out just inferior to the incision along the pubis. Drain stitch using 2-0 nylon was placed. Once the incision was closed, bulb suction was attached. Hemostasis was checked. At the end of the procedure, the needle, sponge and instrument count was verified correct. Skin was cleansed with normal saline including hydrogen peroxide. Antibiotic Optifoam sponge dressing was placed over the incision following Dermabond tape. Optifoam dressing was placed over the CAROLINA exit sites. The patient was then transferred to a hospital bed in a beach chair position. An abdominal binder was placed. The patient was taken to the postanesthesia care unit in stable condition, awake and extubated.
[2023-11-25] MEDS: GABAPENTIN 300 MG CAP PO STA (17:02)
[2023-11-25] MEDS: GABAPENTIN 300 MG CAP PO SCH (17:03)
[2023-11-25] MEDS: D5-0.45% NACL WITH KCL 20MEQ/L 1,000 ML IV SCH (18:00)
[2023-11-25] MEDS: metFORMIN 500 MG TAB PO SCH (18:10)
[2023-11-25] MEDS: HYDROmorphone PCA 10 MG/50 ML BAG IV SCH (18:25)
[2023-11-25] MEDS: ACETAMINOPHEN TAB 500 MG TAB PO SCH (18:35)
[2023-11-25] MEDS: INSULIN ASPART (NovoLOG) 100 UNIT/ML VIAL SQ SCH (18:50)
[2023-11-25 18:58] LABS: Glucose,Whole Blood 206 mg/dL (70-110)
[2023-11-25] MEDS: acetaZOLAMIDE 250 MG TAB PO SCH (20:28)
[2023-11-25] MEDS: DULoxetine HCL 60 MG CAPSULE.DR PO SCH (20:28)
[2023-11-26 00:03] LABS: Glucose,Whole Blood 204 mg/dL (70-110)
[2023-11-26] MEDS: ONDANSETRON 4 MG/2 ML VIAL IVP PRN (03:42)
[2023-11-26 06:12] LABS: Glucose,Whole Blood 155 mg/dL (70-110)
[2023-11-26] MEDS: LEVOTHYROXINE 125 MCG TAB PO SCH (06:14)
[2023-11-26] MEDS: METOPROLOL SUCCINATE (ER) 25 MG TAB.ER.24H PO SCH (08:02)
[2023-11-26 12:18] LABS: Glucose,Whole Blood 138 mg/dL (70-110)
[2023-11-26 13:52] LABS: Basophils % (A) 0 %; Eosinophils % (A) 0 %; HCT 29.9 % (34.0-46.0); HGB 10.2 gm/dL (11.4-16.0); Lymphocytes # (A) 1.6 k/uL (1.0-4.8); Lymphocytes % (A) 15 %; MCH 30.7 pg (25.0-35.0); MCHC 34.1 g/dL (31.0-37.0); MCV 90.3 fL (80.0-100.0); Monocytes # (A) 0.7 k/uL (0-1.0); Monocytes % (A) 7 %; Neutrophils # (A) 7.7 k/uL (1.3-7.7); Neutrophils % (A) 76 %; Platelet Count 285 k/uL (150-450); RBC 3.32 m/uL (3.80-5.40); RDW 12.8 % (11.5-15.5); WBC 10.1 k/uL (3.8-10.6)
--- NOTE | 2023-11-26 14:13 | P.DS ---
Providers Date of admission: 11/26/23 11:09 Expected date of discharge: 11/26/23 Attending physician: Kristen Muir Primary care physician: [facility] Hospital Course: Discharge diagnosis 1. Panniculitis 2. Adiposis pediculosis 3. Morbid obesity due to excess calories, BMI 39.3 4. Diabetes type 2, eit-xqziyej-fastttwku with neuropathy, bilateral feet 5. Diabetic retinopathy 6. Gout 7. Gastroparesis 8. Idiopathic intracranial hypertension 9. History of cardiac catheterization with stent placement 10. Hypercholesterolemia 11. Hypothyroidism 12. Depressive disorder 13. Hypertensive heart disease 14. Generalized anxiety disorder 15. Chronic obstructive pulmonary disease due to asthma 16. History of myocardial infarction 17. 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 She is status post panniculectomy. Patient tolerated surgery well. Her pain is controlled. She has been up and ambulating. She is tolerating diet. She is having flatus. She is afebrile. She is stable for discharge. Physician Crm Coordinator note has been reviewed by physician. Signing provider agrees with the documented findings, assessment, and plan of care. Patient Condition at Discharge: Stable Plan - Discharge Summary Discharge Rx Participant: No New Discharge Prescriptions: New Acetaminophen Tab [Tylenol] 1,000 mg PO Q6HR PRN #30 tablet PRN Reason: Pain Continue metFORMIN HCL [Glucophage] 1,000 mg PO BID Nitroglycerin Sl Tabs [Nitrostat] 0.4 mg SUBLINGUAL Q5M PRN #25 tab PRN Reason: Chest Pain Albuterol Sulfate [Ventolin HFA] 1 - 2 puff INHALATION RT-Q6H PRN PRN Reason: Shortness Of Breath ALPRAZolam [Xanax] 0.25 mg PO Q6H PRN PRN Reason: Anxiety DULoxetine HCL [Cymbalta] 60 mg PO HS acetaZOLAMIDE [Acetazolamide] 750 mg PO BID Levothyroxine Sodium [Synthroid] 125 mcg PO QAM Ondansetron Odt [Zofran ODT] 4 mg PO Q6H PRN PRN Reason: Nausea Metoprolol Succinate [Metoprolol Succinate ER] 25 mg PO QAM Tirzepatide [Mounjaro] 7.5 mg SQ MO Discontinued Ergocalciferol (Vitamin D2) [Vitamin D2] 50,000 unit PO MOWESA Atorvastatin [Lipitor] 80 mg PO HS #30 tab Unk Magnesium 1,000 mg PO BID Aspirin 81 mg PO DAILY Discharge Medication List metFORMIN HCL [Glucophage] 1,000 mg PO BID 10/05/15 [History] Nitroglycerin Sl Tabs [Nitrostat] 0.4 mg SUBLINGUAL Q5M PRN #25 tab 02/20/20 [Rx] ALPRAZolam [Xanax] 0.25 mg PO Q6H PRN 07/04/20 [History] Albuterol Sulfate [Ventolin HFA] 1 - 2 puff INHALATION RT-Q6H PRN 07/04/20 [History] DULoxetine HCL [Cymbalta] 60 mg PO HS 06/03/22 [History] Metoprolol Succinate [Metoprolol Succinate ER] 25 mg PO QAM 06/03/22 [History] Ondansetron Odt [Zofran ODT] 4 mg PO Q6H PRN 06/03/22 [History] Tirzepatide [Mounjaro] 7.5 mg SQ MO 05/28/23 [History] acetaZOLAMIDE [Acetazolamide] 750 mg PO BID 05/28/23 [History] Levothyroxine Sodium [Synthroid] 125 mcg PO QAM 11/19/23 [History] Acetaminophen Tab [Tylenol] 1,000 mg PO Q6HR PRN #30 tablet 11/26/23 [Rx] Follow up [facility]ment(s[facility]Ref[facility] [place] [place] [facility] [place] 11[facility]23 9:00 am Activity/Diet/Wound Care/Special Instructions: No lifting over 4 pounds in 4 weeks. No bathtub soaks. No shower. Sponge bath only. No stretching or twisting. Sleep in a recliner. DO NOT REMOVE DRESSINGS. DO NOT REMOVE BINDER. Keep record of CAROLINA outputs daily. Hold on taking vitamins, lipitor and Aspirin due to increase bleeding risk with these medications until seen by surgeon Discharge Disposition: HOME SELF-CARE
[2023-11-26 15:20] VITALS: BP 95/60; PULSE 75; RESP 16; TEMP 98.7
== END 2023-11-26 16:39 | disposition home or self-care (01) ==
LOC: OR 11:02 → 4SSUR 16:32 → OR 11-26 11:09 → 4SSUR 11-26 11:09
PROVIDERS: ADMIT Surgery Plastic and Reconstructive Surgery; ATTEND Surgery Plastic and Reconstructive Surgery
DX: M79.3 Panniculitis, unspecified (principal); B85.2 Pediculosis, unspecified; E65 Localized adiposity; E66.01 Morbid (severe) obesity due to excess calories; Z68.39 Body mass index [BMI] 39.0-39.9, adult; I11.9 Hypertensive heart disease without heart failure; J44.89 Other specified chronic obstructive pulmonary disease; E11.42 Type 2 diabetes mellitus with diabetic polyneuropathy; E11.43 Type 2 diabetes mellitus with diabetic autonomic (poly)neuropathy; K31.84 Gastroparesis; E11.319 Type 2 diabetes mellitus with unspecified diabetic retinopathy without macular edema; I25.10 Atherosclerotic heart disease of native coronary artery without angina pectoris; G43.909 Migraine, unspecified, not intractable, without status migrainosus; G93.2 Benign intracranial hypertension; E78.00 Pure hypercholesterolemia, unspecified; E03.9 Hypothyroidism, unspecified; M19.90 Unspecified osteoarthritis, unspecified site; K21.9 Gastro-esophageal reflux disease without esophagitis; M10.9 Gout, unspecified; F32.A Depression, unspecified; F41.1 Generalized anxiety disorder; K76.0 Fatty (change of) liver, not elsewhere classified; M54.50 Low back pain, unspecified; I25.2 Old myocardial infarction; Z79.84 Long term (current) use of oral hypoglycemic drugs; Z79.82 Long term (current) use of aspirin; Z79.890 Hormone replacement therapy; Z79.85 Long-term (current) use of injectable non-insulin antidiabetic drugs; Z79.899 Other long term (current) drug therapy; Z91.011 Allergy to milk products; Z88.8 Allergy status to other drugs, medicaments and biological substances; Z91.018 Allergy to other foods; Z95.5 Presence of coronary angioplasty implant and graft
CPT/HCPCS: 81025; 64999; 85025; 83036; 15830; G0378; J2250; J1644; J1100; J2710; J0690 ×2; J2405 ×2; J2001; J3010; J1885; J1170 ×2; J2795; J2704; J1790

== ENCOUNTER → 2023-11-29 | Outpatient (CLI) | payer BC, OTHER ==
[2023-11-29 10:57] VITALS: BP 113/79; PULSE 69; RESP 16; TEMP 98; BMI 37.0
== END ==
LOC: BARWHC3 08:48
PROVIDERS: ATTEND Surgery Plastic and Reconstructive Surgery
DX: E66.01 Morbid (severe) obesity due to excess calories (principal); Z91.018 Allergy to other foods; Z88.8 Allergy status to other drugs, medicaments and biological substances; Z91.011 Allergy to milk products; Z68.37 Body mass index [BMI] 37.0-37.9, adult
CPT/HCPCS: 99212

== ENCOUNTER → 2024-03-24 | Outpatient (CLI) | payer BC ==
--- NOTE | 2024-03-25 08:31 | XR ---
EXAMINATION TYPE: XR abdomen 1V DATE OF EXAM: 03/24/2024 COMPARISON: NONE HISTORY: Pain TECHNIQUE: Single supine KUB image of the abdomen is obtained FINDINGS: Small bowel demonstrates no evidence for dilatation or air fluid levels. Gas and fecal material is seen in non-distended colon. No convincing evidence for pneumoperitoneum. No unusual calcifications. No significant constipation. The lung bases are clear. The osseous structures are intact. IMPRESSION: 1. Overall nonobstructive bowel gas pattern. [facility], , 03/25/2024 8:28 AM
== END | disposition home or self-care (01) ==
LOC: RADXRMAIN 16:57
PROVIDERS: ATTEND Family Medicine
DX: K59.00 Constipation, unspecified (principal)
CPT/HCPCS: 74018

== ENCOUNTER → 2024-07-07 | Outpatient (CLI) | payer BC ==
--- NOTE | 2024-07-07 13:32 | XR ---
EXAMINATION TYPE: XR sacrum coccyx DATE OF EXAM: 07/07/2024 COMPARISON: CT abdomen and pelvis July 03, 2021 CLINICAL INDICATION: Female, 49 years old with history of M53.3 Coccyx pain; TECHNIQUE: 2 views of sacrum and coccyx. FINDINGS: Slightly suboptimal frontal view with lucency from overlying bowel gas. No acute displaced fracture in sacrum or coccyx is clearly seen. Scattered small bilateral pelvic phleboliths and bilate ral vascular calcification is noted. IMPRESSION: As above. [facility], , 07/07/2024 1:30 PM
== END | disposition home or self-care (01) ==
LOC: RADXRMAIN 12:34
PROVIDERS: ATTEND Psychiatry & Neurology Neurology
DX: M53.3 Sacrococcygeal disorders, not elsewhere classified (principal); I87.8 Other specified disorders of veins
CPT/HCPCS: 72220

== ENCOUNTER → 2024-09-25 | Outpatient (CLI) | payer BC ==
--- NOTE | 2024-09-25 13:00 | BD ---
EXAMINATION TYPE: Axial Bone Density DATE OF EXAM: 09/25/2024 CLINICAL HISTORY: 49 years old Female. ICD-10 CODE: Z13.820 SCREENING FOR OSTEOPOROSIS , Additional History: Height: 65 Weight: 230.2 FRAX RISK QUESTIONS: Alcohol (3 or more units per day): no Family History (Parent hip fracture): no Glucocorticoids (More than 3mos): no (Ex: prednisone, prednisolone, methylprednisolone, dexamethasone, and hydrocortisone). History of Fracture in Adulthood: no Secondary Osteoporosis: 1. Type 1 Diabetes: no 2. Hyperthyroidism: no 3. Menopause before 45: no 4. Malnutrition: no 5. Chronic liver disease: no Rheumatoid Arthritis: no Current Tobacco Use: no RISK FACTORS HISTORY OF: Hip Fracture (Right/Left): no Spine Fracture: no History of Wrist Fracture: no Surgery to Spine/Hip(right/left)/Wrist (right/left): no MEDICATIONS: Thyroid Medications: levothyroxine How Long: past 8 years Osteoporosis Medications: no EXAM MEASUREMENTS: Bone mineral densitometry was performed using the [employer] System. Bone mineral density as measured about the Lumbar spine is: ----- L1-L4(G/cm2): 1.489 T Score Values are as follows: ----- L1: 1.5 ----- L2: 2.0 ----- L3: 3.7 ----- L4: 2.8 ----- L1-L4: 2.6 Z Score Values are as follows: ----- L1: 0.8 ----- L2: 1.2 ----- L3: 2.9 ----- L4: 2.1 ----- L1-L4: 1.8 Baseline Study Bone mineral density about the R hip (g/cm2): 1.231 Bone mineral density about the L hip (g/cm2): 1.245 T Score values are as follows: -----R Neck: 0.7 -----L Neck: 1.1 -----R Total: 1.8 -----L Total: 1.9 Z Score values are as follows: -----R Neck: 0.7 -----L Neck: 1.1 -----R Total: 1.4 -----L Total: 1.5 Baseline Study FRAX%s: The graph provided illustrates a 3.1% chance for a major osteoporotic fx and a 0.0% chance fo r the hips probability for fx in 10 years time. IMPRESSION: Normal (Values between +1 and -1 indicate normal bone mass). Consider repeating this study in 5 year s or sooner if there is some new clinical indication. NOTE: T-SCORE=SD OF THE YOUNG ADULT MEAN. [facility], , 09/25/2024 12:58 PM
--- NOTE | 2024-09-25 16:19 | MM ---
Reason for Exam: Screening (asymptomatic). Last mammogram was performed 2 year(s) and 6 month(s) ago. Patient History: Menarche at age 10. Patient has no children. Postmenopausal. Hormonal Contraceptives, starting at age 19 for 2 years. Maternal grandmother had breast cancer under age 50. Maternal grandmother had breast cancer at or over age 50. Maternal aunt had breast cancer. Risk Values: Faviola 5 year model risk: 1.2%. NCI Lifetime model risk: 10.8%. Prior Study Comparison: 04/02/2019 Bilateral Screening Mammogram, [facility]. 06/21/2020 Bilateral Screening Mammogram, [facility]. 04/12/2022 Bilateral MG 3D screening mammo w/cad, [facility]. Tissue Density: There are scattered areas of fibroglandular density. Findings: Analyzed By CAD. Bilateral benign round calcifications are demonstrated. Benign vascular calcifications laterally on the right. There is no suspicious group of microcalcifications or new suspicious mass in either breast. Overall Assessment: Benign, BI-RAD 2 Management: Screening Mammogram of both breasts in 1 year. Patient should continue monthly self-breast exams. A clinical breast exam by your physician is recommended on an annual basis. This exam should not preclude additional follow-up of suspicious palpable abnormalities. Note on Faviola scores and lifetime risk: 1. A Faviola score greater than 3% is considered moderate risk. If this is the case, consider specialist referral to assess eligibility for a risk reducing agent. 2. If overall lifetime risk for the development of breast cancer is 20% or higher, the patient may qualify for future screening with alternating mammogram and breast MRI. [facility], , 09/25/2024 4:16 PM. Electronically signed and approved by: Swathi Morgan M.D. Radiologist
== END | disposition home or self-care (01) ==
LOC: RADMAMWWP 11:04
PROVIDERS: ATTEND Family Medicine
DX: Z12.31 Encounter for screening mammogram for malignant neoplasm of breast (principal); R92.323 Mammographic fibroglandular density, bilateral breasts; Z78.0 Asymptomatic menopausal state; Z80.3 Family history of malignant neoplasm of breast; Z13.820 Encounter for screening for osteoporosis
CPT/HCPCS: 77063; 77067; 77080

== ENCOUNTER → 2024-12-25 | Outpatient (CLI) | payer BC ==
--- NOTE | 2024-12-25 13:43 | CT ---
EXAMINATION TYPE: CT abdomen pelvis wo con DATE OF EXAM: 12/25/2024 12:57 PM COMPARISON: CT abdomen pelvis most recent from 07/03/2021. CLINICAL INDICATION: Female, 49 years old with history of Z87.442 PER HX URI CALC R10.32 LLQ PAIN M54 .50; left sided abd pain radiates to flank TECHNIQUE: Axial CT abdomen pelvis wo con;Sagittal and coronal reformats were created on a separate workstation. Contrast used: mL of , (none if empty) Oral contrast used: without Oral Contrast (none if empty) CT DLP: 1165 mGycm, Automated exposure control for dose reduction was used. FINDINGS: LOWER CHEST: Unremarkable standing radiograph in the left anterior descending coronary artery. ABDOMEN LIVER: Unremarkable GALLBLADDER AND BILE DUCTS: The gallbladder is surgically absent. PANCREAS: Unremarkable. SPLEEN: Unremarkable. ADRENAL GLANDS: Unremarkable. KIDNEYS AND URETERS: No evidence of hydronephrosis or obstructing renal calculus. The ureters are unr emarkable. PELVIS BLADDER: No evidence for wall thickening or mass given limitations of exam. REPRODUCTIVE: Unremarkable. ABDOMEN & PELVIS STOMACH AND BOWEL: No evidence of bowel obstruction. The appendix is normal. Redundant sigmoid colon redundant colon in the left abdomen. PERITONEUM/RETROPERITONEUM: No evidence of pneumoperitoneum or free fluid. VASCULATURE: No evidence of aortic aneurysm. MUSCULOSKELETAL: No acute osseous abnormalities LYMPH NODES: No gross evidence for lymphadenopathy. SOFT TISSUE/ABDOMINAL WALL: Unremarkable IMPRESSION: 1. No evidence for acute abdominal process. No obstructive uropathy or renal calculus. The appendix is normal. 2. Redundant colon with large amount of stool in the left abdomen. [facility], , 12/25/2024 1:41 PM
== END | disposition home or self-care (01) ==
LOC: RADCTMAIN 12:24
PROVIDERS: ATTEND Family Medicine
DX: R10.32 Left lower quadrant pain (principal); M54.50 Low back pain, unspecified; Z87.442 Personal history of urinary calculi; Q43.8 Other specified congenital malformations of intestine
CPT/HCPCS: 74176